=== PATIENT | male | born 1940 | race Caucasian/White ===

== ENCOUNTER 2016-04-12 06:26 | Inpatient (IN) | payer MEDICARE, MEDICAID ==
[~2016-04-12] VITALS: Ht 172.7 cm; Wt 87.0 kg
[~2016-04-12 06:26] MED LIST: ASPI81TA4 PO; CARV3.12 PO; DOXY100T16 PO; GUAI1TAB PO; LASI40TA PO; LEVO750T33 PO; NICO14DI20 TD; POTA10CA PO; PRAV20TA2 PO; PROA1AER INH; SENN-23 PO
[2016-04-12] MEDS ORDERED: ASPIRIN 81 MG CHEW TABLET As Ordered ONE (06:44)
[2016-04-12 06:58] LABS: BASO # 0.1 K/mm3 (0.0-0.2); BASO % 0.5 % (0.0-1.0); EOS # 0.1 K/mm3 (0.0-0.50); LARGE UNSTAINED CELL # 0.1 K/mm3 (0.0-0.4); LARGE UNSTAINED CELL % 1.1 % (0.0-4.0); LYMPH # 1.3 K/mm3 (1.5-4.5); LYMPH % 11.6 % (24.0-44.0); MEAN CORPUSCULAR HEMOGLOBIN 28.6 pg (27.0-33.0); MEAN CORPUSCULAR HGB CONC 32.4 g/dl (32.0-36.5); MEAN CORPUSCULAR VOLUME 88.2 fl (80.0-96.0); MONO # 0.4 K/mm3 (0.0-0.8); NEUTROPHILS # 9.1 K/mm3 (1.8-7.7); NEUTROPHILS % 81.9 % (36.0-66.0); PLATELET COUNT, AUTOMATED 219 k/mm3 (150-450); RED CELL DISTRIBUTION WIDTH 13.9 % (11.5-14.5); WHITE BLOOD COUNT 11.1 K/mm3 (4.0-10.0)
[2016-04-12 07:18] LABS: CREATININE FOR GFR 1.73 MG/DL (0.70-1.30); GLOMERULAR FILTRATION RATE 41.3 (>42); POTASSIUM SERUM 4.1 MEQ/L (3.5-5.1)
[2016-04-12 07:22] LABS: INR 3.13
[2016-04-12 07:28] LABS: ALBUMIN 4.1 GM/DL (3.2-5.2); ALBUMIN/GLOBULIN RATIO 1.14 (1.00-1.93); BILIRUBIN,DIRECT 0.6 MG/DL (0.0-0.2); BILIRUBIN,TOTAL 1.5 MG/DL (0.2-1.0); MAGNESIUM LEVEL 2.2 MG/DL (1.8-2.4); TOTAL PROTEIN 7.7 GM/DL (6.4-8.2)
[2016-04-12] MEDS ORDERED: AMIODARONE 150MG/3ML INJ (J0282) As Ordered ONE (07:32)
--- NOTE | 2016-04-12 08:17 | REP ---
Clinical: Abdominal pain. Findings: Small amount of perihepatic and pelvic ascites is appreciated of uncertain etiology. Calcifications within the right lobe of the liver appear bulky and chronic and may be related to prior instrumentation or old insult. Splenic parenchymal calcifications and calcified granuloma at the lung bases are also identified which may reflect prior granulomas disease. The pancreas is grossly unremarkable as are the bilateral adrenal glands and kidneys. Chronic-appearing perinephric stranding is appreciated bilaterally without hydronephrosis small intrarenal calcifications appear vascular. The gallbladder cannot exclude mild wall thickening or layering sludge and should be correlated clinically to exclude acute cholecystitis. The enteric system is without obstruction or acute inflammatory process and a normal terminal ileum and appendix are identified in the right lower quadrant. Pelvis demonstrates moderately prominent prostate gland with mass effect on the base of the bladder which is otherwise normal by noncontrast evaluation. Small fat containing inguinal hernias noted. The patient is status post aortoiliac stenting for aneurysm repair. No significant adenopathy. No free air. Musculoskeletal structures demonstrate degenerative changes. Lung bases demonstrate minimal right basilar atelectasis and pleural reaction. Impression: 1. Small amount of ascites in the perihepatic and pelvic distribution of uncertain etiology. 2. Subtle changes of the gallbladder as noted above may reflect cholecystitis and should be correlated with physical examination and ultrasound if necessary. 3. Evidence to suggest prior granulomas disease. 4. Further chronic changes include atherosclerotic disease with aortoiliac stenting for aneurysm, degenerative changes the musculoskeletal structures, fat containing inguinal hernias, and moderately prominent prostate gland. Signed by Denzel Del Real MD 04/12/2016 08:08 A
--- NOTE | 2016-04-12 08:21 | REP ---
AP portable sitting chest radiograph 04/12/2016 Indication: Chest pain Comparison: PA and lateral chest 06/15/2014, 08/12/2015 There has been a prior median sternotomy. Cardiac silhouette is mildly enlarged with left ventricular prominence, unchanged. There is mild interstitial prominence with lower lobe predominance most compatible with interstitial scarring , also accentuated by AP portable technique. The appearance is stable. Bones and soft tissues within normal limits. Impression: mild cardiomegaly again noted with evidence of prior median sternotomy. Mild generalized interstitial prominence contributed to by portable technique and likely some underlying interstitial fibrotic scarring . Superimposed mild pulmonary vascular congestion is not excluded. Signed by Nicky Yee MD 04/12/2016 08:12 A
--- NOTE | 2016-04-12 08:36 | REP ---
CT chest without contrast 04/12/16. Indication: Chest pain Comparison: Chest radiographs 08/12/2015 from [facility], and 04/12/16 Findings: The patient has a indwelling stent within the region of the aortic valve/ aortic root. Moderate calcifications and/or stents noted within the region of the left anterior descending coronary artery and the left circumflex coronary artery. Cardiac silhouette is mildly enlarged with left ventricular prominence. There are mediastinal nodes measuring up to 10 mm short-axis diameter and hilar nodes, some of which are calcified, consistent with old granulomatous disease Mild interstitial changes are noted bilaterally with lower lobe predominance. There is trace right basilar pleural effusion . There is a 7 mm noncalcified pulmonary nodule in the right lower lobe, image 63 series 204. Calcified granuloma is present within the posterior basilar segment right lower lobe on image 79 series 204. Small right apical bullous changes are seen. Coarse calcifications are seen within the posterior segment right lobe of liver most compatible with old granulomatous disease. There is minimal ascites surrounding the liver. There are a few calcified granulomata in the spleen. Visualized portions of pancreas and adrenal glands are normal. Gallbladder is partially contracted with thickened and/or sludge. There is a abdominal aortic by iliac stent incompletely included in field of view and was placed for a abdominal aortic aneurysm. Soft tissue fullness/lobular contour in the lateral mid pole left kidney may represent prominent lobulation and less likely mass. Impression 1. Prior median sternotomy; evidence of prior stent placement traversing the aortic valve. There is mild cardiomegaly with left ventricular prominence, unchanged 2. Interstitial changes bilaterally may be secondary to interstitial scarring pneumonitis or minimal interstitial pulmonary edema. There is trace right basilar pleural effusion 3. Noncalcified 7 mm pulmonary nodule within the right lower lobe for which follow-up CT chest is recommended in 3 months. 4. Mural thickening within the gallbladder and intraluminal sludge. Consider gallbladder old 5. Lobular contour lateral mid pole left kidney. Recommend follow-up renal ultrasound to exclude developing mass. Trace abdominal ascites Signed by Nicky Yee MD 04/12/2016 08:26 A
[2016-04-12] MEDS ORDERED: SENOKOT S TAB PO SCH (09:00)
[2016-04-12 09:46] LABS: FREE T4 1.59 NG/DL (0.76-1.46)
[2016-04-12] MEDS ORDERED: AMIO0.1T PO (09:48)
[2016-04-12] MEDS ORDERED: POTA10CA PO (09:48)
[2016-04-12] MEDS ORDERED: XARE20TA PO (09:48)
[2016-04-12] MEDS ORDERED: FURO40TA2 PO (09:48)
--- NOTE | 2016-04-12 10:07 | REP ---
Complete abdominal sonography: History: Abnormal CT study. CT examination is from earlier this same date. History of abdominal pain. Findings: Scanning through the right upper quadrant of the abdomen demonstrates a slightly contracted appearing thick-walled gallbladder without visible stone or polyp. No tenderness is seen. The gallbladder wall measures up to 5 mm in thickness. Common bile duct is normal measuring 0.4 cm in diameter. Coarse hepatic texture is seen. There is a fairly large coarse calcification in the right lobe of the liver corresponding to the calcified granuloma seen in this location on CT. No liver mass lesion is appreciated. There is no evidence of ascites. The pancreas is obscured by abdominal gas. Spleen is borderline in size displaying echogenic foci consistent with splenic granuloma. This corresponds to the CT findings. No focal splenic lesion is seen. Renal cortical echogenicity pattern is normal. There is cortical scarring affecting the upper and lower pole left kidney. No mass lesion is seen. No hydronephrosis is seen on either side. Renal cortical echogenicity pattern is normal. Left renal dimensions are 11.3 x 5.8 x 5.5 cm. Right kidney measures 11.2 x 4.8 x 4.5 cm. Impression: Granulomatous calcifications in the liver and spleen. Contracted appearing slightly thick-walled gallbladder without stones. No hydronephrosis seen. Renal cortical scarring upper and lower pole left kidney. Signed by Luis Dumont MD 04/12/2016 10:43 A
[2016-04-12 15:07] VITALS: BP 116/72
[2016-04-12] MEDS: RIVAROXABAN 20 MG TAB (XARELTO) PO SCH (16:54)
[2016-04-12] MEDS ORDERED: FUROSEMIDE 40 MG TAB PO SCH (17:00)
[2016-04-12 20:00] VITALS: BP 121/87
--- NOTE | 2016-04-12 20:17 | HPEPDOC ---
General Date of Admission 04/12/2016 Primary Care Physician: Cornel Mayes Attending Physician: MERCEDES GUADARRAMA MD Chief Complaint The patient is a 75-year-old male admitted with a reason for visit of Palpitations. Source: Patient Exam Limitations: No limitations History of Present Illness Patient is a 75 year old male with past medical history of CAD and COPD presenting with racing heart rate and abdominal pain. This is the first time the patient has experienced this. The patient first noticed his heart rate was fast 4 days ago. He uses an at home blood pressure monitor 4-5 times a day and noticed it upon using the monitor. He does not recall a precipitating event when he first noticed his heart rate. Over the last 4 days, the heart rate has been fluctuating, however patient did not keep track of the rate, only that it has been changing. Yesterday it was sustained at 140, however the patient did not have any symptoms. He denied dizziness, syncope and chest pain at the time. Patient called [facility] because he was concerned of his heart rate and they told him to go to the hospital. Upon entering [facility], patient presented with atrial flutter and was subsequently given 150 mg amiodarone IV. Patient no longer has atrial flutter but now continues to have atrial fibrillation. Highest heart rate today was 146. While examining the patient, the heart rate did not get above 120. Patient had an aortic valve replacement in January [address] Landry and coronary stents in December [address] Del Rosario at [facility]. Patient admits that he has had mild abdominal pain and bloating that has been present since yesterday. He describes it as a band that goes across his whole abdomen. He only feels the pain and bloating after he eats. Patient states the pain is "more of a pressure feeling." This is the first time he has ever had this pain. Denies chest pain, shortness of breath, nausea, vomiting, diarrhea, hematemesis, hematochezia, dizziness, syncope, and hematuria. Home Medications Scheduled (Aspirin EC Low Dose) 81 Mg Tab 81 MG PO DAILY (Reported) Amiodarone HCl (Amiodarone HCl) 100 Mg Tab 100 MG PO DAILY (Reported) Amiodarone HCl (Amiodarone HCl) 200 Mg Tab 200 MG PO Q12H Docusate Sod/Senna (Senna-S 8.6-50 mg) 1 Tab Tab 1 TAB PO BID (Reported) Furosemide (Furosemide) 40 Mg Tab 40 MG PO BID (Reported) Hydralazine HCl (Hydralazine HCl) 10 Mg Tab 10 MG PO BID Isosorbide Mononitrate (Isosorbide Mononitrate ER) 30 Mg Tab 30 MG PO DAILY Metoprolol Tartrate (Metoprolol Tartrate) 25 Mg Tab 25 MG PO Q12H Nicotine (Nicotine Transdermal Syst) 21 Mg/24 Hr Dis 1 PATCH TD DAILY Potassium Chloride (Klor-Con M10) 10 Meq Tabcr 10 MEQ PO BID (Reported) Rivaroxaban (Xarelto) 20 Mg Tab 20 MG PO QPM (Reported) Scheduled PRN Albuterol Sulfate (Proair Hfa) 108 Mcg/Act Aer 2 PUFFS INH PRN PRN PRN SHORTNESS OF BREATH (Reported) Allergies Coded Allergies: Budesonide (Verified Allergy, Intermediate, SWELLING (LEGS , STOMACHE), ) Formoterol (Verified Allergy, Intermediate, SWELLING (LEGS , STOMACHE), ) Ibuprofen (Verified Allergy, Unknown, 06/16/14) "I DONT KNOW. I CORNELIO FORGET. MY VISION I THINK" Past Medical History Medical History 1. CAD 2. COPD Surgical History 1. Aortic Valve replacement January 14 2016 2. Coronary stents December 2006 3. CABG 2003 4. 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 Pets: Has kittens at home and is allergic to them. Review of Symptoms Constitutional: Denies: Chills, Fatigue, Fever, Weight Loss Pulmonary: Denies: Cough, Dyspnea, Pleuritic Chest Pain Cardiovascular: Reports: Palpitations, Denies: Chest Pain, Edema, Orthopnea Gastrointestinal: Reports: Abdominal Pain, Denies: Constipation, Diarrhea, Hematochezia, Nausea, Vomiting Genitourinary: Denies: Dysuria, Hematuria Physical Examination General Exam: Positive: Alert, No Acute Distress Eye Exam: Positive: EOMI, Other Eye Symptoms (Arcus present bilaterally), PERRLA ENT Exam: Positive: Atraumatic, Mucous membr. moist/pink Neck Exam: Positive: Supple, Negative: JVD, Lymphadenopathy Chest Exam: Positive: Clear to auscultation, Negative: Rales, Rhonchi, Wheezing Heart Exam: Positive: Irregular Rhythm, Normal S1, Normal S2, Tachycardic, Negative: Gallops, Murmurs, Rubs Telemetry: Positive: Atrial fibrillation Abdomen Exam: Positive: Normal bowel sounds, Other (Negative Valadez's sign. Negative Psoas test.), Tenderness, Negative: Mass, Soft Extremity Exam: Negative: Clubbing, Cyanosis, Edema Neuro Exam: Positive: Cranial Nerves 3-12 NL, Sensation Intact, Strength at 5/ 5 X4 ext Vital Signs Blood pressure: 110/84, Pulse: 112, Respirations: 20, Pulse Oximetry 95% RA Height (in): 172.2 Weight (kg): 84.82 BMI (kg): 28.4 Laboratory Data Labs 24H Laboratory Tests 2 04/12/16 06:45: Aspartate Amino Transf (AST/SGOT) 21, Alanine Aminotransferase (ALT/SGPT) 18, Alkaline Phosphatase 97, Total Bilirubin 1.5H, Direct Bilirubin 0.6H, Albumin 4.1, Albumin/Globulin Ratio 1.14, Amylase Level 48, Free Thyroxine 1.59H, Lipase 164, Magnesium Level 2.2, Thyroid Stimulating Hormone (TSH) 3.410, Total Protein 7.7 04/12/16 06:46: Activated Partial Thromboplast Time 43.4H, Anion Gap 8, B-Type Natriuretic Peptide 598H, White Blood Count 11.1H, Red Blood Count 5.17, Hemoglobin 14.8, Hematocrit 45.6, Mean Corpuscular Volume 88.2, Mean Corpuscular Hemoglobin 28.6 , Mean Corpuscular Hemoglobin Concent 32.4, Red Cell Distribution Width 13.9, Platelet Count 219, Neutrophils (%) (Auto) 81.9H, Lymphocytes (%) (Auto) 11.6L, Monocytes (%) (Auto) 4.0, Eosinophils (%) (Auto) 1.0, Basophils (%) (Auto) 0.5, Neutrophils # (Auto) 9.1H, Lymphocytes # (Auto) 1.3L, Monocytes # (Auto) 0.4, Eosinophils # (Auto) 0.1, Basophils # (Auto) 0.1, Blood Urea Nitrogen 31H, Creatinine 1.73H, Sodium Level 136, Potassium Level 4.1, Chloride Level 97L, Carbon Dioxide Level 31, Calcium Level 9.0, Total Creatine Kinase 142, Creatine Kinase MB 3.9H, Creatine Kinase MB Relative Index 2.74, Glomerular Filtration Rate 41.3L, Large Unclassified Cells # 0.1, Large Unclassified Cells % 1.1, Prothromb Time International Ratio 3.13, Prothrombin Time 32.2H, Troponin I 0.04 04/12/16 07:23: Lactic Acid Level 2.0 CBC/BMP Laboratory Tests 04/12/16 06:46 Calcium Level 9.0, Total Creatine Kinase 142, Red Blood Count 5.17, Mean Corpuscular Volume 88.2, Mean Corpuscular Hemoglobin 28.6, Mean Corpuscular Hemoglobin Concent 32.4, Red Cell Distribution Width 13.9, Neutrophils (%) (Auto ) 81.9 H, Lymphocytes (%) (Auto) 11.6 L, Monocytes (%) (Auto) 4.0, Eosinophils ( %) (Auto) 1.0, Basophils (%) (Auto) 0.5, Neutrophils # (Auto) 9.1 H, Lymphocytes # (Auto) 1.3 L, Monocytes # (Auto) 0.4, Eosinophils # (Auto) 0.1, Basophils # (Auto) 0.1 Assessment/Plan Problems: (1) Atrial fibrillation, rapid Status: Resolved Problem Text: Patient was given 150mg amiodarone IV with no improvement in rate control. Patient was switched to 100mg amiodarone PO for the floor. Cardiology has been consulted. Patient had an aortic valve replacement in January 2016 and numerous other cardiac procedures including coronary stents in 2006 and CABG in 2003. These could likely be the etiology of this new onset atrial fibrillation. His potassium and magnesium levels are within normal range. Admission troponin was normal and CK-MB was mildly elevated. EKG showed atrial flutter on admission and right axis deviation. Patient is being admitted to the floor on telemetry and continued amiodarone. We will continue to monitor him. (2) Abdominal pain Status: Resolved Problem Text: Patient complains of mild abdominal pain and bloating across the entire abdomen after eating of one day duration. Patient denies any changes frequency or caliber of bowel movements. Ischemic colitis seems less likely due to lack of hematochezia and only a slightly tender abdomen. CT of the abdomen showed a slightly thickened gallbladder wall without stones and LFT's were within normal range, less likely gallbladder in etiology. AAA remains in differential considering patient had a AAA repair in the past, however AAA stent is in place, and largest dimension is less than [address] of the abdomen did not show any signs of obstruction. Patient could have appendicitis. Pancreatic enzymes were negative. (3) CHF (congestive heart failure) Status: Chronic Problem Text: Patient had a mildly elevated BNP of 598. He has a history of symptomatic CHF for which he had an aortic valve replacement in January 2016. Since his valve replacement, he has not had any edema, shortness of breath, orthopnea or chest pain.He does not currently have any symptoms of an CHF exacerbation. He continues to take Lasix 40mg BID. We will continue to monitor. (4) Pulmonary nodule Status: Acute Problem Text: CT chest showed 7 mm pulmonary nodule within the right lower lobe. Follow up CT scan in 3 months. Plan / VTE VTE Prophylaxis Ordered?: Yes (Xarelto) GME ATTESTATION GME ATTESTATION My preceptor for this patient encounter was physically present in the building during the encounter and was fully available. As needed, all aspects of the patient interview, examination, medical decision making process, and medical care plan development were reviewed and approved by the preceptor. Preceptor is aware and concurs with the plan as stated in the body of this note and will attest to such by his/her cosignature. PATRIZIA ALLEN DO Apr 12, 2016 12:01
[2016-04-12] MEDS: SENOKOT S TAB PO SCH (21:07)
[2016-04-12] MEDS: POTASSIUM CHLORIDE 10 MEQ SR TABLET PO SCH (21:07)
--- NOTE | 2016-04-12 23:34 | EDDOCDS ---
Nurse's Notes [facility] Name: Say Matute Age: 75 yrs Sex: Male : 1940 Arrival Date: 04/12/2016 Time: 06:26 Bed Admit Hold Private MD: Diagnosis: Atrial fibrillation and flutter;Abdominal and pelvic pain-rule out left renal mass, rule out gallbladder sludge Presentation: 04/12 06:33 Presenting complaint:. [facility] 06:33 Presenting complaint:. [facility] 06:36 Presenting complaint: Patient states: Racing pulse for about four days, now pain in [facility] stomach. 06:36 Acuity: BAMBI Level 2 [facility] 06:40 Adult Sepsis Screening: The patient does not have new or worsening altered mentation. [facility] Patient has a respiratory rate of greater than or equal to 22 (1 point). Systolic blood pressure is greater than 100. Patient has a qSOFA score of 1- Negative Sepsis Screen. Suicide/Homicide risk assessment- the patient denies having any suicidal and/or homicidal ideations and does not present with any other emotional, behavioral or mental health complaints. 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 Transition of care: patient was not received from another setting of care. 06:40 Method Of Arrival: Walkin/Carried/Asstd [facility] Triage Assessment: 06:44 General: Appears in no apparent distress, comfortable, Behavior is appropriate for age, [facility] cooperative. Pain: Location: abdomen Pain currently is 0 out of 10 on a pain scale. At worst was 5 out of 10 on a pain scale. The patient is triaged at the bedside. See Assessment in Nurses Notes section of ED record. Neurological: Level of Consciousness is awake, alert, Oriented to person, place, time. Respiratory: Airway is patent Respiratory effort is even, labored, Respiratory pattern is regular, symmetrical. Derm: Skin is pink, warm & dry. Musculoskeletal: Range of motion intact in all extremities. Historical: - Allergies: no known allergies; - Home Meds: 1. Lasix 40 mg Oral tab 1 tab 2 times per day (Last dose: 04/11/2016) 2. Xarelto 20 mg oral tab 1 tab once daily 3. Potassium Chloride Unknown Oral 1 cap 2 times per day 4. amiodarone 100 mg Oral tab 1 tab once daily (Last dose: 04/12/2016 05:00) - PMHx: CAD; COPD; - PSHx: CABG (2003); Stents, Coronary; AAA Repair; heart valve replacement; - Social history: Smoking status: Patient uses tobacco products, heavy tobacco smoker. No barriers to communication noted. - Family history: Not pertinent. - : The pt / caregiver states he / she is on anticoagulants: Xarelto Home medication list is obtained from the patient. - Exposure Risk Screening:: None identified. Assessment: 06:53 General: Appears in no apparent distress, comfortable, Behavior is appropriate for age, nn1 cooperative. Pain: Location: right lower quadrant and left lower quadrant Pain currently is 5 out of 10 on a pain scale. Cardiovascular: Capillary refill < 3 seconds Heart tones S1 S2 present Rhythm is atrial fibrillation Chest pain is denied. Respiratory: Airway is patent Respiratory effort is even, unlabored, Respiratory pattern is regular, symmetrical. GI: Abdomen is non- distended Bowel sounds present X 4 quads. Derm: Skin is normal. 07:30 General: Appears in no apparent distress, comfortable, Behavior is appropriate for age, ead cooperative, pleasant, Orders received for new medications. Dr. Andujar updated of pt's heart rate now maintaining between 60-120. Medication orders currently on hold. Will continue to monitor pt. Pt's family at bedside and updated on care plan. . Neurological: Level of Consciousness is awake, alert, obeys commands, Oriented to person, place, time. Respiratory: Airway is patent Respiratory effort is even, unlabored. Derm: Skin is pink, warm & dry. 08:13 Adult Sepsis Screening: The patient does not have new or worsening altered mentation. ead Patient has a respiratory rate of greater than or equal to 22 (1 point). Systolic blood pressure is greater than 100. Patient has a qSOFA score of 1- Negative Sepsis Screen. 08:30 General: Appears in no apparent distress, comfortable, Behavior is appropriate for age, ead cooperative. Neurological: No deficits noted. Cardiovascular: Rhythm is atrial fibrillation Chest pain is denied. Respiratory: Airway is patent Respiratory effort is even, unlabored. Derm: Skin is pink, warm & dry. 09:30 General: Appears in no apparent distress, comfortable, Behavior is appropriate for age, ead cooperative. Pain: Denies pain. Neurological: No deficits noted. Cardiovascular: Rhythm is atrial fibrillation. Respiratory: Airway is patent Respiratory effort is even, unlabored, Denies shortness of breath. Derm: Skin is pink, warm & dry. 10:30 General: Appears in no apparent distress, comfortable, Behavior is appropriate for age, ead cooperative. Neurological: No deficits noted. Cardiovascular: Rhythm is atrial fibrillation. Respiratory: Airway is patent Respiratory effort is even, unlabored. Derm: Skin is pink, warm & dry. 11:30 General: Appears in no apparent distress, comfortable, Behavior is appropriate for age, ead cooperative. Pain: Denies pain. Neurological: No deficits noted. Cardiovascular: Rhythm is atrial fibrillation Chest pain is denied. Respiratory: Airway is patent Respiratory effort is even, unlabored. Derm: Skin is pink, warm & dry. 12:00 General: pt provided with portable DVD player and dvd to watch due to no tv in room. Pt ead updated on wait for admission bed assignment. . Cardiovascular: Rhythm is atrial fibrillation. Respiratory: Airway is patent Respiratory effort is even, unlabored. Derm: Skin is pink, warm & dry. 12:30 General: Appears in no apparent distress, comfortable, Behavior is appropriate for age, ead cooperative. Neurological: No deficits noted. Cardiovascular: Rhythm is atrial fibrillation. Respiratory: Airway is patent Respiratory effort is even, unlabored. Derm: Skin is pink, warm & dry. 13:30 General: Appears in no apparent distress, comfortable. Cardiovascular: Rhythm is atrial ead fibrillation. Respiratory: Airway is patent Respiratory effort is even, unlabored. Derm: Skin is pink, warm & dry. 14:30 General: Appears in no apparent distress, comfortable, Behavior is appropriate for age, ead cooperative. Neurological: No deficits noted. Cardiovascular: Capillary refill < 3 seconds Rhythm is atrial fibrillation Chest pain is denied. Respiratory: Airway is patent Respiratory effort is even, unlabored. Derm: Skin is pink, warm & dry. 15:30 General: Appears in no apparent distress, comfortable, Behavior is appropriate for age, ead cooperative, pleasant. Neurological: No deficits noted. Cardiovascular: Rhythm is atrial fibrillation. Respiratory: Airway is patent Respiratory effort is even, unlabored. Derm: Skin is pink, warm & dry. Vital Signs: 06:44 BP 121 / 70; Pulse 146; Resp 24; Temp 98.6; Pulse Ox 95% ; Weight 84.82 kg; Height 5 cjh ft. 8 in. (172.72 cm); Pain 510; 07:18 BP 114 / 58 (auto/); ead 07:18 Pulse 116 MON; Pulse Ox 96% ; ead 07:30 BP 108 / 59 (auto/); ead 07:30 Pulse 106 MON; Pulse Ox 96% ; ead 07:45 BP 102 / 69 (auto/); ead 07:52 Pulse 123 MON; Pulse Ox 98% ; ead 08:00 BP 113 / 72 (auto/); ead 08:00 Pulse 106 MON; Pulse Ox 96% ; ead 08:08 Pulse 92 MON; Resp 22; Pulse Ox 96% ; ead 08:15 BP 112 / 71 (auto/); ead 08:15 Pulse 113 MON; Pulse Ox 97% ; ead 08:30 BP 107 / 70 (auto/); ead 08:30 Pulse 106 MON; Pulse Ox 96% ; ead 08:45 BP 110 / 78 (auto/); ead 08:46 Pulse 102 MON; Pulse Ox 96% ; ead 09:00 BP 136 / 86 (auto/); ead 09:01 Pulse 112 MON; Pulse Ox 96% ; ead 09:15 BP 99 / 53 (auto/); ead 09:16 Pulse 107 MON; Resp 18; Pulse Ox 95% on R/A; ead 09:30 BP 106 / 79 (auto/); ead 09:30 Pulse 103 MON; Pulse Ox 96% ; ead 09:45 BP 105 / 75 (auto/); ead 09:45 Pulse 101 MON; Pulse Ox 97% ; ead 10:00 BP 113 / 84 (auto/); ead 10:00 Pulse 99 MON; Pulse Ox 97% ; ead 10:15 BP 126 / 81 (auto/); ead 10:15 Pulse 107 MON; Pulse Ox 96% ; ead 10:30 BP 113 / 76 (auto/); ead 10:30 Pulse 106 MON; Pulse Ox 97% ; ead 10:39 Pulse 107 MON; Resp 18; Pulse Ox 95% on R/A; ead 10:45 BP 110 / 84 (auto/); ead 10:45 Pulse Ox 96% ; ead 11:00 BP 100 / 71 (auto/); ead 11:14 Pulse 94 MON; Resp 18; Pulse Ox 97% on R/A; ead 11:15 BP 112 / 85 (auto/); ead 11:15 Pulse 86 MON; Pulse Ox 97% ; ead 11:30 BP 113 / 89 (auto/); ead 11:30 Pulse 106 MON; Pulse Ox 96% ; ead 11:45 BP 118 / 99 (auto/); ead 11:45 Pulse 121 MON; Pulse Ox 96% ; ead 12:00 BP 127 / 104 (auto/); ead 12:00 Pulse 106 MON; Pulse Ox 95% ; ead 12:17 BP 127 / 82 (auto/); ead 12:17 Pulse 100 MON; Pulse Ox 89% ; ead 12:30 BP 110 / 64 (auto/); ead 12:30 Pulse 104 MON; Pulse Ox 97% ; ead 12:45 BP 112 / 58 (auto/); ead 12:45 Pulse 89 MON; Resp 18; Pulse Ox 97% on R/A; ead 13:15 BP 137 / 85 (auto/); ead 13:15 Pulse 122 MON; Pulse Ox 98% ; ead 13:27 Pulse 105 MON; Resp 18; Pulse Ox 96% on R/A; Pain 0/10; ead 13:45 BP 119 / 73 (auto/); ead 13:45 Pulse 100 MON; Pulse Ox 94% ; ead 14:00 BP 122 / 86 (auto/); ead 14:00 Pulse 110 MON; Pulse Ox 97% ; ead 14:15 BP 110 / 84 (auto/); ead 14:15 Pulse 105 MON; Pulse Ox 96% ; ead 14:40 BP 116 / 72 (auto/); ead 14:40 Pulse 119 MON; Pulse Ox 96% ; ead 16:02 Pulse 112 MON; Resp 18; Pulse Ox 98% on R/A; ead 06:44 Body Mass Index 28.43 (84.82 kg, 172.72 cm) [facility] Vitals: 06:50 Log In Time: April 12, 2016 at 06:26. [facility] ED Course: 06:27 Patient visited by Mimi Harris. gjb 06:27 Patient moved to Waiting gjb 06:33 Patient moved to 18 [facility] 06:37 Triage Initiated [facility] 06:38 Patient moved to 2 [facility] 06:40 Juliana French MD is Attending Physician. fg 06:40 Patient visited by Juliana French MD. fg 06:49 Patient visited by Briseida Cassidy PCA. ls3 06:49 EKG done. (by ED staff). Reviewed by Juliana French MD. ls3 06:54 monitor car operator on. Pulse ox on. NIBP on. nn1 06:54 Inserted saline lock: 20 gauge in right antecubital area and blood collected. The nn1 patient tolerated the procedure well. 07:00 Teresa Olmedo RN is Primary Nurse. ead 07:01 Report received from Madhuri Lund RN. ead 07:03 Attending Physician role handed off by Juliana French MD ml 07:03 Ashley Qureshi MD is Attending Physician. ml 07:13 Liver Profile Sent. ead 07:13 Amylase Sent. ead 07:13 Lipase Sent. ead 07:29 Patient visited by Teresa Olmedo RN. ead 07:29 Lactic Acid (Andujar tube on ice) Sent. ead 07:29 Type & Screen Sent. ead 07:41 Patient visited by Pauline Cobb PCA. jlf 07:41 EKG done. (by ED staff). Reviewed by Ashley Qureshi MD. jlf 07:42 Patient visited by Pauline Cobb PCA. jlf 08:12 Patient visited by Teresa Olmedo RN. ead 08:17 Patient name changed from Say\S\\S\Juju\S\ to Say\S\ \S\Juju. EDMS 08:17 [facility] Payment Agreement was scanned into [employer] and attached to record. lg 08:39 Patient moved to Ultrasound sm5 08:49 CT ABD & PELVIS W/O CONTRAST Returned. EDMS 08:49 portable chest Returned. EDMS 08:50 CT Chest without contrast Returned. EDMS 09:16 The patient / caregiver is instructed regarding the plan of care and ED course. Patient ead has correct armband on for positive identification. Placed in gown. Bed in low position. Call light in reach. Side rails up X 1. Adult w/ patient. 09:16 No procedures done that require assistance. ead 09:24 Patient moved to 2 sm5 09:43 Patient visited by Pauline Cobb PCA. jlf 10:03 Dionicio Everett is Hospitalizing Provider. ml 10:32 US Abd complete Returned. EDMS 15:06 T-Sheet-- Draft Copy was scanned into [employer] and attached to record. gb 16:29 Patient moved to 21 ead 17:15 Patient moved to Admit Hold mcp 22:57 Primary Nurse role handed off by Teresa Olmedo,RN rs6 Administered Medications: 06:53 Drug: Aspirin 324 mg [aspirin 81 mg chewable tablet (4 tabs)] Route: PO; nn1 16:27 Not Given (change in pt status, aware): amiodarone 150 mg IVP once ead 16:27 Not Given (change in pt status, aware): Metoprolol 5 mg IVP every 15 minutes; Hold ead if SBP < 100mmHg or HR < 60bpm x3 Order Results: Lab Order: B-Type Natiuretic Peptide; SPEC'M 04/12/16 06:46 Test: BRAIN NATRIURETIC PEPTIDE; Value: 598; Range: <100; Abnormal: Above high normal; Units: PG/ML; Status: F Lab Order: Basic Metabolic Profile; SPEC'M 04/12/16 06:46 Test: GLUCOSE, FASTING; Value: 229; Range: 83-110; Abnormal: Above high normal; Units: MG/DL; Status: F Test: BLOOD UREA NITROGEN; Value: 31; Range: 7-18; Abnormal: Above high normal; Units: MG/DL; Status: F Test: CREATININE FOR GFR; Value: 1.73; Range: 0.70-1.30; Abnormal: Above high normal; Units: MG/DL; Status: F Test: GLOMERULAR FILTRATION RATE; Value: 41.3; Range: >42; Abnormal: Below low normal; Status: F Test: SODIUM LEVEL; Value: 136; Range: 136-145; Units: MEQ/L; Status: F Test: POTASSIUM SERUM; Value: 4.1; Range: 3.5-5.1; Units: MEQ/L; Status: F Test: CHLORIDE LEVEL; Value: 97; Range: 98-107; Abnormal: Below low normal; Units: MEQ/L; Status: F Test: CARBON DIOXIDE LEVEL; Value: 31; Range: 21-32; Units: MEQ/L; Status: F Test: ANION GAP; Value: 8; Range: 8-16; Units: MEQ/L; Status: F Test: CALCIUM LEVEL; Value: 9.0; Range: 8.8-10.2; Units: MG/DL; Status: F Test Note: ; Units are mL/min/1.73 m2 Chronic Kidney Disease Staging per NKF: Stage I & II GFR >=60 Normal to Mildly Decreased Stage III GFR 30-59 Moderately Decreased Stage IV GFR 15-29 Severely Decreased Stage V GFR <15 Very Little GFR Left ESRD GFR <15 on TIMBER PACKER Lab Order: CBC with Diff; SPEC'M 04/12/16 06:46 Test: WHITE BLOOD COUNT; Value: 11.1; Range: 4.0-10.0; Abnormal: Above high normal; Units: K/mm3; Status: F Test: RED BLOOD COUNT; Value: 5.17; Range: 4.30-6.10; Units: M/mm3; Status: F Test: HEMOGLOBIN; Value: 14.8; Range: 14.0-18.0; Units: g/dl; Status: F Test: HEMATOCRIT; Value: 45.6; Range: 42.0-52.0; Units: %; Status: F Test: MEAN CORPUSCULAR VOLUME; Value: 88.2; Range: 80.0-96.0; Units: fl; Status: F Test: MEAN CORPUSCULAR HEMOGLOBIN; Value: 28.6; Range: 27.0-33.0; Units: pg; Status: F Test: MEAN CORPUSCULAR HGB CONC; Value: 32.4; Range: 32.0-36.5; Units: g/dl; Status: F Test: RED CELL DISTRIBUTION WIDTH; Value: 13.9; Range: 11.5-14.5; Units: %; Status: F Test: PLATELET COUNT, AUTOMATED; Value: 219; Range: 150-450; Units: k/mm3; Status: F Test: NEUTROPHILS %; Value: 81.9; Range: 36.0-66.0; Abnormal: Above high normal; Units: %; Status: F Test: LYMPH %; Value: 11.6; Range: 24.0-44.0; Abnormal: Below low normal; Units: %; Status: F Test: MONO %; Value: 4.0; Range: 0.0-5.0; Units: %; Status: F Test: EOS %; Value: 1.0; Range: 0.0-3.0; Units: %; Status: F Test: BASO %; Value: 0.5; Range: 0.0-1.0; Units: %; Status: F Test: LARGE UNSTAINED CELL %; Value: 1.1; Range: 0.0-4.0; Units: %; Status: F Test: NEUTROPHILS #; Value: 9.1; Range: 1.8-7.7; Abnormal: Above high normal; Units: K/mm3; Status: F Test: LYMPH #; Value: 1.3; Range: 1.5-4.5; Abnormal: Below low normal; Units: K/mm3; Status: F Test: MONO #; Value: 0.4; Range: 0.0-0.8; Units: K/mm3; Status: F Test: EOS #; Value: 0.1; Range: 0.0-0.50; Units: K/mm3; Status: F Test: BASO #; Value: 0.1; Range: 0.0-0.2; Units: K/mm3; Status: F Test: LARGE UNSTAINED CELL #; Value: 0.1; Range: 0.0-0.4; Units: K/mm3; Status: F Lab Order: Cardiac Injury Profile; SPEC'M 04/12/16 06:46 Test: CPK CREATINE PHOSPHOKINASE; Value: 142; Range: 39-308; Units: U/L; Status: F Test: CK-MB VALUE MASS; Value: 3.9; Range: 0.0-3.6; Abnormal: Above high normal; Units: NG/ML; Status: F Test: MB/CK RELATIVE INDEX; Value: 2.74; Range: < OR =4; Status: F Test Note: ; DIAGNOSIS CRITERIA MMB ng/ml Relative Index (RI) NON-AMI < or = 5 N/A ANDUJAR ZONE > 5 < or = 4 AMI > 5 > 4 Lab Order: Partial Thromboplastin Time; SPEC'M 04/12/16 06:46 Test: PARTIAL THROMBOPLASTIN TIME; Value: 43.4; Range: 26.6-37.1; Abnormal: Above high normal; Units: SECONDS; Status: F Test: PROTHROMBIN TIME; Range: 12.3-14.5; Units: SECONDS; Status: I Test: INR; Status: I Lab Order: Troponin; [facility]04/12/16 06:46 Test: TROPONIN I; Value: 0.04; Range: < 0.10; Units: NG/ML; Status: F Test Note: ; Troponin I Reference Interval for [employer] LOCI: 99th Percentile= 0.00-0.045 ng/ml Risk Stratification: <= 0.10 ng/ml Decreased Risk for Adverse Clinical Events. 0.10-1.50 ng/ml Increased Risk for Adverse Clinical Events. Evaluation of additional criterion and/or repeat testing in 2-6 hours is suggested to rule out myocardial damage. >= 1.50 ng/ml Indicative of Myocardial Injury. Lab Order: Liver Profile; 04/12/16 06:45 Test: AST/SGOT; Value: 21; Range: 15-37; Units: U/L; Status: F Test: ALT/SGPT; Value: 18; Range: 12-78; Units: U/L; Status: F Test: ALKALINE PHOSPHATASE; Value: 97; Range: 45-117; Units: U/L; Status: F Test: BILIRUBIN,TOTAL; Value: 1.5; Range: 0.2-1.0; Abnormal: Above high normal; Units: MG/DL; Status: F Test: BILIRUBIN,DIRECT; Value: 0.6; Range: 0.0-0.2; Abnormal: Above high normal; Units: MG/DL; Status: F Test: TOTAL PROTEIN; Value: 7.7; Range: 6.4-8.2; Units: GM/DL; Status: F Test: ALBUMIN; Value: 4.1; Range: 3.2-5.2; Units: GM/DL; Status: F Test: ALBUMIN/GLOBULIN RATIO; Value: 1.14; Range: 1.00-1.93; Status: F Lab Order: Amylase; 04/12/16 06:45 Test: AMYLASE; Value: 48; Range: 25-115; Units: U/L; Status: F Lab Order: Lipase; 04/12/16 06:45 Test: LIPASE; Value: 164; Range: 73-393; Units: U/L; Status: F Lab Order: Type & Screen; 04/12/16 07:23 Test: BLOOD TYPE; Value: B POS; Status: F Test: AB SCREEN (INDIRECT CHILO)GEL; Value: NEGATIVE; Status: F Lab Order: Lactic Acid (Andujar tube on ice); 04/12/16 07:23 Test: LACTIC ACID LEVEL, LACTATE; Value: 2.0; Range: 0.4-2.0; Units: MMOL/L; Status: F Lab Order: MAGNESIUM LEVEL; 04/12/16 06:45 Test: MAGNESIUM LEVEL; Value: 2.2; Range: 1.8-2.4; Units: MG/DL; Status: F Lab Order: PROTHROMBIN TIME PROFILE\E\INR; 04/12/16 06:46 Test: PROTHROMBIN TIME; Value: 32.2; Range: 12.3-14.5; Abnormal: Above high normal; Units: SECONDS; Status: F Test: INR; Value: 3.13; Status: F Test Note: ; THERAPUTIC HUMAN INR VALUES INDICATIONS NORMAL RANGES PROPHYLAXIS/TREATMENT OF: VENOUS THROMBOSIS 2.0-3.0 PULMONARY EMBOLISM 2.0-3.0 PREVENTION OF SYSTEMIC EMBOLISM FROM: TISSUE HEART VALVES 2.0-3.0 ACUTE MYOCARDIAL INFARCTION 2.0-3.0 VALVULAR HEART DISEASE 2.0-3.0 ATRIAL FIBRILLATION 2.0-3.0 MECHANICAL VALVES(HIGH RISK) 2.5-3.5 RECURRENT MYOCARDIAL INFARCTION 2.5-3.5 Lab Order: TSH with Free T4; 04/12/16 06:45 Test: THYROID STIMULATING HORMONE; Value: 3.410; Range: 0.358-3.740; Units: uIU/ML; Status: F Test: FREE T4; Value: 1.59; Range: 0.76-1.46; Abnormal: Above high normal; Units: NG/DL; Status: F Lab Order: CARDIAC MARKER PANEL; 04/12/16 13:02 Test: CPK CREATINE PHOSPHOKINASE; Value: 121; Range: 39-308; Units: U/L; Status: F Test: CK-MB VALUE MASS; Value: 4.1; Range: 0.0-3.6; Abnormal: Above high normal; Units: NG/ML; Status: F Test: MB/CK RELATIVE INDEX; Value: 3.38; Range: < OR =4; Status: F Test: TROPONIN I; Value: 0.06; Range: < 0.10; Abnormal: Delta; Units: NG/ML; Status: F Test Note: ; DIAGNOSIS CRITERIA MMB ng/ml Relative Index (RI) NON-AMI < or = 5 N/A ANDUJAR ZONE > 5 < or = 4 AMI > 5 > 4 Radiology Order: portable chest Test: portable chest REASON FOR EXAMINATION: Chest Pain; AP portable sitting chest radiograph 04/12/2016; ; Indication: Chest pain; ; Comparison: PA and lateral chest 06/15/2014, 08/12/2015; ; There has been a prior median sternotomy. Cardiac silhouette is mildly enlarged; with left ventricular prominence, unchanged. There is mild interstitial; prominence with lower lobe predominance most compatible with interstitial; scarring , also accentuated by AP portable technique. The appearance is stable.; Bones and soft tissues within normal limits.; ; Impression: mild cardiomegaly again noted with evidence of prior median; sternotomy.; ; Mild generalized interstitial prominence contributed to by portable technique and; likely some underlying interstitial fibrotic scarring . Superimposed mild; pulmonary vascular congestion is not excluded.; ; ; Signed by; Nicky Yee MD 04/12/2016 08:12 A; Radiology Order: CT Chest without contrast Test: CT Chest without contrast REASON FOR EXAMINATION: Chest Pain; CT chest without contrast 04/12/16.; ; Indication: Chest pain; ; Comparison: Chest radiographs 08/12/2015 from [facility], and 04/12/16; ; Findings: The patient has a indwelling stent within the region of the aortic; valve/ aortic root. Moderate calcifications and/or stents noted within the; region of the left anterior descending coronary artery and the left circumflex; coronary artery. Cardiac silhouette is mildly enlarged with left ventricular; prominence. There are mediastinal nodes measuring up to 10 mm short-axis; diameter and hilar nodes, some of which are calcified, consistent with old; granulomatous disease; ; Mild interstitial changes are noted bilaterally with lower lobe predominance.; There is trace right basilar pleural effusion . There is a 7 mm noncalcified; pulmonary nodule in the right lower lobe, image 63 series 204. Calcified; granuloma is present within the posterior basilar segment right lower lobe on; image 79 series 204. Small right apical bullous changes are seen.; ; Coarse calcifications are seen within the posterior segment right lobe of liver; most compatible with old granulomatous disease. There is minimal ascites; surrounding the liver. There are a few calcified granulomata in the spleen.; Visualized portions of pancreas and adrenal glands are normal. Gallbladder is; partially contracted with thickened and/or sludge. There is a abdominal aortic; by iliac stent incompletely included in field of view and was placed for a; abdominal aortic aneurysm. Soft tissue fullness/lobular contour in the lateral; mid pole left kidney may represent prominent lobulation and less likely; mass.; ; Impression; 1. Prior median sternotomy; evidence of prior stent placement traversing the; aortic valve. There is mild cardiomegaly with left ventricular prominence,; unchanged; 2. Interstitial changes bilaterally may be secondary to interstitial scarring; pneumonitis or minimal interstitial pulmonary edema. There is trace right; basilar pleural effusion; ; 3. Noncalcified 7 mm pulmonary nodule within the right lower lobe for which; follow-up CT chest is recommended in 3 months.; ; 4. Mural thickening within the gallbladder and intraluminal sludge. Consider; gallbladder old; ; 5. Lobular contour lateral mid pole left kidney. Recommend follow-up renal; ultrasound to exclude developing mass. Trace abdominal ascites; ; ; Signed by; Nicky Yee MD 04/12/2016 08:26 A; Radiology Order: CT ABD & PELVIS W/O CONTRAST Test: CT ABD & PELVIS W/O CONTRAST REASON FOR EXAMINATION: Abdomen Pain; Clinical: Abdominal pain.; ; Findings:; Small amount of perihepatic and pelvic ascites is appreciated of uncertain; etiology. Calcifications within the right lobe of the liver appear bulky and; chronic and may be related to prior instrumentation or old insult. Splenic; parenchymal calcifications and calcified granuloma at the lung bases are also; identified which may reflect prior granulomas disease. The pancreas is grossly; unremarkable as are the bilateral adrenal glands and kidneys. Chronic-appearing; perinephric stranding is appreciated bilaterally without hydronephrosis small; intrarenal calcifications appear vascular. The gallbladder cannot exclude mild; wall thickening or layering sludge and should be correlated clinically to exclude; acute cholecystitis. The enteric system is without obstruction or acute; inflammatory process and a normal terminal ileum and appendix are identified in; the right lower quadrant. Pelvis demonstrates moderately prominent prostate; gland with mass effect on the base of the bladder which is otherwise normal by; noncontrast evaluation. Small fat containing inguinal hernias noted. The; patient is status post aortoiliac stenting for aneurysm repair. No significant; adenopathy. No free air. Musculoskeletal structures demonstrate degenerative; changes. Lung bases demonstrate minimal right basilar atelectasis and pleural; reaction.; ; Impression:; 1. Small amount of ascites in the perihepatic and pelvic distribution of; uncertain etiology.; 2. Subtle changes of the gallbladder as noted above may reflect cholecystitis; and should be correlated with physical examination and ultrasound if necessary.; 3. 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 Further chronic changes include atherosclerotic disease with aortoiliac; stenting for aneurysm, degenerative changes the musculoskeletal structures, fat; containing inguinal hernias, and moderately prominent prostate gland.; ; ; Signed by; Denzel Del Real MD 04/12/2016 08:08 A; Radiology Order: US Abd complete Test: US Abd complete REASON FOR EXAMINATION: ruq and left kidney, ab ct; Complete abdominal sonography:; ; History: Abnormal CT study. CT examination is from earlier this same date.; History of abdominal pain.; ; Findings: Scanning through the right upper quadrant of the abdomen demonstrates; a slightly contracted appearing thick-walled gallbladder without visible stone or; polyp. No tenderness is seen. The gallbladder wall measures up to 5 mm in; thickness. Common bile duct is normal measuring 0.4 cm in diameter. Coarse; hepatic texture is seen. There is a fairly large coarse calcification in the; right lobe of the liver corresponding to the calcified granuloma seen in this; location on CT. No liver mass lesion is appreciated. There is no evidence of; ascites. The pancreas is obscured by abdominal gas. Spleen is borderline in; size displaying echogenic foci consistent with splenic granuloma. This; corresponds to the CT findings. No focal splenic lesion is seen.; ; Renal cortical echogenicity pattern is normal. There is cortical scarring; affecting the upper and lower pole left kidney. No mass lesion is seen. No; hydronephrosis is seen on either side. Renal cortical echogenicity pattern is; normal. Left renal dimensions are 11.3 x 5.8 x 5.5 cm. Right kidney measures; 11.2 x 4.8 x 4.5 cm.; ; Impression:; ; Granulomatous calcifications in the liver and spleen. Contracted appearing; slightly thick-walled gallbladder without stones. No hydronephrosis seen. Renal; cortical scarring upper and lower pole left kidney.; ; ; Signed by; Luis Dumont MD 04/12/2016 10:43 A; Outcome: 10:04 Decision to Hospitalize by Provider. 23:33 Patient left the ED. cz Signatures: Dispatcher [employer] EDMS Ashley Qureshi MD MD ml Peters, Mary, RN RN Angel Damon RN RN Annalisa Haynes, Reg Reg gb CiciCindy, Reg Reg lg Pam Perez sm5 Sherice Badillo, RN RN sls1 Brianna RecioRN RN Pauline Powell, BALLOON PILOT BALLOON PILOT jlf Teresa Olmedo,RN RN Belem Zuniga, BALLOON PILOT BALLOON PILOT rs6 Faye Fraser,RN RN nn1 Juliana French MD MD Briseida Cassidy, BALLOON PILOT BALLOON PILOT ls3 Mimi Harris Corrections: (The following items were deleted from the chart) 07:15 07:13 MAGNESIUM LEVEL+LAB sent. [facility] EDMS 07:15 07:13 PROTHROMBIN TIME PROFILE\E\INR+LAB sent. [facility] EDMS 07:23 06:44 Home Meds: amiodarone 100 mg Oral tab 1 tab once daily; [facility]
--- NOTE | 2016-04-12 23:34 | EDDOCDS ---
Physician Documentation [facility] Name: Say Matute Age: 75 yrs Sex: Male : 1940 Arrival Date: 04/12/2016 Time: 06:26 Bed Admit Hold Private MD: Disposition: 04/12 12:11 Critical Care:. ml Disposition: 04/12/16 10:04 Hospitalization ordered by Dionicio Everett for Inpatient Admission. Preliminary diagnosis are Atrial fibrillation and flutter, Abdominal and pelvic pain - rule out left renal mass, rule out gallbladder sludge. - Bed requested for ICU. - Status is Inpatient Admission. cz - Condition is Stable. - Problem is new. - Symptoms are unchanged. Historical: - Allergies: no known allergies; - Home Meds: 1. Lasix 40 mg Oral tab 1 tab 2 times per day (Last dose: 04/11/2016) 2. Xarelto 20 mg oral tab 1 tab once daily 3. Potassium Chloride Unknown Oral 1 cap 2 times per day 4. amiodarone 100 mg Oral tab 1 tab once daily (Last dose: 04/12/2016 05:00) - PMHx: CAD; COPD; - PSHx: CABG (2003); Stents, Coronary; AAA Repair; heart valve replacement; - Social history: Smoking status: Patient uses tobacco products, heavy tobacco smoker. No barriers to communication noted. - Family history: Not pertinent. - : The pt / caregiver states he / she is on anticoagulants: Xarelto Home medication list is obtained from the patient. - Exposure Risk Screening:: None identified. Vital Signs: 06:44 BP 121 / 70; Pulse 146; Resp 24; Temp 98.6; Pulse Ox 95% ; Weight 84.82 kg / 187 lbs; [facility] Height 5 ft. 8 in. (172.72 cm); Pain 5/10; 07:18 BP 114 / 58 (auto/); ead 07:18 Pulse 116 MON; Pulse Ox 96% ; ead 07:30 BP 108 / 59 (auto/); ead 07:30 Pulse 106 MON; Pulse Ox 96% ; ead 07:45 BP 102 / 69 (auto/); ead 07:52 Pulse 123 MON; Pulse Ox 98% ; ead 08:00 BP 113 / 72 (auto/); ead 08:00 Pulse 106 MON; Pulse Ox 96% ; ead 08:08 Pulse 92 MON; Resp 22; Pulse Ox 96% ; ead 08:15 BP 112 / 71 (auto/); ead 08:15 Pulse 113 MON; Pulse Ox 97% ; ead 08:30 BP 107 / 70 (auto/); ead 08:30 Pulse 106 MON; Pulse Ox 96% ; ead 08:45 BP 110 / 78 (auto/); ead 08:46 Pulse 102 MON; Pulse Ox 96% ; ead 09:00 BP 136 / 86 (auto/); ead 09:01 Pulse 112 MON; Pulse Ox 96% ; ead 09:15 BP 99 / 53 (auto/); ead 09:16 Pulse 107 MON; Resp 18; Pulse Ox 95% on R/A; ead 09:30 BP 106 / 79 (auto/); ead 09:30 Pulse 103 MON; Pulse Ox 96% ; ead 09:45 BP 105 / 75 (auto/); ead 09:45 Pulse 101 MON; Pulse Ox 97% ; ead 10:00 BP 113 / 84 (auto/); ead 10:00 Pulse 99 MON; Pulse Ox 97% ; ead 10:15 BP 126 / 81 (auto/); ead 10:15 Pulse 107 MON; Pulse Ox 96% ; ead 10:30 BP 113 / 76 (auto/); ead 10:30 Pulse 106 MON; Pulse Ox 97% ; ead 10:39 Pulse 107 MON; Resp 18; Pulse Ox 95% on R/A; ead 10:45 BP 110 / 84 (auto/); ead 10:45 Pulse Ox 96% ; ead 11:00 BP 100 / 71 (auto/); ead 11:14 Pulse 94 MON; Resp 18; Pulse Ox 97% on R/A; ead 11:15 BP 112 / 85 (auto/); ead 11:15 Pulse 86 MON; Pulse Ox 97% ; ead 11:30 BP 113 / 89 (auto/); ead 11:30 Pulse 106 MON; Pulse Ox 96% ; ead 11:45 BP 118 / 99 (auto/); ead 11:45 Pulse 121 MON; Pulse Ox 96% ; ead 12:00 BP 127 / 104 (auto/); ead 12:00 Pulse 106 MON; Pulse Ox 95% ; ead 12:17 BP 127 / 82 (auto/); ead 12:17 Pulse 100 MON; Pulse Ox 89% ; ead 12:30 BP 110 / 64 (auto/); ead 12:30 Pulse 104 MON; Pulse Ox 97% ; ead 12:45 BP 112 / 58 (auto/); ead 12:45 Pulse 89 MON; Resp 18; Pulse Ox 97% on R/A; ead 13:15 BP 137 / 85 (auto/); ead 13:15 Pulse 122 MON; Pulse Ox 98% ; ead 13:27 Pulse 105 MON; Resp 18; Pulse Ox 96% on R/A; Pain 0/10; ead 13:45 BP 119 / 73 (auto/); ead 13:45 Pulse 100 MON; Pulse Ox 94% ; ead 14:00 BP 122 / 86 (auto/); ead 14:00 Pulse 110 MON; Pulse Ox 97% ; ead 14:15 BP 110 / 84 (auto/); ead 14:15 Pulse 105 MON; Pulse Ox 96% ; ead 14:40 BP 116 / 72 (auto/); ead 14:40 Pulse 119 MON; Pulse Ox 96% ; ead 16:02 Pulse 112 MON; Resp 18; Pulse Ox 98% on R/A; ead 06:44 Body Mass Index 28.43 (84.82 kg, 172.72 cm) [facility] MDM: 06:36 ECG WITH READING ER PHYS+CARDIAG ordered. EDMS 06:41 Aspirin Chewable Tablet 324 mg PO once ordered. fg 06:41 [employer]/Pulse Ox/q 30 min VS ordered. fg 06:41 IV Saline Lock ordered. fg 06:41 Rhythm Strip to chart ordered. fg 06:41 Undress patient appropriately for examination ordered. fg 06:42 B-Type Natiuretic Peptide Ordered. EDMS 06:42 Basic Metabolic Profile Ordered. EDMS 06:42 CBC with Diff Ordered. EDMS 06:42 Cardiac Injury Profile Ordered. EDMS 06:42 Partial Thromboplastin Time Ordered. EDMS 06:42 Troponin Ordered. EDMS 06:42 portable chest Ordered. EDMS 07:05 Type & Screen Ordered. EDMS 07:05 Liver Profile Ordered. EDMS 07:05 Amylase Ordered. EDMS 07:05 Lipase Ordered. EDMS 07:07 Lactic Acid (Andujar tube on ice) Ordered. EDMS 07:15 MAGNESIUM LEVEL Ordered. EDMS 07:15 PROTHROMBIN TIME PROFILE\E\INR Ordered. EDMS 07:22 amiodarone 150 mg IVP once ordered. ml 07:22 Metoprolol 5 mg IVP every 15 minutes; Hold if SBP < 100mmHg or HR < 60bpm x3 ordered. ml 07:23 Basic Metabolic Profile Reviewed. ml 07:23 CBC with Diff Reviewed. ml 07:23 Cardiac Injury Profile Reviewed. ml 07:23 Partial Thromboplastin Time Reviewed. ml 07:23 Troponin Reviewed. ml 07:35 CT Chest without contrast Ordered. EDMS 07:35 CT ABD & PELVIS W/O CONTRAST Ordered. EDMS 07:41 ECG WITH READING ER PHYS+CARDIAG ordered. EDMS 08:07 B-Type Natiuretic Peptide Reviewed. ml 08:07 Partial Thromboplastin Time Reviewed. ml 08:07 Liver Profile Reviewed. ml 08:07 PROTHROMBIN TIME PROFILE\E\INR Reviewed. ml 08:07 Amylase Reviewed. ml 08:07 Lipase Reviewed. ml 08:07 Lactic Acid (Andujar tube on ice) Reviewed. ml 08:07 MAGNESIUM LEVEL Reviewed. ml 08:10 Financial registration complete. lg 08:17 Type & Screen Reviewed. ml 08:17 [facility] [place] Payment Agreement was scanned into [employer] and attached to record. lg 08:44 US Abd complete Ordered. EDMS 08:59 BED REQUEST+ADM ordered. EDMS 09:00 TSH with Free T4 Ordered. EDMS 10:02 TSH with Free T4 Reviewed. ml 10:02 portable chest Reviewed. ml 10:02 CT Chest without contrast Reviewed. ml 10:02 CT ABD & PELVIS W/O CONTRAST Reviewed. ml 12:32 Admission / Observation Status ordered. EDMS 12:33 CARDIAC MARKER PANEL Ordered. EDMS 12:36 URINALYSIS Ordered. EDMS 12:36 URINE CULTURE Ordered. EDMS 14:27 ECHOCARD,DOPPLER/COLOR FLOW ordered. EDMS 15:06 T-Sheet-- Draft Copy was scanned into [employer] and attached to record. gb 18:18 REGULAR DIET ordered. EDMS 19:32 CBC WITH DIFFERENTIAL Ordered. EDMS 19:32 BASIC METABOLIC PROFILE Ordered. EDMS 20:38 LIVER PROFILE Ordered. EDMS Administered Medications: 06:53 Drug: Aspirin 324 mg [aspirin 81 mg chewable tablet (4 tabs)] Route: PO; nn1 16:27 Not Given (change in pt status, aware): amiodarone 150 mg IVP once ead 16:27 Not Given (change in pt status, aware): Metoprolol 5 mg IVP every 15 minutes; Hold ead if SBP < 100mmHg or HR < 60bpm x3 Critical Care Time: 12:11 Critical care time: Bedside Care: 120 minutes, Consultation: 20 minutes. Total time: ml 140 minutes Signatures: Dispatcher [employer] EDMS Ashley Qureshi MD MD ml Zecher, Calvin, RN RN cz Annalisa Haynes, Reg Reg gb Cindy Bolanos, Reg Reg lg Brianna Recio RN RN [facility] Teresa OlmedoRN RN Juliana Reardon MD MD Nayla Masters RN RN [facility] Faye Fraser RN nn1 The chart was reviewed and I authenticate all verbal orders and agree with the evaluation and treatment provided.Corrections: (The following items were deleted from the chart) 07:15 07:05 PROTHROMBIN TIME PROFILE\E\INR+LAB ordered. EDID EDMS 07:15 07:07 MAGNESIUM LEVEL+LAB ordered. EDID EDMS 07:23 06:44 Home Meds: amiodarone 100 mg Oral tab 1 tab once daily; [facility] ead 07:35 06:50 CT ANGIO CHEST+CT ordered. EDID EDMS 07:35 06:50 CT ABD & PELVIS WITH CONTRAST+CT ordered. EDID EDMS 09:11 08:19 GALLBLADDER US+US ordered. EDID EDMS 20:38 19:32 LIVER PROFILE ordered. EDID EDMS Attachments: 08:17 [facility] Payment Agreement lg 15:06 T-Sheet-- Draft Copy gb [facility]
[2016-04-12 23:40] VITALS: BP 120/70
[2016-04-13] MEDS: MIRALAX *UNIT DOSE* 17GM PACKET PO PRN ×2 (00:03→11:35)
[2016-04-13] MEDS: NICOTINE 21MG/24HR 1 EA TRANSDERMAL TD SCH ×2 (00:04→08:37)
[2016-04-13 00:48] VITALS: BP 134/73
[2016-04-13] MEDS: AMIODARONE 200 MG TAB (PACERONE) PO SCH ×3 (00:50→20:44)
[2016-04-13] MEDS: METOPROLOL TART 25 MG TABLET PO SCH ×3 (00:50→20:45)
[2016-04-13] MEDS: FUROSEMIDE 40 MG/4 ML VIAL (J1940) IV SCH ×4 (00:51→23:37)
[2016-04-13] MEDS: LEVALBUTEROL 1.25 MG/0.5 ML CONCENTRATE NEB INH PRN ×3 (02:08→20:34)
--- NOTE | 2016-04-13 03:24 | CR ---
DATE OF CONSULTATION: 04/12/2016 REFERRING PROVIDER: Dionicio Everett MD. PRIMARY [employer] FUNCTIONAL ANALYST: Dr. Mayes in [place]. REASON FOR CONSULTATION: Atrial fibrillation, congestive heart failure. HISTORY OF PRESENT ILLNESS: This is a 75-year-old male with a long history of heart disease and recently had aortic valve replacement done by Dr. Landry, via transcatheter aortic valve replacement (TAVR), had been doing well and he stated that he has lost a significant amount of weight and his pedal edema had slowly disappeared since surgery. He came to the hospital early this morning with palpitations and abdominal and pelvic discomfort. He was found to be in atrial fibrillation with a rapid ventricular rate at 146 beats per minute with a blood pressure of 121/70, respirations 24 and his temperature was 98.3 degrees Fahrenheit with an oxygen saturation of 98% on room air. He was admitted for further management and monitoring and cardiology consult was called. When I saw Mr. Say Matute, he was sitting in a chair in the emergency room and he denies any chest pain, but does complain of shortness of breath with activities and lower abdominal and pelvic discomfort. He stated that he has not been able to move his bowels. He does have a history of palpitations and usually he manages to break it off, his atrial fibrillation symptom is paroxysmal in nature. He has a cough, but denies any hemoptysis. He does have some orthopnea. He denies any fever or chills. He has no nausea, vomiting, diarrhea, melena, or hematemesis. There is no focal manifestation. He has a past medical history positive for coronary artery disease with coronary artery bypass graft done about 20 years ago, percutaneous transluminal coronary angioplasty (PTCA)/stent, peripheral artery disease with abdominal aortic aneurysm repair, chronic obstructive pulmonary disease (COPD), and recent aortic valve replacement. He also has a history of hypertension, hyperlipidemia, intolerance to statin. His labs revealed chronic kidney disease. There is no prior history of CVA. He does have underlying diabetes mellitus, on diet. MEDICATION: Prior to coming to the hospital: - Lasix 40 mg twice a day - Xarelto 20 mg by mouth daily - potassium chloride one tablet by mouth daily - amiodarone 100 mg by mouth daily CURRENT MEDICATIONS: - amiodarone 100 mg by mouth daily - aspirin 81 mg by mouth daily - potassium chloride (KCl) 10 mEq by mouth twice a day - senna one tablet by mouth twice a day - Xopenex 0.63 mg every 6 hours as needed for shortness of breath and wheezing - MiraLAX one packet daily as needed for constipation - Xarelto 20 mg by mouth daily - Lasix 40 mg by mouth twice a day - nicotine patch FAMILY HISTORY: Noncontributory. SOCIAL HISTORY: Patient is active smoker. He denies any ethyl alcohol (EtOH) abuse. ALLERGIES: He has allergies to BUDESONIDE, FORMOTEROL and IBUPROFEN, as well as intolerance to STATIN. ADVANCED DIRECTIVES: He is a FULL CODE. PHYSICAL EXAMINATION: Patient is alert and oriented, in no acute distress at rest. His vital signs when I saw him revealed a blood pressure of 121/87 with a pulse of 104, respirations 18, and his temperature is 97.9 degrees Fahrenheit with an oxygen saturation of 96% on room air. Examination of the head, ears, eyes, nose and throat: Atraumatic. Neck is supple with extended jugular. The lungs revealed minimal wheezing and crackles were noted at the bases. The heart examination revealed irregular, irregular heart sounds without gallops. The point of maximal impulse (PMI) is slightly displaced inferiorly. There is no rub. Abdomen is soft and appears to be distended with minimal tenderness noted at the level of the lower quadrant and pelvic area. Bowel sounds active. Extremities are positive for trace to +1 bilateral pitting pedal edema. Neurological examination is negative for focal deficit. LABORATORIES: BMP done today revealed a sodium of 136, potassium 4.1, chloride 97, CO2 31, BUN 31, creatinine 1.7, GFR 41.3, fasting glucose 229, and calcium 9.0. Liver enzymes revealed a total bilirubin of 1.5, direct bilirubin of 0.6, AST 21, ALT 18, alkaline phosphatase 97, total protein 7.7, and albumin 4.1. Serum is 48 and serum lactate is 164. Magnesium is 2.2. Thyroid function tests reveal a TSH of 3.4 and free T4 of 1.59. Lactic acid was 2.0. CBC revealed a WBC of 11, hemoglobin 14.8, hematocrit 45.6, and platelets 290,000. PT is 32.2 with an INR of 3.13 and a PTT of 43.4. Chest x-ray done earlier today revealed mild cardiomegaly and increased interstitial prominence that may be related to chronic fibrotic changes. There is also some manifestation of heart failure. No pleural effusion. Chest CT done earlier today revealed mild cardiomegaly and increased interstitial markings consistent with congestive heart failure and trace right basal pleural effusion. There was a noncalcified 7 mm pulmonary nodule within the right lower lobe, thickened gallbladder wall and intraluminal sludge. There was trace abdominal ascites. Abdominal ultrasound done today revealed granulomatous calcifications in the liver and spleen. No hydronephrosis. IMPRESSION: 1. Atrial fibrillation with uncontrolled ventricular rate. 2. Congestive heart failure, left ventricular function (LVF) is normal. Probably related to underlying atrial fibrillation with a rapid ventricular rate. 3. History of coronary artery disease and percutaneous transluminal coronary angioplasty (PTCA)/stent, as well as coronary artery bypass graft done 20 years ago. 4. History of abdominal aortic aneurysm repair by . 5. History of chronic obstructive pulmonary disease (COPD). 6. Recent aortic valve replacement via transcatheter aortic valve replacement (TAVR). 7. Atrial fibrillation, probably paroxysmal in nature. 8. History of hypertension. 9. History of hyperlipidemia and statin intolerance. Mr. Say Matute seems to be still symptomatic with shortness of breath and uncontrolled atrial fibrillation. I would increase the amiodarone and the beta tiana for now, as well as his diuretics and he will be monitored. He is planning to have an echocardiogram done. It will be arranged and then further recommendation will be given. We will need to monitor closely his BUN and creatinine and serum potassium and if his kidney function deteriorates, we may have to decrease the dose of the Xarelto. Will stay away for now from angiotensin-converting enzyme (SANTIAGO) inhibitor or ARBs. It was a pleasure to participate in the care of Mr. Say Matute for his underlying cardiac condition. I will continue to monitor along with you while in the hospital. Please do not hesitate to call if any question.
[2016-04-13] MEDS ORDERED: LORazepam 2 MG/ML VIAL (J2060) IV ONE (03:45)
[2016-04-13 04:00] VITALS: BP 117/81
[2016-04-13 05:34] LABS: ALBUMIN 3.5 GM/DL (3.2-5.2); ALBUMIN/GLOBULIN RATIO 1.03 (1.00-1.93); BASO % 0.6 % (0.0-1.0); BILIRUBIN,DIRECT 0.7 MG/DL (0.0-0.2); BILIRUBIN,TOTAL 1.8 MG/DL (0.2-1.0); CALCIUM LEVEL 8.5 MG/DL (8.8-10.2); CREATININE FOR GFR 1.8 MG/DL (0.70-1.30); EOS # 0.1 K/mm3 (0.0-0.50); EOS % 1.2 % (0.0-3.0); GLOMERULAR FILTRATION RATE 39.5 (>42); LARGE UNSTAINED CELL # 0.2 K/mm3 (0.0-0.4); LARGE UNSTAINED CELL % 1.7 % (0.0-4.0); LYMPH # 1.5 K/mm3 (1.5-4.5); LYMPH % 16.3 % (24.0-44.0); MEAN CORPUSCULAR HEMOGLOBIN 28.7 pg (27.0-33.0); MEAN CORPUSCULAR HGB CONC 32.5 g/dl (32.0-36.5); MEAN CORPUSCULAR VOLUME 88.4 fl (80.0-96.0); MONO # 0.6 K/mm3 (0.0-0.8); MONO % 6.3 % (0.0-5.0); NEUTROPHILS # 6.8 K/mm3 (1.8-7.7); PLATELET COUNT, AUTOMATED 204 k/mm3 (150-450); POTASSIUM SERUM 4.3 MEQ/L (3.5-5.1); RED CELL DISTRIBUTION WIDTH 13.9 % (11.5-14.5); TOTAL PROTEIN 6.9 GM/DL (6.4-8.2); WHITE BLOOD COUNT 9.2 K/mm3 (4.0-10.0)
[2016-04-13 08:00] VITALS: BP 108/61
--- NOTE | 2016-04-13 08:01 | IPNPDOC ---
Assessment/Plan Date Seen The patient was seen on 04/13/16. Problems Problems: (1) Atrial fibrillation, rapid Status: Acute Response to Treatment: Progressing Discussed With: Maintenance Supervisor, Patient Problem Specific Plan: Consult Specialist, Repeat Tests Problem Text: Amiodarone increased (recently decreased outpatient). Beta blockade. Anticoagulated with NOAC. Cardiology consultation appreciated. Some improvement today. (2) Abdominal pain Status: Acute Problem Text: Imaging unrevealing thus far. Possibly secondary to constipation. Bowel regimen, if no improvement surgical consultation for further assistance. (3) CHF (congestive heart failure) Status: Acute Discussed With: Maintenance Supervisor, Patient Problem Specific Plan: Consult Specialist, Monitor Clinically, Repeat Labs Problem Text: continue diuresis with lasix IV I/O's , daily weights cardiology consultation appreciated. (4) Pulmonary nodule Status: Acute Problem Text: CT chest showed 7 mm pulmonary nodule within the right lower lobe. Follow up CT scan in 3 months. (5) Aortic valve replaced Status: Acute Discussed With: Patient Problem Specific Plan: Consult Specialist, Monitor Clinically Problem Text: Recent TAVR roughly 6 weeks ago, Dr. Landry/[place]. (6) CAD (coronary artery disease) Status: Chronic Discussed With: Patient Problem Specific Plan: Consult Specialist, Monitor Clinically Problem Text: s/p DE, CABG, PCI Plan / VTE VTE Prophylaxis Ordered?: Yes (Xarelto) Subjective Review of Systems CC/HPI The patient is a 75-year-old male admitted with a reason for visit of Abdominal Pain; Atrial Fibrillation, Rapid. General: Denies: Chills, Fatigue, Malaise, Night Sweats, Normal Appetite, Other Symptoms, ROS Unobtainable Constitutional: Denies: Chills, Fatigue, Fever, Lethargy, Malaise, Night Sweats , Other, Weakness, Weight Loss Eyes: Denies: Conjunctivae inflammation, Eyelid inflammation, Other, Pain, Redness, Vision change ENT: Denies: Dysphagia, Ear Pain, Epistaxis, Head Aches, Other Symptoms, Post Nasal Drip, Sinus Congestion, Sore Throat Skin: Denies: Breakdown, Bruising, Dry, Itching, Jaundice, Lesions, Nail Changes, Other, Rash Pulmonary: Denies: Cough, Dyspnea, Other Symptoms, Pleuritic Chest Pain Cardiovascular: Denies: Chest Pain, Edema, Lt Headedness, Orthopnea, Other Symptoms, Palpitations, Paroxysmal Noc. Dyspnea Gastrointestinal: Reports: Constipation, Denies: Abdominal Pain, Diarrhea, Hematochezia, Melena, Nausea, Other Symptoms, Vomiting Objective Physical Examination General Exam: Positive: Alert, Cooperative, No Acute Distress Eye Exam: Positive: PERRLA ENT Exam: Positive: Atraumatic, Mucous membr. moist/pink, Other ENT (edentulous ) Neck Exam: Positive: Supple, Negative: JVD, Lymphadenopathy Chest Exam: Positive: Clear to auscultation, Normal air movement, Negative: Rales, Rhonchi, Wheezing Heart Exam: Positive: Irregular Rhythm, Normal S1, Normal S2, Tachycardic, Negative: Gallops, Murmurs, Rubs Telemetry: Positive: Atrial fibrillation Abdomen Exam: Positive: Normal bowel sounds, Other (Negative Valadez's sign. Negative Psoas test.), Tenderness, Negative: Mass, Soft Extremity Exam: Negative: Clubbing, Cyanosis, Edema Neuro Exam: Positive: Cranial Nerves 3-12 NL, Sensation Intact, Strength at 5/ 5 X4 ext Psych Exam: Positive: Oriented x 3 Vital Signs/I&O Vital Signs Date Time Temp Pulse Resp B/P Pulse Ox O2 Delivery O2 Flow Rate FiO2 04/13/16 04:00 97.8 88 20 117/81 100 Room Air I&O- Last 24 Hours up to 6 AM 04/13/16 05:59 Intake Total 830 ml Output Total 150 ml Balance 680 ml Laboratory Data Labs 24H Laboratory Tests 2 04/12/16 13:02: Creatine Kinase MB 4.1H, Creatine Kinase MB Relative Index 3.38, Total Creatine Kinase 121, Troponin I 0.06# 04/13/16 05:02: Aspartate Amino Transf (AST/SGOT) 22, Alanine Aminotransferase (ALT/SGPT) 17, Alkaline Phosphatase 88, Total Bilirubin 1.8H, Direct Bilirubin 0.7H, Albumin 3.5, Albumin/Globulin Ratio 1.03, Anion Gap 8, White Blood Count 9.2, Red Blood Count 4.83, Hemoglobin 13.9L, Hematocrit 42.7, Mean Corpuscular Volume 88.4, Mean Corpuscular Hemoglobin 28.7, Mean Corpuscular Hemoglobin Concent 32.5, Red Cell Distribution Width 13.9, Platelet Count 204, Neutrophils (%) (Auto) 74.0H, Lymphocytes (%) (Auto) 16.3L, Monocytes (%) (Auto) 6.3H, Eosinophils (%) (Auto) 1.2, Basophils (%) (Auto) 0.6, Neutrophils # (Auto) 6.8, Lymphocytes # (Auto) 1.5, Monocytes # (Auto) 0.6, Eosinophils # (Auto) 0.1, Basophils # (Auto) 0.0, Calcium Level 8.5L, Glomerular Filtration Rate 39.5L, Large Unclassified Cells # 0.2, Large Unclassified Cells % 1.7, Total Protein 6.9 CBC/BMP Laboratory Tests 04/13/16 05:02 Red Blood Count 4.83, Mean Corpuscular Volume 88.4, Mean Corpuscular Hemoglobin 28.7, Mean Corpuscular Hemoglobin Concent 32.5, Red Cell Distribution Width 13.9 , Neutrophils (%) (Auto) 74.0 H, Lymphocytes (%) (Auto) 16.3 L, Monocytes (%) ( Auto) 6.3 H, Eosinophils (%) (Auto) 1.2, Basophils (%) (Auto) 0.6, Neutrophils # (Auto) 6.8, Lymphocytes # (Auto) 1.5, Monocytes # (Auto) 0.6, Eosinophils # ( Auto) 0.1, Basophils # (Auto) 0.0 Microbiology Microbiology 04/12/16 MRSA Screen, Received Pending MERCEDES GUADARRAMA MD Apr 13, 2016 08:01
[2016-04-13] MEDS: SENOKOT S TAB PO SCH ×2 (08:35→20:44)
[2016-04-13] MEDS: POTASSIUM CHLORIDE 10 MEQ SR TABLET PO SCH ×2 (08:35→20:44)
[2016-04-13] MEDS: ASPIRIN 81 MG ENTERIC TAB PO SCH (08:36)
[2016-04-13] MEDS ORDERED: AMIODARONE 100MG TABLET (PACERONE) PO SCH (09:00)
--- NOTE | 2016-04-13 10:23 | IPNPDOC ---
[facility] Cardiology Progress Note Date of Service/Time The patient was seen on 04/13/16 at 10:06. Cardiology Progress Note Mr Matute is a 75 y/o male who initially presented with complaints of rapid heart rate and abdominal/pelvic pain and was found to be in atrial fibrillation in the emergency department. OBJECTIVE: PHYSICAL EXAMINATION: VITAL SIGNS: Please see below. GENERAL APPEARANCE: Appears comfortable, laying in bed at a slight incline, conversant HEENT: NCAT, moist mucus membranes, EOMI, nares patent b/l LUNGS: diminished breath sounds in lower bases, CTA otherwise, no wheezing, rhonchi or rales otherwise appreciated HEART: rate in the 90's, irregularly irregular, normal s1 and s2, no murmur, gallop or rub appreciated ABDOMEN: appears slightly distended, obese, hepatomegaly appreciated, NABSx4, tender in RUQ to light palpitation SKIN: intact EXTREMITIES: no swelling, cyanosis appreciated NEUROLOGICAL: no focal deficit appreciated PSYCHIATRIC: normal affect and mood LABORATORY WORK: Please see below. ASSESSMENT AND PLAN: Mr. Matute seemed to be doing well today. He states that he is still occasionally SOB but denies chest pain or palpitations. On exam he does have impressive elevation in JVP along with hepatomegaly which is stigmata for right heart failure. He admitted to sharp pelvic pain one day ago but states that this doesn't bother him any more, except on physical exam when he was tender to deep palpation of the RUQ. He admits that he under went cardiac catheterization some time ago and that it was positive for blockage. His EKG's showed possible atrial flutter, but we will repeat EKG today for comparison. He is status post aortic valve replacement via TAVR about 6 weeks ago. His heart rate seems to be stable now, hovering in the 90's. Would suggest continuing high dose Amiodarone therapy and Lopressor. Patient is currently anticoagulated on Xarelto, would continue to diuresis him and monitor his kidney function as his BUN/CR have increased today from 31 to 38 and 1.73 to 1.80 respectively, his potassium is good today at 4.3. He was net positive 480 mL over the past 24 hours and weight today is 86.9 kg. ECHO report is still pending. No further adjustment recommendations at this time. Vital Signs/I&O VS/I&O Vital Signs Date Time Temp Pulse Resp B/P Pulse Ox O2 Delivery O2 Flow Rate FiO2 04/13/16 08:51 116 19 04/13/16 08:36 108/61 04/13/16 08:00 97.1 97 Room Air I&O- Last 24 Hours up to 6 AM 04/13/16 06:00 Intake Total 930 ml Output Total 380 ml Balance 550 ml Laboratory Data 24H LABS Laboratory Tests 2 04/12/16 13:02: Creatine Kinase MB 4.1H, Creatine Kinase MB Relative Index 3.38, Total Creatine Kinase 121, Troponin I 0.06# 04/13/16 05:02: Aspartate Amino Transf (AST/SGOT) 22, Alanine Aminotransferase (ALT/SGPT) 17, Alkaline Phosphatase 88, Total Bilirubin 1.8H, Direct Bilirubin 0.7H, Albumin 3.5, Albumin/Globulin Ratio 1.03, Anion Gap 8, White Blood Count 9.2, Red Blood Count 4.83, Hemoglobin 13.9L, Hematocrit 42.7, Mean Corpuscular Volume 88.4, Mean Corpuscular Hemoglobin 28.7, Mean Corpuscular Hemoglobin Concent 32.5, Red Cell Distribution Width 13.9, Platelet Count 204, Neutrophils (%) (Auto) 74.0H, Lymphocytes (%) (Auto) 16.3L, Monocytes (%) (Auto) 6.3H, Eosinophils (%) (Auto) 1.2, Basophils (%) (Auto) 0.6, Neutrophils # (Auto) 6.8, Lymphocytes # (Auto) 1.5, Monocytes # (Auto) 0.6, Eosinophils # (Auto) 0.1, Basophils # (Auto) 0.0, Calcium Level 8.5L, Glomerular Filtration Rate 39.5L, Large Unclassified Cells # 0.2, Large Unclassified Cells % 1.7, Total Protein 6.9 CBC/BMP Laboratory Tests 04/13/16 05:02 Red Blood Count 4.83, Mean Corpuscular Volume 88.4, Mean Corpuscular Hemoglobin 28.7, Mean Corpuscular Hemoglobin Concent 32.5, Red Cell Distribution Width 13.9 , Neutrophils (%) (Auto) 74.0 H, Lymphocytes (%) (Auto) 16.3 L, Monocytes (%) ( Auto) 6.3 H, Eosinophils (%) (Auto) 1.2, Basophils (%) (Auto) 0.6, Neutrophils # (Auto) 6.8, Lymphocytes # (Auto) 1.5, Monocytes # (Auto) 0.6, Eosinophils # ( Auto) 0.1, Basophils # (Auto) 0.0 Microbiology Microbiology 04/12/16 MRSA Screen, Received Pending GME ATTESTATION GME ATTESTATION My preceptor for this patient encounter was physically present in the building during the encounter and was fully available. As needed, all aspects of the patient interview, examination, medical decision making process, and medical care plan development were reviewed and approved by the preceptor. Preceptor is aware and concurs with the plan as stated in the body of this note and will attest to such by his/her cosignature. DORIS PINK DO Apr 13, 2016 10:23
[2016-04-13 12:00] VITALS: BP 114/63
--- NOTE | 2016-04-13 13:33 | ECGEPIP ---
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
[2016-04-13] MEDS ORDERED: FLEET ENEMA PR ONE (15:15)
[2016-04-13 16:00] VITALS: BP 139/84
[2016-04-13] MEDS: RIVAROXABAN 20 MG TAB (XARELTO) PO SCH (17:37)
[2016-04-13 20:00] VITALS: BP 112/70
[2016-04-14] VITALS (7 sets, daily range): BP systolic 109–147; BP diastolic 67–86
[2016-04-14 05:17] LABS: BASO % 0.4 % (0.0-1.0); EOS # 0.1 K/mm3 (0.0-0.50); EOS % 1.2 % (0.0-3.0); LARGE UNSTAINED CELL # 0.2 K/mm3 (0.0-0.4); LARGE UNSTAINED CELL % 1.7 % (0.0-4.0); LYMPH % 19.4 % (24.0-44.0); MEAN CORPUSCULAR HEMOGLOBIN 29.1 pg (27.0-33.0); MEAN CORPUSCULAR HGB CONC 33.1 g/dl (32.0-36.5); MEAN CORPUSCULAR VOLUME 87.8 fl (80.0-96.0); MONO # 0.6 K/mm3 (0.0-0.8); MONO % 6.2 % (0.0-5.0); NEUTROPHILS # 7.2 K/mm3 (1.8-7.7); NEUTROPHILS % 71.1 % (36.0-66.0); PLATELET COUNT, AUTOMATED 244 k/mm3 (150-450); WHITE BLOOD COUNT 10.1 K/mm3 (4.0-10.0)
[2016-04-14 05:29] LABS: CALCIUM LEVEL 8.8 MG/DL (8.8-10.2); CREATININE FOR GFR 1.79 MG/DL (0.70-1.30); GLOMERULAR FILTRATION RATE 39.7 (>42)
--- NOTE | 2016-04-14 07:29 | IPNPDOC ---
Assessment/Plan Date Seen The patient was seen on 04/14/16. Problems Problems: (1) Atrial fibrillation, rapid Status: Acute Response to Treatment: Progressing Discussed With: Knot Cutter, Patient Problem Specific Plan: Consult Specialist, Repeat Tests Problem Text: Amiodarone increased (recently decreased outpatient). Beta blockade. Anticoagulated with NOAC. Cardiology consultation appreciated. Relatively normocardic. (2) Abdominal pain Status: Resolved Discussed With: Patient Problem Text: Appears to have been secondary to constipation. Responded well to fleet enema. (3) CHF (congestive heart failure) Status: Acute Response to Treatment: Compensated Discussed With: Knot Cutter, Patient Problem Specific Plan: Consult Specialist, Monitor Clinically, Repeat Labs Problem Text: Still receiving IV lasix. Discuss with cardio likely transition to PO today or tomorrow. I/O's , daily weights. cardiology consultation appreciated. Echo pending. (4) Pulmonary nodule Status: Acute Problem Text: CT chest showed 7 mm pulmonary nodule within the right lower lobe. Follow up CT scan in 3 months. (5) Aortic valve replaced Status: Acute Discussed With: Patient Problem Specific Plan: Consult Specialist, Monitor Clinically Problem Text: Recent TAVR roughly 6 weeks ago, Dr. Landry/[place]. To receive medical records from his office, and Dr. Mayes/. (6) CAD (coronary artery disease) Status: Chronic Discussed With: Patient Problem Specific Plan: Consult Specialist, Monitor Clinically Problem Text: s/p PR, CABG, PCI Plan / VTE VTE Prophylaxis Ordered?: Yes (Xarelto) Plan Diet: Continue Current Activity: Continue Current Therapy: PT Medications: Change to PO Diagnostics: Repeat Labs in AM, TTE Anticipated Discharge: Home, Home With Services Subjective Review of Systems CC/HPI The patient is a 75-year-old male admitted with a reason for visit of Abdominal Pain; Atrial Fibrillation, Rapid. General: Denies: Chills, Fatigue, Malaise, Night Sweats, Normal Appetite, Other Symptoms, ROS Unobtainable Constitutional: Denies: Chills, Fatigue, Fever, Lethargy, Malaise, Night Sweats , Other, Weakness, Weight Loss Eyes: Denies: Conjunctivae inflammation, Eyelid inflammation, Other, Pain, Redness, Vision change ENT: Denies: Dysphagia, Ear Pain, Epistaxis, Head Aches, Other Symptoms, Post Nasal Drip, Sinus Congestion, Sore Throat Skin: Denies: Breakdown, Bruising, Dry, Itching, Jaundice, Lesions, Nail Changes, Other, Rash Pulmonary: Denies: Cough, Dyspnea, Other Symptoms, Pleuritic Chest Pain Cardiovascular: Denies: Chest Pain, Edema, Lt Headedness, Orthopnea, Other Symptoms, Palpitations, Paroxysmal Noc. Dyspnea Gastrointestinal: Denies: Abdominal Pain, Constipation, Diarrhea, Hematochezia , Melena, Nausea, Other Symptoms, Vomiting Objective Physical Examination General Exam: Positive: Alert, Cooperative, No Acute Distress Eye Exam: Positive: PERRLA ENT Exam: Positive: Atraumatic, Mucous membr. moist/pink, Other ENT (edentulous ) Neck Exam: Positive: Supple, Negative: JVD, Lymphadenopathy Chest Exam: Positive: Clear to auscultation, Normal air movement, Negative: Rales, Rhonchi, Wheezing Heart Exam: Positive: Irregular Rhythm, Normal S1, Normal S2, Rate Normal, Negative: Gallops, Murmurs, Rubs Telemetry: Positive: Atrial fibrillation Abdomen Exam: Positive: Normal bowel sounds, Other (Negative Valadez's sign. Negative Psoas test.), Tenderness, Negative: Mass, Soft Extremity Exam: Negative: Clubbing, Cyanosis, Edema Neuro Exam: Positive: Cranial Nerves 3-12 NL, Sensation Intact, Strength at 5/ 5 X4 ext Psych Exam: Positive: Oriented x 3 Vital Signs/I&O Vital Signs Date Time Temp Pulse Resp B/P Pulse Ox O2 Delivery O2 Flow Rate FiO2 04/14/16 04:00 96.6 95 20 130/86 96 Room Air I&O- Last 24 Hours up to 6 AM 04/14/16 06:00 Intake Total 1205 ml Output Total 950 ml Balance 255 ml Laboratory Data Labs 24H Laboratory Tests 2 04/14/16 02:00: Urine Amorphous Sediment SMALLH, Urine Appearance HAZY, Urine Color YELLOW, Urine pH 6.0, Urine Specific [place] 1.010, Urine Protein NEGATIVE, Urine Glucose (UA) NEGATIVE, Urine Ketones NEGATIVE, Urine Urobilinogen 4.0H, Urine Bilirubin NEGATIVE, Urine Leukocyte Esterase NEGATIVE, Urine Bacteria (Auto) 1+H , Urine Blood NEGATIVE, Urine Calcium Carbonate Cryst(Auto) , Urine Calcium Oxalate Cryst (Auto) , Urine Calcium Phosphate Amy (Auto) , Urine Cellular Casts , Urine Cystine Crystals , Urine Granular Casts (Auto) , Urine Hyaline Casts (Auto) 6, Urine Leucine Crystals , Urine Mucus (Auto) SMALL, Urine Nitrite NEGATIVE, Urine Oval Fat Bodies (Auto) , Urine RBC (Auto) 3, Urine Renal Epithelial Cells , Urine Sperm (Auto) , Urine Squamous Epithelial Cells 1 , Urine Transitional Epithelial Cells , Urine Trichomonas (Auto) , Urine Triple Phosphate Cryst (Auto) , Urine Tyrosine Crystals , Urine Uric Acid Crystals ( Auto) , Urine WBC (Auto) 2, Urine Waxy Casts (Auto) , Urine Yeast-Like Cells ( Auto) 04/14/16 04:57: Anion Gap 9, White Blood Count 10.1H, Red Blood Count 4.95, Hemoglobin 14.4, Hematocrit 43.4, Mean Corpuscular Volume 87.8, Mean Corpuscular Hemoglobin 29.1 , Mean Corpuscular Hemoglobin Concent 33.1, Red Cell Distribution Width 14.0, Platelet Count 244, Neutrophils (%) (Auto) 71.1H, Lymphocytes (%) (Auto) 19.4L, Monocytes (%) (Auto) 6.2H, Eosinophils (%) (Auto) 1.2, Basophils (%) (Auto) 0.4 , Neutrophils # (Auto) 7.2, Lymphocytes # (Auto) 2.0, Monocytes # (Auto) 0.6, Eosinophils # (Auto) 0.1, Basophils # (Auto) 0.0, Blood Urea Nitrogen 47H, Creatinine 1.79H, Sodium Level 134L, Potassium Level 4.0, Chloride Level 95L, Carbon Dioxide Level 30, Calcium Level 8.8, Glomerular Filtration Rate 39.7L, Large Unclassified Cells # 0.2, Large Unclassified Cells % 1.7 CBC/BMP Laboratory Tests 04/14/16 04:57 Calcium Level 8.8, Red Blood Count 4.95, Mean Corpuscular Volume 87.8, Mean Corpuscular Hemoglobin 29.1, Mean Corpuscular Hemoglobin Concent 33.1, Red Cell Distribution Width 14.0, Neutrophils (%) (Auto) 71.1 H, Lymphocytes (%) (Auto) 19.4 L, Monocytes (%) (Auto) 6.2 H, Eosinophils (%) (Auto) 1.2, Basophils (%) ( Auto) 0.4, Neutrophils # (Auto) 7.2, Lymphocytes # (Auto) 2.0, Monocytes # (Auto ) 0.6, Eosinophils # (Auto) 0.1, Basophils # (Auto) 0.0 Microbiology Microbiology 04/12/16 MRSA Screen, Received Pending 04/14/16 Urine Culture, Received Pending MERCEDES GUADARRAMA MD Apr 14, 2016 07:29
--- NOTE | 2016-04-14 08:23 | ECGEPIP ---
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 PVCs LBBB PRWP Electronically Signed On 04-14-2016 8:23:02 EST by Didier Gimenez
--- NOTE | 2016-04-14 08:25 | ECGEPIP ---
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
[2016-04-14] MEDS: ASPIRIN 81 MG ENTERIC TAB PO SCH (09:37)
[2016-04-14] MEDS: POTASSIUM CHLORIDE 10 MEQ SR TABLET PO SCH ×2 (09:38→20:16)
[2016-04-14] MEDS: AMIODARONE 200 MG TAB (PACERONE) PO SCH ×2 (09:38→20:16)
[2016-04-14] MEDS: METOPROLOL TART 25 MG TABLET PO SCH ×2 (09:38→20:17)
[2016-04-14] MEDS: SENOKOT S TAB PO SCH ×2 (09:38→20:16)
[2016-04-14] MEDS: FUROSEMIDE 40 MG/4 ML VIAL (J1940) IV SCH ×2 (09:39→20:18)
[2016-04-14] MEDS: NICOTINE 21MG/24HR 1 EA TRANSDERMAL TD SCH (09:40)
[2016-04-14] MEDS: MIRALAX *UNIT DOSE* 17GM PACKET PO PRN (09:47)
[2016-04-14] MEDS: LEVALBUTEROL 1.25 MG/0.5 ML CONCENTRATE NEB INH PRN ×3 (12:55→23:32)
[2016-04-14] MEDS: RIVAROXABAN 20 MG TAB (XARELTO) PO SCH (18:17)
[2016-04-14] MEDS: **hydrALAZINE** 10 MG TAB PO SCH (21:00)
[2016-04-15] VITALS: BP 118/74
--- NOTE | 2016-04-15 00:34 | EDDOCDS ---
Nurse's Notes [facility] Name: Say Matute Age: 75 yrs Sex: Male : 1940 Arrival Date: 04/12/2016 Time: 06:26 Bed Admit Hold Private MD: Diagnosis: Atrial fibrillation and flutter;Abdominal and pelvic pain-rule out left renal mass, rule out gallbladder sludge Presentation: 04/12 06:33 Presenting complaint:. [facility] 06:33 Presenting complaint:. [facility] 06:36 Presenting complaint: Patient states: Racing pulse for about four days, now pain in [facility] stomach. 06:36 Acuity: BAMBI Level 2 [facility] 06:40 Adult Sepsis Screening: The patient does not have new or worsening altered mentation. [facility] Patient has a respiratory rate of greater than or equal to 22 (1 point). Systolic blood pressure is greater than 100. Patient has a qSOFA score of 1- Negative Sepsis Screen. Suicide/Homicide risk assessment- the patient denies having any suicidal and/or homicidal ideations and does not present with any other emotional, behavioral or mental health complaints. 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 Transition of care: patient was not received from another setting of care. 06:40 Method Of Arrival: Walkin/Carried/Asstd [facility] Triage Assessment: 06:44 General: Appears in no apparent distress, comfortable, Behavior is appropriate for age, [facility] cooperative. Pain: Location: abdomen Pain currently is 0 out of 10 on a pain scale. At worst was 5 out of 10 on a pain scale. The patient is triaged at the bedside. See Assessment in Nurses Notes section of ED record. Neurological: Level of Consciousness is awake, alert, Oriented to person, place, time. Respiratory: Airway is patent Respiratory effort is even, labored, Respiratory pattern is regular, symmetrical. Derm: Skin is pink, warm & dry. Musculoskeletal: Range of motion intact in all extremities. Historical: - Allergies: no known allergies; - Home Meds: 1. Lasix 40 mg Oral tab 1 tab 2 times per day (Last dose: 04/11/2016) 2. Xarelto 20 mg oral tab 1 tab once daily 3. Potassium Chloride Unknown Oral 1 cap 2 times per day 4. amiodarone 100 mg Oral tab 1 tab once daily (Last dose: 04/12/2016 05:00) - PMHx: CAD; COPD; - PSHx: CABG (2003); Stents, Coronary; AAA Repair; heart valve replacement; - Social history: Smoking status: Patient uses tobacco products, heavy tobacco smoker. No barriers to communication noted. - Family history: Not pertinent. - : The pt / caregiver states he / she is on anticoagulants: Xarelto Home medication list is obtained from the patient. - Exposure Risk Screening:: None identified. Assessment: 06:53 General: Appears in no apparent distress, comfortable, Behavior is appropriate for age, nn1 cooperative. Pain: Location: right lower quadrant and left lower quadrant Pain currently is 5 out of 10 on a pain scale. Cardiovascular: Capillary refill < 3 seconds Heart tones S1 S2 present Rhythm is atrial fibrillation Chest pain is denied. Respiratory: Airway is patent Respiratory effort is even, unlabored, Respiratory pattern is regular, symmetrical. GI: Abdomen is non- distended Bowel sounds present X 4 quads. Derm: Skin is normal. 07:30 General: Appears in no apparent distress, comfortable, Behavior is appropriate for age, ead cooperative, pleasant, Orders received for new medications. Dr. Andujar updated of pt's heart rate now maintaining between 60-120. Medication orders currently on hold. Will continue to monitor pt. Pt's family at bedside and updated on care plan. . Neurological: Level of Consciousness is awake, alert, obeys commands, Oriented to person, place, time. Respiratory: Airway is patent Respiratory effort is even, unlabored. Derm: Skin is pink, warm & dry. 08:13 Adult Sepsis Screening: The patient does not have new or worsening altered mentation. ead Patient has a respiratory rate of greater than or equal to 22 (1 point). Systolic blood pressure is greater than 100. Patient has a qSOFA score of 1- Negative Sepsis Screen. 08:30 General: Appears in no apparent distress, comfortable, Behavior is appropriate for age, ead cooperative. Neurological: No deficits noted. Cardiovascular: Rhythm is atrial fibrillation Chest pain is denied. Respiratory: Airway is patent Respiratory effort is even, unlabored. Derm: Skin is pink, warm & dry. 09:30 General: Appears in no apparent distress, comfortable, Behavior is appropriate for age, ead cooperative. Pain: Denies pain. Neurological: No deficits noted. Cardiovascular: Rhythm is atrial fibrillation. Respiratory: Airway is patent Respiratory effort is even, unlabored, Denies shortness of breath. Derm: Skin is pink, warm & dry. 10:30 General: Appears in no apparent distress, comfortable, Behavior is appropriate for age, ead cooperative. Neurological: No deficits noted. Cardiovascular: Rhythm is atrial fibrillation. Respiratory: Airway is patent Respiratory effort is even, unlabored. Derm: Skin is pink, warm & dry. 11:30 General: Appears in no apparent distress, comfortable, Behavior is appropriate for age, ead cooperative. Pain: Denies pain. Neurological: No deficits noted. Cardiovascular: Rhythm is atrial fibrillation Chest pain is denied. Respiratory: Airway is patent Respiratory effort is even, unlabored. Derm: Skin is pink, warm & dry. 12:00 General: pt provided with portable DVD player and dvd to watch due to no tv in room. Pt ead updated on wait for admission bed assignment. . Cardiovascular: Rhythm is atrial fibrillation. Respiratory: Airway is patent Respiratory effort is even, unlabored. Derm: Skin is pink, warm & dry. 12:30 General: Appears in no apparent distress, comfortable, Behavior is appropriate for age, ead cooperative. Neurological: No deficits noted. Cardiovascular: Rhythm is atrial fibrillation. Respiratory: Airway is patent Respiratory effort is even, unlabored. Derm: Skin is pink, warm & dry. 13:30 General: Appears in no apparent distress, comfortable. Cardiovascular: Rhythm is atrial ead fibrillation. Respiratory: Airway is patent Respiratory effort is even, unlabored. Derm: Skin is pink, warm & dry. 14:30 General: Appears in no apparent distress, comfortable, Behavior is appropriate for age, ead cooperative. Neurological: No deficits noted. Cardiovascular: Capillary refill < 3 seconds Rhythm is atrial fibrillation Chest pain is denied. Respiratory: Airway is patent Respiratory effort is even, unlabored. Derm: Skin is pink, warm & dry. 15:30 General: Appears in no apparent distress, comfortable, Behavior is appropriate for age, ead cooperative, pleasant. Neurological: No deficits noted. Cardiovascular: Rhythm is atrial fibrillation. Respiratory: Airway is patent Respiratory effort is even, unlabored. Derm: Skin is pink, warm & dry. Vital Signs: 06:44 BP 121 / 70; Pulse 146; Resp 24; Temp 98.6; Pulse Ox 95% ; Weight 84.82 kg; Height 5 cjh ft. 8 in. (172.72 cm); Pain 510; 07:18 BP 114 / 58 (auto/); ead 07:18 Pulse 116 MON; Pulse Ox 96% ; ead 07:30 BP 108 / 59 (auto/); ead 07:30 Pulse 106 MON; Pulse Ox 96% ; ead 07:45 BP 102 / 69 (auto/); ead 07:52 Pulse 123 MON; Pulse Ox 98% ; ead 08:00 BP 113 / 72 (auto/); ead 08:00 Pulse 106 MON; Pulse Ox 96% ; ead 08:08 Pulse 92 MON; Resp 22; Pulse Ox 96% ; ead 08:15 BP 112 / 71 (auto/); ead 08:15 Pulse 113 MON; Pulse Ox 97% ; ead 08:30 BP 107 / 70 (auto/); ead 08:30 Pulse 106 MON; Pulse Ox 96% ; ead 08:45 BP 110 / 78 (auto/); ead 08:46 Pulse 102 MON; Pulse Ox 96% ; ead 09:00 BP 136 / 86 (auto/); ead 09:01 Pulse 112 MON; Pulse Ox 96% ; ead 09:15 BP 99 / 53 (auto/); ead 09:16 Pulse 107 MON; Resp 18; Pulse Ox 95% on R/A; ead 09:30 BP 106 / 79 (auto/); ead 09:30 Pulse 103 MON; Pulse Ox 96% ; ead 09:45 BP 105 / 75 (auto/); ead 09:45 Pulse 101 MON; Pulse Ox 97% ; ead 10:00 BP 113 / 84 (auto/); ead 10:00 Pulse 99 MON; Pulse Ox 97% ; ead 10:15 BP 126 / 81 (auto/); ead 10:15 Pulse 107 MON; Pulse Ox 96% ; ead 10:30 BP 113 / 76 (auto/); ead 10:30 Pulse 106 MON; Pulse Ox 97% ; ead 10:39 Pulse 107 MON; Resp 18; Pulse Ox 95% on R/A; ead 10:45 BP 110 / 84 (auto/); ead 10:45 Pulse Ox 96% ; ead 11:00 BP 100 / 71 (auto/); ead 11:14 Pulse 94 MON; Resp 18; Pulse Ox 97% on R/A; ead 11:15 BP 112 / 85 (auto/); ead 11:15 Pulse 86 MON; Pulse Ox 97% ; ead 11:30 BP 113 / 89 (auto/); ead 11:30 Pulse 106 MON; Pulse Ox 96% ; ead 11:45 BP 118 / 99 (auto/); ead 11:45 Pulse 121 MON; Pulse Ox 96% ; ead 12:00 BP 127 / 104 (auto/); ead 12:00 Pulse 106 MON; Pulse Ox 95% ; ead 12:17 BP 127 / 82 (auto/); ead 12:17 Pulse 100 MON; Pulse Ox 89% ; ead 12:30 BP 110 / 64 (auto/); ead 12:30 Pulse 104 MON; Pulse Ox 97% ; ead 12:45 BP 112 / 58 (auto/); ead 12:45 Pulse 89 MON; Resp 18; Pulse Ox 97% on R/A; ead 13:15 BP 137 / 85 (auto/); ead 13:15 Pulse 122 MON; Pulse Ox 98% ; ead 13:27 Pulse 105 MON; Resp 18; Pulse Ox 96% on R/A; Pain 0/10; ead 13:45 BP 119 / 73 (auto/); ead 13:45 Pulse 100 MON; Pulse Ox 94% ; ead 14:00 BP 122 / 86 (auto/); ead 14:00 Pulse 110 MON; Pulse Ox 97% ; ead 14:15 BP 110 / 84 (auto/); ead 14:15 Pulse 105 MON; Pulse Ox 96% ; ead 14:40 BP 116 / 72 (auto/); ead 14:40 Pulse 119 MON; Pulse Ox 96% ; ead 16:02 Pulse 112 MON; Resp 18; Pulse Ox 98% on R/A; ead 06:44 Body Mass Index 28.43 (84.82 kg, 172.72 cm) [facility] Vitals: 06:50 Log In Time: April 12, 2016 at 06:26. [facility] ED Course: 06:27 Patient visited by Mimi Harris. gjb 06:27 Patient moved to Waiting gjb 06:33 Patient moved to 18 [facility] 06:37 Triage Initiated [facility] 06:38 Patient moved to 2 [facility] 06:40 Juliana French MD is Attending Physician. fg 06:40 Patient visited by Juliana French MD. fg 06:49 Patient visited by Brsieida Cassidy PCA. ls3 06:49 EKG done. (by ED staff). Reviewed by Juliana French MD. ls3 06:54 product management analyst on. Pulse ox on. NIBP on. nn1 06:54 Inserted saline lock: 20 gauge in right antecubital area and blood collected. The nn1 patient tolerated the procedure well. 07:00 Teresa Olmedo RN is Primary Nurse. ead 07:01 Report received from Madhuri Lund RN. ead 07:03 Attending Physician role handed off by Juliana French MD ml 07:03 Ashley Qureshi MD is Attending Physician. ml 07:13 Liver Profile Sent. ead 07:13 Amylase Sent. ead 07:13 Lipase Sent. ead 07:29 Patient visited by Teresa Olmedo RN. ead 07:29 Lactic Acid (Andujar tube on ice) Sent. ead 07:29 Type & Screen Sent. ead 07:41 Patient visited by Pauline Cobb PCA. jlf 07:41 EKG done. (by ED staff). Reviewed by Ashley Qureshi MD. jlf 07:42 Patient visited by Pauline Cobb PCA. jlf 08:12 Patient visited by Teresa Olmedo RN. ead 08:17 Patient name changed from Say\S\\S\Juju\S\ to Say\S\ \S\Juju. EDMS 08:17 [facility] Payment Agreement was scanned into [employer] and attached to record. lg 08:39 Patient moved to Ultrasound sm5 08:49 CT ABD & PELVIS W/O CONTRAST Returned. EDMS 08:49 portable chest Returned. EDMS 08:50 CT Chest without contrast Returned. EDMS 09:16 The patient / caregiver is instructed regarding the plan of care and ED course. Patient ead has correct armband on for positive identification. Placed in gown. Bed in low position. Call light in reach. Side rails up X 1. Adult w/ patient. 09:16 No procedures done that require assistance. ead 09:24 Patient moved to 2 sm5 09:43 Patient visited by Pauline Cobb PCA. jlf 10:03 Dionicio Everett is Hospitalizing Provider. ml 10:32 US Abd complete Returned. EDMS 15:06 T-Sheet-- Draft Copy was scanned into [employer] and attached to record. gb 16:29 Patient moved to 21 ead 17:15 Patient moved to Admit Hold [facility] 22:57 Primary Nurse role handed off by Teresa Olmedo RN rs6 04/14 13:39 Trend VS was scanned into [employer] and attached to record. gb Administered Medications: 04/12 06:53 Drug: Aspirin 324 mg [aspirin 81 mg chewable tablet (4 tabs)] Route: PO; nn1 16:27 Not Given (change in pt status, aware): amiodarone 150 mg IVP once ead 16:27 Not Given (change in pt status, aware): Metoprolol 5 mg IVP every 15 minutes; Hold ead if SBP < 100mmHg or HR < 60bpm x3 Attachments: 04/14 13:39 Trend VS gb Order Results: Lab Order: B-Type Natiuretic Peptide; SPEC'M 04/12/16 06:46 Test: BRAIN NATRIURETIC PEPTIDE; Value: 598; Range: <100; Abnormal: Above high normal; Units: PG/ML; Status: F Lab Order: Basic Metabolic Profile; SPEC'M 04/12/16 06:46 Test: GLUCOSE, FASTING; Value: 229; Range: 83-110; Abnormal: Above high normal; Units: MG/DL; Status: F Test: BLOOD UREA NITROGEN; Value: 31; Range: 7-18; Abnormal: Above high normal; Units: MG/DL; Status: F Test: CREATININE FOR GFR; Value: 1.73; Range: 0.70-1.30; Abnormal: Above high normal; Units: MG/DL; Status: F Test: GLOMERULAR FILTRATION RATE; Value: 41.3; Range: >42; Abnormal: Below low normal; Status: F Test: SODIUM LEVEL; Value: 136; Range: 136-145; Units: MEQ/L; Status: F Test: POTASSIUM SERUM; Value: 4.1; Range: 3.5-5.1; Units: MEQ/L; Status: F Test: CHLORIDE LEVEL; Value: 97; Range: 98-107; Abnormal: Below low normal; Units: MEQ/L; Status: F Test: CARBON DIOXIDE LEVEL; Value: 31; Range: 21-32; Units: MEQ/L; Status: F Test: ANION GAP; Value: 8; Range: 8-16; Units: MEQ/L; Status: F Test: CALCIUM LEVEL; Value: 9.0; Range: 8.8-10.2; Units: MG/DL; Status: F Test Note: ; Units are mL/min/1.73 m2 Chronic Kidney Disease Staging per NKF: Stage I & II GFR >=60 Normal to Mildly Decreased Stage III GFR 30-59 Moderately Decreased Stage IV GFR 15-29 Severely Decreased Stage V GFR <15 Very Little GFR Left ESRD GFR <15 on [employer] Lab Order: CBC with Diff; SPEC'M 04/12/16 06:46 Test: WHITE BLOOD COUNT; Value: 11.1; Range: 4.0-10.0; Abnormal: Above high normal; Units: K/mm3; Status: F Test: RED BLOOD COUNT; Value: 5.17; Range: 4.30-6.10; Units: M/mm3; Status: F Test: HEMOGLOBIN; Value: 14.8; Range: 14.0-18.0; Units: g/dl; Status: F Test: HEMATOCRIT; Value: 45.6; Range: 42.0-52.0; Units: %; Status: F Test: MEAN CORPUSCULAR VOLUME; Value: 88.2; Range: 80.0-96.0; Units: fl; Status: F Test: MEAN CORPUSCULAR HEMOGLOBIN; Value: 28.6; Range: 27.0-33.0; Units: pg; Status: F Test: MEAN CORPUSCULAR HGB CONC; Value: 32.4; Range: 32.0-36.5; Units: g/dl; Status: F Test: RED CELL DISTRIBUTION WIDTH; Value: 13.9; Range: 11.5-14.5; Units: %; Status: F Test: PLATELET COUNT, AUTOMATED; Value: 219; Range: 150-450; Units: k/mm3; Status: F Test: NEUTROPHILS %; Value: 81.9; Range: 36.0-66.0; Abnormal: Above high normal; Units: %; Status: F Test: LYMPH %; Value: 11.6; Range: 24.0-44.0; Abnormal: Below low normal; Units: %; Status: F Test: MONO %; Value: 4.0; Range: 0.0-5.0; Units: %; Status: F Test: EOS %; Value: 1.0; Range: 0.0-3.0; Units: %; Status: F Test: BASO %; Value: 0.5; Range: 0.0-1.0; Units: %; Status: F Test: LARGE UNSTAINED CELL %; Value: 1.1; Range: 0.0-4.0; Units: %; Status: F Test: NEUTROPHILS #; Value: 9.1; Range: 1.8-7.7; Abnormal: Above high normal; Units: K/mm3; Status: F Test: LYMPH #; Value: 1.3; Range: 1.5-4.5; Abnormal: Below low normal; Units: K/mm3; Status: F Test: MONO #; Value: 0.4; Range: 0.0-0.8; Units: K/mm3; Status: F Test: EOS #; Value: 0.1; Range: 0.0-0.50; Units: K/mm3; Status: F Test: BASO #; Value: 0.1; Range: 0.0-0.2; Units: K/mm3; Status: F Test: LARGE UNSTAINED CELL #; Value: 0.1; Range: 0.0-0.4; Units: K/mm3; Status: F Lab Order: Cardiac Injury Profile; SPEC'M 04/12/16 06:46 Test: CPK CREATINE PHOSPHOKINASE; Value: 142; Range: 39-308; Units: U/L; Status: F Test: CK-MB VALUE MASS; Value: 3.9; Range: 0.0-3.6; Abnormal: Above high normal; Units: NG/ML; Status: F Test: MB/CK RELATIVE INDEX; Value: 2.74; Range: < OR =4; Status: F Test Note: ; DIAGNOSIS CRITERIA MMB ng/ml Relative Index (RI) NON-AMI < or = 5 N/A ANDUJAR ZONE > 5 < or = 4 AMI > 5 > 4 Lab Order: Partial Thromboplastin Time; SPEC'M 04/12/16 06:46 Test: PARTIAL THROMBOPLASTIN TIME; Value: 43.4; Range: 26.6-37.1; Abnormal: Above high normal; Units: SECONDS; Status: F Test: PROTHROMBIN TIME; Range: 12.3-14.5; Units: SECONDS; Status: I Test: INR; Status: I Lab Order: Troponin; SPEC'M 04/12/16 06:46 Test: TROPONIN I; Value: 0.04; Range: < 0.10; Units: NG/ML; Status: F Test Note: ; Troponin I Reference Interval for Siemens [place] LOCI: 99th Percentile= 0.00-0.045 ng/ml Risk Stratification: <= 0.10 ng/ml Decreased Risk for Adverse Clinical Events. 0.10-1.50 ng/ml Increased Risk for Adverse Clinical Events. Evaluation of additional criterion and/or repeat testing in 2-6 hours is suggested to rule out myocardial damage. >= 1.50 ng/ml Indicative of Myocardial Injury. Lab Order: Liver Profile; SPEC'M 04/12/16 06:45 Test: AST/SGOT; Value: 21; Range: 15-37; Units: U/L; Status: F Test: ALT/SGPT; Value: 18; Range: 12-78; Units: U/L; Status: F Test: ALKALINE PHOSPHATASE; Value: 97; Range: 45-117; Units: U/L; Status: F Test: BILIRUBIN,TOTAL; Value: 1.5; Range: 0.2-1.0; Abnormal: Above high normal; Units: MG/DL; Status: F Test: BILIRUBIN,DIRECT; Value: 0.6; Range: 0.0-0.2; Abnormal: Above high normal; Units: MG/DL; Status: F Test: TOTAL PROTEIN; Value: 7.7; Range: 6.4-8.2; Units: GM/DL; Status: F Test: ALBUMIN; Value: 4.1; Range: 3.2-5.2; Units: GM/DL; Status: F Test: ALBUMIN/GLOBULIN RATIO; Value: 1.14; Range: 1.00-1.93; Status: F Lab Order: Amylase; SPEC'M 04/12/16 06:45 Test: AMYLASE; Value: 48; Range: 25-115; Units: U/L; Status: F Lab Order: Lipase; SPEC 04/12/16 06:45 Test: LIPASE; Value: 164; Range: 73-393; Units: U/L; Status: F Lab Order: Type & Screen; 04/12/16 07:23 Test: BLOOD TYPE; Value: B POS; Status: F Test: AB SCREEN (INDIRECT CHILO)GEL; Value: NEGATIVE; Status: F Lab Order: Lactic Acid (Andujar tube on ice); 04/12/16 07:23 Test: LACTIC ACID LEVEL, LACTATE; Value: 2.0; Range: 0.4-2.0; Units: MMOL/L; Status: F Lab Order: MAGNESIUM LEVEL; 04/12/16 06:45 Test: MAGNESIUM LEVEL; Value: 2.2; Range: 1.8-2.4; Units: MG/DL; Status: F Lab Order: PROTHROMBIN TIME PROFILE\E\INR; 04/12/16 06:46 Test: PROTHROMBIN TIME; Value: 32.2; Range: 12.3-14.5; Abnormal: Above high normal; Units: SECONDS; Status: F Test: INR; Value: 3.13; Status: F Test Note: ; THERAPUTIC HUMAN INR VALUES INDICATIONS NORMAL RANGES PROPHYLAXIS/TREATMENT OF: VENOUS THROMBOSIS 2.0-3.0 PULMONARY EMBOLISM 2.0-3.0 PREVENTION OF SYSTEMIC EMBOLISM FROM: TISSUE HEART VALVES 2.0-3.0 ACUTE MYOCARDIAL INFARCTION 2.0-3.0 VALVULAR HEART DISEASE 2.0-3.0 ATRIAL FIBRILLATION 2.0-3.0 MECHANICAL VALVES(HIGH RISK) 2.5-3.5 RECURRENT MYOCARDIAL INFARCTION 2.5-3.5 Lab Order: TSH with Free T4; 04/12/16 06:45 Test: THYROID STIMULATING HORMONE; Value: 3.410; Range: 0.358-3.740; Units: uIU/ML; Status: F Test: FREE T4; Value: 1.59; Range: 0.76-1.46; Abnormal: Above high normal; Units: NG/DL; Status: F Lab Order: CARDIAC MARKER PANEL; [facility] 04/12/16 13:02 Test: CPK CREATINE PHOSPHOKINASE; Value: 121; Range: 39-308; Units: U/L; Status: F Test: CK-MB VALUE MASS; Value: 4.1; Range: 0.0-3.6; Abnormal: Above high normal; Units: NG/ML; Status: F Test: MB/CK RELATIVE INDEX; Value: 3.38; Range: < OR =4; Status: F Test: TROPONIN I; Value: 0.06; Range: < 0.10; Abnormal: Delta; Units: NG/ML; Status: F Test Note: ; DIAGNOSIS CRITERIA MMB ng/ml Relative Index (RI) NON-AMI < or = 5 N/A ANDUJAR ZONE > 5 < or = 4 AMI > 5 > 4 Radiology Order: portable chest Test: portable chest REASON FOR EXAMINATION: Chest Pain; AP portable sitting chest radiograph 04/12/2016; ; Indication: Chest pain; ; Comparison: PA and lateral chest 06/15/2014, 08/12/2015; ; There has been a prior median sternotomy. Cardiac silhouette is mildly enlarged; with left ventricular prominence, unchanged. There is mild interstitial; prominence with lower lobe predominance most compatible with interstitial; scarring , also accentuated by AP portable technique. The appearance is stable.; Bones and soft tissues within normal limits.; ; Impression: mild cardiomegaly again noted with evidence of prior median; sternotomy.; ; Mild generalized interstitial prominence contributed to by portable technique and; likely some underlying interstitial fibrotic scarring . Superimposed mild; pulmonary vascular congestion is not excluded.; ; ; Signed by; Nicky Yee MD 04/12/2016 08:12 A; Radiology Order: CT Chest without contrast Test: CT Chest without contrast REASON FOR EXAMINATION: Chest Pain; CT chest without contrast 04/12/16.; ; Indication: Chest pain; ; Comparison: Chest radiographs 08/12/2015 from [facility], and 04/12/16; ; Findings: The patient has a indwelling stent within the region of the aortic; valve/ aortic root. Moderate calcifications and/or stents noted within the; region of the left anterior descending coronary artery and the left circumflex; coronary artery. Cardiac silhouette is mildly enlarged with left ventricular; prominence. There are mediastinal nodes measuring up to 10 mm short-axis; diameter and hilar nodes, some of which are calcified, consistent with old; granulomatous disease; ; Mild interstitial changes are noted bilaterally with lower lobe predominance.; There is trace right basilar pleural effusion . There is a 7 mm noncalcified; pulmonary nodule in the right lower lobe, image 63 series 204. Calcified; granuloma is present within the posterior basilar segment right lower lobe on; image 79 series 204. Small right apical bullous changes are seen.; ; Coarse calcifications are seen within the posterior segment right lobe of liver; most compatible with old granulomatous disease. There is minimal ascites; surrounding the liver. There are a few calcified granulomata in the spleen.; Visualized portions of pancreas and adrenal glands are normal. Gallbladder is; partially contracted with thickened and/or sludge. There is a abdominal aortic; by iliac stent incompletely included in field of view and was placed for a; abdominal aortic aneurysm. Soft tissue fullness/lobular contour in the lateral; mid pole left kidney may represent prominent lobulation and less likely; mass.; ; Impression; 1. Prior median sternotomy; evidence of prior stent placement traversing the; aortic valve. There is mild cardiomegaly with left ventricular prominence,; unchanged; 2. Interstitial changes bilaterally may be secondary to interstitial scarring; pneumonitis or minimal interstitial pulmonary edema. There is trace right; basilar pleural effusion; ; 3. Noncalcified 7 mm pulmonary nodule within the right lower lobe for which; follow-up CT chest is recommended in 3 months.; ; 4. Mural thickening within the gallbladder and intraluminal sludge. Consider; gallbladder old; ; 5. Lobular contour lateral mid pole left kidney. Recommend follow-up renal; ultrasound to exclude developing mass. Trace abdominal ascites; ; ; Signed by; Nicky Yee MD 04/12/2016 08:26 A; Radiology Order: CT ABD & PELVIS W/O CONTRAST Test: CT ABD & PELVIS W/O CONTRAST REASON FOR EXAMINATION: Abdomen Pain; Clinical: Abdominal pain.; ; Findings:; Small amount of perihepatic and pelvic ascites is appreciated of uncertain; etiology. Calcifications within the right lobe of the liver appear bulky and; chronic and may be related to prior instrumentation or old insult. Splenic; parenchymal calcifications and calcified granuloma at the lung bases are also; identified which may reflect prior granulomas disease. The pancreas is grossly; unremarkable as are the bilateral adrenal glands and kidneys. Chronic-appearing; perinephric stranding is appreciated bilaterally without hydronephrosis small; intrarenal calcifications appear vascular. The gallbladder cannot exclude mild; wall thickening or layering sludge and should be correlated clinically to exclude; acute cholecystitis. The enteric system is without obstruction or acute; inflammatory process and a normal terminal ileum and appendix are identified in; the right lower quadrant. Pelvis demonstrates moderately prominent prostate; gland with mass effect on the base of the bladder which is otherwise normal by; noncontrast evaluation. Small fat containing inguinal hernias noted. The; patient is status post aortoiliac stenting for aneurysm repair. No significant; adenopathy. No free air. Musculoskeletal structures demonstrate degenerative; changes. Lung bases demonstrate minimal right basilar atelectasis and pleural; reaction.; ; Impression:; 1. Small amount of ascites in the perihepatic and pelvic distribution of; uncertain etiology.; 2. Subtle changes of the gallbladder as noted above may reflect cholecystitis; and should be correlated with physical examination and ultrasound if necessary.; 3. 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 Further chronic changes include atherosclerotic disease with aortoiliac; stenting for aneurysm, degenerative changes the musculoskeletal structures, fat; containing inguinal hernias, and moderately prominent prostate gland.; ; ; Signed by; Denzel Del Real MD 04/12/2016 08:08 A; Radiology Order: US Abd complete Test: US Abd complete REASON FOR EXAMINATION: ruq and left kidney, ab ct; Complete abdominal sonography:; ; History: Abnormal CT study. CT examination is from earlier this same date.; History of abdominal pain.; ; Findings: Scanning through the right upper quadrant of the abdomen demonstrates; a slightly contracted appearing thick-walled gallbladder without visible stone or; polyp. No tenderness is seen. The gallbladder wall measures up to 5 mm in; thickness. Common bile duct is normal measuring 0.4 cm in diameter. Coarse; hepatic texture is seen. There is a fairly large coarse calcification in the; right lobe of the liver corresponding to the calcified granuloma seen in this; location on CT. No liver mass lesion is appreciated. There is no evidence of; ascites. The pancreas is obscured by abdominal gas. Spleen is borderline in; size displaying echogenic foci consistent with splenic granuloma. This; corresponds to the CT findings. No focal splenic lesion is seen.; ; Renal cortical echogenicity pattern is normal. There is cortical scarring; affecting the upper and lower pole left kidney. No mass lesion is seen. No; hydronephrosis is seen on either side. Renal cortical echogenicity pattern is; normal. Left renal dimensions are 11.3 x 5.8 x 5.5 cm. Right kidney measures; 11.2 x 4.8 x 4.5 cm.; ; Impression:; ; Granulomatous calcifications in the liver and spleen. Contracted appearing; slightly thick-walled gallbladder without stones. No hydronephrosis seen. Renal; cortical scarring upper and lower pole left kidney.; ; ; Signed by; Luis Dumont MD 04/12/2016 10:43 A; Outcome: 04/12 10:04 Decision to Hospitalize by Provider. ml 23:33 Patient left the ED. cz Signatures: Dispatcher [employer] EDMS Ashley Qureshi MD MD ml Kendra Salas, RN RN mcp Angel Reyez, RN RN cz Annalisa Haynes, Reg Reg gb Cindy Bolanos, Reg Reg lg Chris, Pam sm5 Sherice Badillo, RN RN sls1 Brianna Recio,RN RN [facility] Pauline Cobb, PARKING MANAGER PARKING MANAGER jlf Teresa Olmedo,RN RN Belem Zuniga, PARKING MANAGER PARKING MANAGER rs6 Faye Fraser,RN RN nn1 Juliana French MD MD Briseida Cassidy, PARKING MANAGER PARKING MANAGER ls3 Mimi Hraris Corrections: (The following items were deleted from the chart) 07:15 07:13 MAGNESIUM LEVEL+LAB sent. [facility] EDMS 07:15 07:13 PROTHROMBIN TIME PROFILE\E\INR+LAB sent. [facility] EDMS 07:23 06:44 Home Meds: amiodarone 100 mg Oral tab 1 tab once daily; [facility] Chart Complete [facility]
--- NOTE | 2016-04-15 00:34 | EDDOCDS ---
Physician Documentation [facility] Name: Say Matute Age: 75 yrs Sex: Male : 1940 Arrival Date: 04/12/2016 Time: 06:26 Bed Admit Hold Private MD: Disposition: 04/12 12:11 Critical Care:. ml Disposition: 04/12/16 10:04 Hospitalization ordered by Dionicio Everett for Inpatient Admission. Preliminary diagnosis are Atrial fibrillation and flutter, Abdominal and pelvic pain - rule out left renal mass, rule out gallbladder sludge. - Bed requested for ICU. - Status is Inpatient Admission. cz - Condition is Stable. - Problem is new. - Symptoms are unchanged. Historical: - Allergies: no known allergies; - Home Meds: 1. Lasix 40 mg Oral tab 1 tab 2 times per day (Last dose: 04/11/2016) 2. Xarelto 20 mg oral tab 1 tab once daily 3. Potassium Chloride Unknown Oral 1 cap 2 times per day 4. amiodarone 100 mg Oral tab 1 tab once daily (Last dose: 04/12/2016 05:00) - PMHx: CAD; COPD; - PSHx: CABG (2003); Stents, Coronary; AAA Repair; heart valve replacement; - Social history: Smoking status: Patient uses tobacco products, heavy tobacco smoker. No barriers to communication noted. - Family history: Not pertinent. - : The pt / caregiver states he / she is on anticoagulants: Xarelto Home medication list is obtained from the patient. - Exposure Risk Screening:: None identified. Vital Signs: 06:44 BP 121 / 70; Pulse 146; Resp 24; Temp 98.6; Pulse Ox 95% ; Weight 84.82 kg / 187 lbs; [facility] Height 5 ft. 8 in. (172.72 cm); Pain 5/10; 07:18 BP 114 / 58 (auto/); ead 07:18 Pulse 116 MON; Pulse Ox 96% ; ead 07:30 BP 108 / 59 (auto/); ead 07:30 Pulse 106 MON; Pulse Ox 96% ; ead 07:45 BP 102 / 69 (auto/); ead 07:52 Pulse 123 MON; Pulse Ox 98% ; ead 08:00 BP 113 / 72 (auto/); ead 08:00 Pulse 106 MON; Pulse Ox 96% ; ead 08:08 Pulse 92 MON; Resp 22; Pulse Ox 96% ; ead 08:15 BP 112 / 71 (auto/); ead 08:15 Pulse 113 MON; Pulse Ox 97% ; ead 08:30 BP 107 / 70 (auto/); ead 08:30 Pulse 106 MON; Pulse Ox 96% ; ead 08:45 BP 110 / 78 (auto/); ead 08:46 Pulse 102 MON; Pulse Ox 96% ; ead 09:00 BP 136 / 86 (auto/); ead 09:01 Pulse 112 MON; Pulse Ox 96% ; ead 09:15 BP 99 / 53 (auto/); ead 09:16 Pulse 107 MON; Resp 18; Pulse Ox 95% on R/A; ead 09:30 BP 106 / 79 (auto/); ead 09:30 Pulse 103 MON; Pulse Ox 96% ; ead 09:45 BP 105 / 75 (auto/); ead 09:45 Pulse 101 MON; Pulse Ox 97% ; ead 10:00 BP 113 / 84 (auto/); ead 10:00 Pulse 99 MON; Pulse Ox 97% ; ead 10:15 BP 126 / 81 (auto/); ead 10:15 Pulse 107 MON; Pulse Ox 96% ; ead 10:30 BP 113 / 76 (auto/); ead 10:30 Pulse 106 MON; Pulse Ox 97% ; ead 10:39 Pulse 107 MON; Resp 18; Pulse Ox 95% on R/A; ead 10:45 BP 110 / 84 (auto/); ead 10:45 Pulse Ox 96% ; ead 11:00 BP 100 / 71 (auto/); ead 11:14 Pulse 94 MON; Resp 18; Pulse Ox 97% on R/A; ead 11:15 BP 112 / 85 (auto/); ead 11:15 Pulse 86 MON; Pulse Ox 97% ; ead 11:30 BP 113 / 89 (auto/); ead 11:30 Pulse 106 MON; Pulse Ox 96% ; ead 11:45 BP 118 / 99 (auto/); ead 11:45 Pulse 121 MON; Pulse Ox 96% ; ead 12:00 BP 127 / 104 (auto/); ead 12:00 Pulse 106 MON; Pulse Ox 95% ; ead 12:17 BP 127 / 82 (auto/); ead 12:17 Pulse 100 MON; Pulse Ox 89% ; ead 12:30 BP 110 / 64 (auto/); ead 12:30 Pulse 104 MON; Pulse Ox 97% ; ead 12:45 BP 112 / 58 (auto/); ead 12:45 Pulse 89 MON; Resp 18; Pulse Ox 97% on R/A; ead 13:15 BP 137 / 85 (auto/); ead 13:15 Pulse 122 MON; Pulse Ox 98% ; ead 13:27 Pulse 105 MON; Resp 18; Pulse Ox 96% on R/A; Pain 0/10; ead 13:45 BP 119 / 73 (auto/); ead 13:45 Pulse 100 MON; Pulse Ox 94% ; ead 14:00 BP 122 / 86 (auto/); ead 14:00 Pulse 110 MON; Pulse Ox 97% ; ead 14:15 BP 110 / 84 (auto/); ead 14:15 Pulse 105 MON; Pulse Ox 96% ; ead 14:40 BP 116 / 72 (auto/); ead 14:40 Pulse 119 MON; Pulse Ox 96% ; ead 16:02 Pulse 112 MON; Resp 18; Pulse Ox 98% on R/A; ead 06:44 Body Mass Index 28.43 (84.82 kg, 172.72 cm) [facility] MDM: 06:36 ECG WITH READING ER PHYS+CARDIAG ordered. EDMS 06:41 Aspirin Chewable Tablet 324 mg PO once ordered. fg 06:41 Transportation Planner/Pulse Ox/q 30 min VS ordered. fg 06:41 IV Saline Lock ordered. fg 06:41 Rhythm Strip to chart ordered. fg 06:41 Undress patient appropriately for examination ordered. fg 06:42 B-Type Natiuretic Peptide Ordered. EDMS 06:42 Basic Metabolic Profile Ordered. EDMS 06:42 CBC with Diff Ordered. EDMS 06:42 Cardiac Injury Profile Ordered. EDMS 06:42 Partial Thromboplastin Time Ordered. EDMS 06:42 Troponin Ordered. EDMS 06:42 portable chest Ordered. EDMS 07:05 Type & Screen Ordered. EDMS 07:05 Liver Profile Ordered. EDMS 07:05 Amylase Ordered. EDMS 07:05 Lipase Ordered. EDMS 07:07 Lactic Acid (Andujar tube on ice) Ordered. EDMS 07:15 MAGNESIUM LEVEL Ordered. EDMS 07:15 PROTHROMBIN TIME PROFILE\E\INR Ordered. EDMS 07:22 amiodarone 150 mg IVP once ordered. ml 07:22 Metoprolol 5 mg IVP every 15 minutes; Hold if SBP < 100mmHg or HR < 60bpm x3 ordered. ml 07:23 Basic Metabolic Profile Reviewed. ml 07:23 CBC with Diff Reviewed. ml 07:23 Cardiac Injury Profile Reviewed. ml 07:23 Partial Thromboplastin Time Reviewed. ml 07:23 Troponin Reviewed. ml 07:35 CT Chest without contrast Ordered. EDMS 07:35 CT ABD & PELVIS W/O CONTRAST Ordered. EDMS 07:41 ECG WITH READING ER PHYS+CARDIAG ordered. EDMS 08:07 B-Type Natiuretic Peptide Reviewed. ml 08:07 Partial Thromboplastin Time Reviewed. ml 08:07 Liver Profile Reviewed. ml 08:07 PROTHROMBIN TIME PROFILE\E\INR Reviewed. ml 08:07 Amylase Reviewed. ml 08:07 Lipase Reviewed. ml 08:07 Lactic Acid (Andujar tube on ice) Reviewed. ml 08:07 MAGNESIUM LEVEL Reviewed. ml 08:10 Financial registration complete. lg 08:17 Type & Screen Reviewed. ml 08:17 [facility] Payment Agreement was scanned into Tamr and attached to record. lg 08:44 US Abd complete Ordered. EDMS 08:59 BED REQUEST+ADM ordered. EDMS 09:00 TSH with Free T4 Ordered. EDMS 10:02 TSH with Free T4 Reviewed. ml 10:02 portable chest Reviewed. ml 10:02 CT Chest without contrast Reviewed. ml 10:02 CT ABD & PELVIS W/O CONTRAST Reviewed. ml 12:32 Admission / Observation Status ordered. EDMS 12:33 CARDIAC MARKER PANEL Ordered. EDMS 12:36 URINALYSIS Ordered. EDMS 12:36 URINE CULTURE Ordered. EDMS 14:27 ECHOCARD,DOPPLER/COLOR FLOW ordered. EDMS 15:06 T-Sheet-- Draft Copy was scanned into Tamr and attached to record. gb 18:18 REGULAR DIET ordered. EDMS 19:32 CBC WITH DIFFERENTIAL Ordered. EDMS 19:32 BASIC METABOLIC PROFILE Ordered. EDMS 20:38 LIVER PROFILE Ordered. EDMS 04/14 13:39 Trend VS was scanned into Tamr and attached to record. gb Administered Medications: 04/12 06:53 Drug: Aspirin 324 mg [aspirin 81 mg chewable tablet (4 tabs)] Route: PO; nn1 16:27 Not Given (change in pt status, aware): amiodarone 150 mg IVP once ead 16:27 Not Given (change in pt status, aware): Metoprolol 5 mg IVP every 15 minutes; Hold ead if SBP < 100mmHg or HR < 60bpm x3 Critical Care Time: 12:11 Critical care time: Bedside Care: 120 minutes, Consultation: 20 minutes. Total time: ml 140 minutes Signatures: Dispatcher [employer] EDMS Ashley Qureshi MD MD ml Angel Reyez, RN RN cz Annalisa Haynes, Reg Reg gb Cindy Bolanos, Reg Reg lg Brianna RecioRN RN [facility] Teresa OlmedoRN RN Juliana Reardon MD MD fg Gosselin, Lisa, RN RN lmg Nunez, Nikkole RN nn1 The chart was reviewed and I authenticate all verbal orders and agree with the evaluation and treatment provided.Corrections: (The following items were deleted from the chart) 07:15 07:05 PROTHROMBIN TIME PROFILE\E\INR+LAB ordered. EDMS EDMS 07:15 07:07 MAGNESIUM LEVEL+LAB ordered. EDMS EDMS 07:23 06:44 Home Meds: amiodarone 100 mg Oral tab 1 tab once daily; [facility] ead 07:35 06:50 CT ANGIO CHEST+CT ordered. EDMS EDMS 07:35 06:50 CT ABD & PELVIS WITH CONTRAST+CT ordered. EDMS EDMS 09:11 08:19 GALLBLADDER US+US ordered. EDMS EDMS 20:38 19:32 LIVER PROFILE ordered. EDMS EDMS Attachments: 08:17 [facility] Payment Agreement lg 15:06 T-Sheet-- Draft Copy gb Chart Complete MTDD
--- NOTE | 2016-04-15 00:34 | EDDOCDS ---
Physician Documentation [facility] Name: Say Matute Age: 75 yrs Sex: Male : 1940 Arrival Date: 04/12/2016 Time: 06:26 Bed Admit Hold Private MD: Disposition: 04/12 12:11 Critical Care:. ml Disposition: 04/12/16 10:04 Hospitalization ordered by Dionicio Everett for Inpatient Admission. Preliminary diagnosis are Atrial fibrillation and flutter, Abdominal and pelvic pain - rule out left renal mass, rule out gallbladder sludge. - Bed requested for ICU. - Status is Inpatient Admission. cz - Condition is Stable. - Problem is new. - Symptoms are unchanged. Historical: - Allergies: no known allergies; - Home Meds: 1. Lasix 40 mg Oral tab 1 tab 2 times per day (Last dose: 04/11/2016) 2. Xarelto 20 mg oral tab 1 tab once daily 3. Potassium Chloride Unknown Oral 1 cap 2 times per day 4. amiodarone 100 mg Oral tab 1 tab once daily (Last dose: 04/12/2016 05:00) - PMHx: CAD; COPD; - PSHx: CABG (2003); Stents, Coronary; AAA Repair; heart valve replacement; - Social history: Smoking status: Patient uses tobacco products, heavy tobacco smoker. No barriers to communication noted. - Family history: Not pertinent. - : The pt / caregiver states he / she is on anticoagulants: Xarelto Home medication list is obtained from the patient. - Exposure Risk Screening:: None identified. Vital Signs: 06:44 BP 121 / 70; Pulse 146; Resp 24; Temp 98.6; Pulse Ox 95% ; Weight 84.82 kg / 187 lbs; [facility] Height 5 ft. 8 in. (172.72 cm); Pain 5/10; 07:18 BP 114 / 58 (auto/); ead 07:18 Pulse 116 MON; Pulse Ox 96% ; ead 07:30 BP 108 / 59 (auto/); ead 07:30 Pulse 106 MON; Pulse Ox 96% ; ead 07:45 BP 102 / 69 (auto/); ead 07:52 Pulse 123 MON; Pulse Ox 98% ; ead 08:00 BP 113 / 72 (auto/); ead 08:00 Pulse 106 MON; Pulse Ox 96% ; ead 08:08 Pulse 92 MON; Resp 22; Pulse Ox 96% ; ead 08:15 BP 112 / 71 (auto/); ead 08:15 Pulse 113 MON; Pulse Ox 97% ; ead 08:30 BP 107 / 70 (auto/); ead 08:30 Pulse 106 MON; Pulse Ox 96% ; ead 08:45 BP 110 / 78 (auto/); ead 08:46 Pulse 102 MON; Pulse Ox 96% ; ead 09:00 BP 136 / 86 (auto/); ead 09:01 Pulse 112 MON; Pulse Ox 96% ; ead 09:15 BP 99 / 53 (auto/); ead 09:16 Pulse 107 MON; Resp 18; Pulse Ox 95% on R/A; ead 09:30 BP 106 / 79 (auto/); ead 09:30 Pulse 103 MON; Pulse Ox 96% ; ead 09:45 BP 105 / 75 (auto/); ead 09:45 Pulse 101 MON; Pulse Ox 97% ; ead 10:00 BP 113 / 84 (auto/); ead 10:00 Pulse 99 MON; Pulse Ox 97% ; ead 10:15 BP 126 / 81 (auto/); ead 10:15 Pulse 107 MON; Pulse Ox 96% ; ead 10:30 BP 113 / 76 (auto/); ead 10:30 Pulse 106 MON; Pulse Ox 97% ; ead 10:39 Pulse 107 MON; Resp 18; Pulse Ox 95% on R/A; ead 10:45 BP 110 / 84 (auto/); ead 10:45 Pulse Ox 96% ; ead 11:00 BP 100 / 71 (auto/); ead 11:14 Pulse 94 MON; Resp 18; Pulse Ox 97% on R/A; ead 11:15 BP 112 / 85 (auto/); ead 11:15 Pulse 86 MON; Pulse Ox 97% ; ead 11:30 BP 113 / 89 (auto/); ead 11:30 Pulse 106 MON; Pulse Ox 96% ; ead 11:45 BP 118 / 99 (auto/); ead 11:45 Pulse 121 MON; Pulse Ox 96% ; ead 12:00 BP 127 / 104 (auto/); ead 12:00 Pulse 106 MON; Pulse Ox 95% ; ead 12:17 BP 127 / 82 (auto/); ead 12:17 Pulse 100 MON; Pulse Ox 89% ; ead 12:30 BP 110 / 64 (auto/); ead 12:30 Pulse 104 MON; Pulse Ox 97% ; ead 12:45 BP 112 / 58 (auto/); ead 12:45 Pulse 89 MON; Resp 18; Pulse Ox 97% on R/A; ead 13:15 BP 137 / 85 (auto/); ead 13:15 Pulse 122 MON; Pulse Ox 98% ; ead 13:27 Pulse 105 MON; Resp 18; Pulse Ox 96% on R/A; Pain 0/10; ead 13:45 BP 119 / 73 (auto/); ead 13:45 Pulse 100 MON; Pulse Ox 94% ; ead 14:00 BP 122 / 86 (auto/); ead 14:00 Pulse 110 MON; Pulse Ox 97% ; ead 14:15 BP 110 / 84 (auto/); ead 14:15 Pulse 105 MON; Pulse Ox 96% ; ead 14:40 BP 116 / 72 (auto/); ead 14:40 Pulse 119 MON; Pulse Ox 96% ; ead 16:02 Pulse 112 MON; Resp 18; Pulse Ox 98% on R/A; ead 06:44 Body Mass Index 28.43 (84.82 kg, 172.72 cm) [facility] MDM: 06:36 ECG WITH READING ER PHYS+CARDIAG ordered. EDMS 06:41 Aspirin Chewable Tablet 324 mg PO once ordered. fg 06:41 Canoe Builder/Pulse Ox/q 30 min VS ordered. fg 06:41 IV Saline Lock ordered. fg 06:41 Rhythm Strip to chart ordered. fg 06:41 Undress patient appropriately for examination ordered. fg 06:42 B-Type Natiuretic Peptide Ordered. EDMS 06:42 Basic Metabolic Profile Ordered. EDMS 06:42 CBC with Diff Ordered. EDMS 06:42 Cardiac Injury Profile Ordered. EDMS 06:42 Partial Thromboplastin Time Ordered. EDMS 06:42 Troponin Ordered. EDMS 06:42 portable chest Ordered. EDMS 07:05 Type & Screen Ordered. EDMS 07:05 Liver Profile Ordered. EDMS 07:05 Amylase Ordered. EDMS 07:05 Lipase Ordered. EDMS 07:07 Lactic Acid (Andujar tube on ice) Ordered. EDMS 07:15 MAGNESIUM LEVEL Ordered. EDMS 07:15 PROTHROMBIN TIME PROFILE\E\INR Ordered. EDMS 07:22 amiodarone 150 mg IVP once ordered. ml 07:22 Metoprolol 5 mg IVP every 15 minutes; Hold if SBP < 100mmHg or HR < 60bpm x3 ordered. ml 07:23 Basic Metabolic Profile Reviewed. ml 07:23 CBC with Diff Reviewed. ml 07:23 Cardiac Injury Profile Reviewed. ml 07:23 Partial Thromboplastin Time Reviewed. ml 07:23 Troponin Reviewed. ml 07:35 CT Chest without contrast Ordered. EDMS 07:35 CT ABD & PELVIS W/O CONTRAST Ordered. EDMS 07:41 ECG WITH READING ER PHYS+CARDIAG ordered. EDMS 08:07 B-Type Natiuretic Peptide Reviewed. ml 08:07 Partial Thromboplastin Time Reviewed. ml 08:07 Liver Profile Reviewed. ml 08:07 PROTHROMBIN TIME PROFILE\E\INR Reviewed. ml 08:07 Amylase Reviewed. ml 08:07 Lipase Reviewed. ml 08:07 Lactic Acid (Andujar tube on ice) Reviewed. ml 08:07 MAGNESIUM LEVEL Reviewed. ml 08:10 Financial registration complete. lg 08:17 Type & Screen Reviewed. ml 08:17 [facility] Payment Agreement was scanned into Remo[employer] and attached to record. lg 08:44 US Abd complete Ordered. EDMS 08:59 BED REQUEST+ADM ordered. EDMS 09:00 TSH with Free T4 Ordered. EDMS 10:02 TSH with Free T4 Reviewed. ml 10:02 portable chest Reviewed. ml 10:02 CT Chest without contrast Reviewed. ml 10:02 CT ABD & PELVIS W/O CONTRAST Reviewed. ml 12:32 Admission / Observation Status ordered. EDMS 12:33 CARDIAC MARKER PANEL Ordered. EDMS 12:36 URINALYSIS Ordered. EDMS 12:36 URINE CULTURE Ordered. EDMS 14:27 ECHOCARD,DOPPLER/COLOR FLOW ordered. EDMS 15:06 T-Sheet-- Draft Copy was scanned into [employer] and attached to record. gb 18:18 REGULAR DIET ordered. EDMS 19:32 CBC WITH DIFFERENTIAL Ordered. EDMS 19:32 BASIC METABOLIC PROFILE Ordered. EDMS 20:38 LIVER PROFILE Ordered. EDMS 04/14 13:39 Trend VS was scanned into [employer] and attached to record. gb Administered Medications: 04/12 06:53 Drug: Aspirin 324 mg [aspirin 81 mg chewable tablet (4 tabs)] Route: PO; nn1 16:27 Not Given (change in pt status, aware): amiodarone 150 mg IVP once ead 16:27 Not Given (change in pt status, aware): Metoprolol 5 mg IVP every 15 minutes; Hold ead if SBP < 100mmHg or HR < 60bpm x3 Critical Care Time: 12:11 Critical care time: Bedside Care: 120 minutes, Consultation: 20 minutes. Total time: ml 140 minutes Signatures: Dispatcher [employer] EDMS Ashley Qureshi MD MD ml Angel Reyez, RN RN cz Annalisa Haynes, Reg Reg gb Cindy Bolanos, Reg Reg lg Brianna RecioRN RN [facility] Teresa OlmedoRN RN Juliana Reardon MD MD fg Gosselin, Lisa, RN RN lmg Nunez, Nikkole RN nn1 The chart was reviewed and I authenticate all verbal orders and agree with the evaluation and treatment provided.Corrections: (The following items were deleted from the chart) 07:15 07:05 PROTHROMBIN TIME PROFILE\E\INR+LAB ordered. EDMS EDMS 07:15 07:07 MAGNESIUM LEVEL+LAB ordered. EDMS EDMS 07:23 06:44 Home Meds: amiodarone 100 mg Oral tab 1 tab once daily; [facility] ead 07:35 06:50 CT ANGIO CHEST+CT ordered. EDMS EDMS 07:35 06:50 CT ABD & PELVIS WITH CONTRAST+CT ordered. EDMS EDMS 09:11 08:19 GALLBLADDER US+US ordered. EDMS EDMS 20:38 19:32 LIVER PROFILE ordered. EDMS EDMS Attachments: 08:17 [facility] Payment Agreement lg 15:06 T-Sheet-- Draft Copy gb Chart Complete MTDD
--- NOTE | 2016-04-15 01:52 | IPN ---
DATE OF SERVICE: 04/14/2016 Mr Say Matute was seen earlier this morning, he was supine in bed in no acute distress at rest. He happens to be much better since the last time I have seen him a couple days ago. His shortness of breath has improved, as well as his abdominal symptoms. His heart rate also is under control after increasing the amiodarone and started on short-acting care with metoprolol tartrate. There is no report of chest pain. There is no report of bleeding. He does cough, but there is no hemoptysis. PHYSICAL EXAMINATION: Patient is alert and oriented, in no acute distress at rest. His last vital signs revealed a blood pressure of 133/84 with a pulse of 92, respirations 20, and his maximum temperature is 97.5 degrees Fahrenheit with an oxygen saturation of 99% on room air. Examination of the head, ears, eyes, nose and throat: Atraumatic. Neck is supple with extended jugular, but lower when compared on admission. The lungs reveal only minimal crackles at the bases, but no wheezing. The heart examination revealed irregularly irregular heart sounds without gallops. The point of maximal impulse (PMI) is slightly displaced inferiorly. There is no rub. There is a systolic murmur grade 1-2 over 6 at the lower left sternal border and at the apex without any significant radiation. Abdomen is soft and nontender, bowel sounds are active. Extremities reveal only trace ankle edema. Neurological examination grossly is negative for focal deficit. LABORATORIES: BMP done today revealed a sodium of 134, potassium 4.0, chloride 95, CO2 30, BUN 47, creatinine 1.79, GFR 39.7, fasting glucose 171, and calcium 8.8. CBC revealed a WBC of 10.1, hemoglobin 14.4, hematocrit 43.4, and platelets 244,000. Echocardiogram done today and it revealed a severely depressed globular ventricular systolic function estimated at 10-15%. Full report is pending. IMPRESSION: 1. Decompensated congestive heart failure secondary to left ventricular systolic dysfunction. Patient has severely depressed globular left ventricular systolic function with some restrictive mitral inflow pattern noted that is a poor cardiac prognostic marker. He is currently on beta tiana, and diuretics. I would stay away from angiotensin-converting enzyme (SANTIAGO) inhibitor and ARB at this present time in view of his underlying kidney disease. If his kidney function improves, however, these should be revisited. In the meantime, he will be started on long-acting nitrate and a small dose of hydralazine. He also might be a good candidate for Entresto. He will need an automatic implantable cardioverter-defibrillator (AICD) and this will be discussed with him. It is advisable to discharge him on a Life Vest. Case will be discussed with the hospitalist. Dr. Mcfadden is covering this weekend and if any questions, please do not hesitate to call him. 2. Atrial fibrillation and this seems to be under control, currently on AV blocking agent, as well as amiodarone and Xarelto. 3. History of coronary artery disease and this seems to be stable. 4. Status post aortic valve replacement with a bioprosthetic aortic valve via transcatheter aortic valve replacement (TAVR). 5. History of peripheral arterial disease and abdominal aortic aneurysm. It was a pleasure to participate in the care of Mr. Say Matute for his underlying cardiac condition. I will continue to monitor along with you while in the hospital. His condition sounds improved significantly since in the hospital.
[2016-04-15 04:00] VITALS: BP 116/63
[2016-04-15 04:37] LABS: BASO % 0.4 % (0.0-1.0); EOS # 0.2 K/mm3 (0.0-0.50); EOS % 1.8 % (0.0-3.0); LARGE UNSTAINED CELL # 0.2 K/mm3 (0.0-0.4); LARGE UNSTAINED CELL % 1.4 % (0.0-4.0); LYMPH # 1.6 K/mm3 (1.5-4.5); MEAN CORPUSCULAR HEMOGLOBIN 28.6 pg (27.0-33.0); MEAN CORPUSCULAR HGB CONC 32.6 g/dl (32.0-36.5); MEAN CORPUSCULAR VOLUME 87.6 fl (80.0-96.0); MONO # 0.5 K/mm3 (0.0-0.8); MONO % 4.5 % (0.0-5.0); NEUTROPHILS # 8.2 K/mm3 (1.8-7.7); NEUTROPHILS % 76.9 % (36.0-66.0); PLATELET COUNT, AUTOMATED 228 k/mm3 (150-450); RED CELL DISTRIBUTION WIDTH 14.2 % (11.5-14.5); WHITE BLOOD COUNT 10.7 K/mm3 (4.0-10.0)
[2016-04-15 04:57] LABS: CALCIUM LEVEL 9.1 MG/DL (8.8-10.2); CREATININE FOR GFR 1.96 MG/DL (0.70-1.30); GLOMERULAR FILTRATION RATE 35.8 (>42); POTASSIUM SERUM 4.4 MEQ/L (3.5-5.1)
[2016-04-15] MEDS: CARVedilol 3.125 MG TAB PO SCH ×5 (06:00→23:33)
[2016-04-15 08:00] VITALS: BP 136/93
[2016-04-15] MEDS: ASPIRIN 81 MG ENTERIC TAB PO SCH (08:53)
[2016-04-15] MEDS: SENOKOT S TAB PO SCH ×2 (08:53→22:03)
[2016-04-15] MEDS: POTASSIUM CHLORIDE 10 MEQ SR TABLET PO SCH (08:53)
[2016-04-15] MEDS: NICOTINE 21MG/24HR 1 EA TRANSDERMAL TD SCH (08:53)
[2016-04-15] MEDS: AMIODARONE 200 MG TAB (PACERONE) PO SCH ×2 (08:53→22:03)
[2016-04-15] MEDS: METOPROLOL TART 25 MG TABLET PO SCH (08:54)
[2016-04-15] MEDS: **hydrALAZINE** 10 MG TAB PO SCH (08:54)
[2016-04-15] MEDS: ISOSORBIDE MON. (IMDUR) 30 MG XR TAB PO SCH (08:54)
--- NOTE | 2016-04-15 10:08 | IPNPDOC ---
Assessment/Plan Date Seen The patient was seen on 04/15/16. Problems Problems: (1) Atrial fibrillation, rapid Status: Resolved Response to Treatment: Controlled Discussed With: Lending Advisor, Patient Problem Specific Plan: Consult Specialist Problem Text: Amiodarone increased (recently decreased outpatient). Beta blockade. Anticoagulated with NOAC. Cardiology consultation appreciated. (2) Abdominal pain Status: Resolved Discussed With: Patient Problem Specific Plan: Monitor Clinically Problem Text: Appears to have been secondary to constipation. Responded well to fleet enema. (3) CHF (congestive heart failure) Status: Chronic Response to Treatment: Compensated Discussed With: Lending Advisor, Patient Problem Specific Plan: Consult Specialist, Monitor Clinically, Repeat Labs Problem Text: Transition to PO lasix today as per home dosage. I/O's , daily weights. cardiology consultation appreciated. Echo reveals severe systolic dysfunction reported at 15%. Hydralazine and Imdur added. Life vest for discharge with followup for AICD. (4) Pulmonary nodule Status: Acute Discussed With: Patient Problem Text: CT chest showed 7 mm pulmonary nodule within the right lower lobe. Follow up CT scan in 3 months. (5) Aortic valve replaced Status: Acute Discussed With: Patient Problem Specific Plan: Consult Specialist, Monitor Clinically Problem Text: Recent TAVR roughly 6 weeks ago, Dr. Landry/[place]. To receive medical records from his office, and Dr. Mayes/. (6) CAD (coronary artery disease) Status: Chronic Discussed With: Patient Problem Specific Plan: Consult Specialist, Monitor Clinically Problem Text: s/p [place], CABG, PCI Plan / VTE VTE Prophylaxis Ordered?: Yes (Xarelto) Plan Diet: Continue Current Activity: Continue Current Therapy: PT Medications: Change to PO Diagnostics: Repeat Labs in AM, TTE Anticipated Discharge: Home, Home With Services Disposition Will require discharge with life vest. Arrangements made with supplier '[place]'. Required documents to be faxed. Still pending irrigation laborer of echo report. Subjective Review of Systems CC/HPI The patient is a 75-year-old male admitted with a reason for visit of Abdominal Pain; Atrial Fibrillation, Rapid. General: Denies: Chills, Fatigue, Malaise, Night Sweats, Normal Appetite, Other Symptoms, ROS Unobtainable Constitutional: Denies: Chills, Fatigue, Fever, Lethargy, Malaise, Night Sweats , Other, Weakness, Weight Loss Eyes: Denies: Conjunctivae inflammation, Eyelid inflammation, Other, Pain, Redness, Vision change ENT: Denies: Dysphagia, Ear Pain, Epistaxis, Head Aches, Other Symptoms, Post Nasal Drip, Sinus Congestion, Sore Throat Skin: Denies: Breakdown, Bruising, Dry, Itching, Jaundice, Lesions, Nail Changes, Other, Rash Pulmonary: Denies: Cough, Dyspnea, Other Symptoms, Pleuritic Chest Pain Cardiovascular: Denies: Chest Pain, Edema, Lt Headedness, Orthopnea, Other Symptoms, Palpitations, Paroxysmal Noc. Dyspnea Gastrointestinal: Denies: Abdominal Pain, Constipation, Diarrhea, Hematochezia , Melena, Nausea, Other Symptoms, Vomiting Objective Physical Examination General Exam: Positive: Alert, Cooperative, No Acute Distress Eye Exam: Positive: PERRLA ENT Exam: Positive: Atraumatic, Mucous membr. moist/pink, Other ENT (edentulous ) Neck Exam: Positive: Supple, Negative: JVD, Lymphadenopathy Chest Exam: Positive: Clear to auscultation, Normal air movement, Negative: Rales, Rhonchi, Wheezing Heart Exam: Positive: Irregular Rhythm, Normal S1, Normal S2, Rate Normal, Negative: Gallops, Murmurs, Rubs Telemetry: Positive: Atrial fibrillation Abdomen Exam: Positive: Normal bowel sounds, Negative: Mass, Soft, Tenderness Neuro Exam: Positive: Cranial Nerves 3-12 NL, Sensation Intact, Strength at 5/ 5 X4 ext Psych Exam: Positive: Oriented x 3 Vital Signs/I&O Vital Signs Date Time Temp Pulse Resp B/P Pulse Ox O2 Delivery O2 Flow Rate FiO2 04/15/16 08:54 136/93 04/15/16 08:54 101 04/15/16 08:00 96.9 18 92 Room Air I&O- Last 24 Hours up to 6 AM 04/15/16 06:00 Intake Total 1470 ml Output Total 1025 ml Balance 445 ml Laboratory Data Labs 24H Laboratory Tests 2 04/15/16 04:27: Anion Gap 9, White Blood Count 10.7H, Red Blood Count 5.25, Hemoglobin 15.0, Hematocrit 46.0, Mean Corpuscular Volume 87.6, Mean Corpuscular Hemoglobin 28.6 , Mean Corpuscular Hemoglobin Concent 32.6, Red Cell Distribution Width 14.2, Platelet Count 228, Neutrophils (%) (Auto) 76.9H, Lymphocytes (%) (Auto) 15.0L, Monocytes (%) (Auto) 4.5, Eosinophils (%) (Auto) 1.8, Basophils (%) (Auto) 0.4, Neutrophils # (Auto) 8.2H, Lymphocytes # (Auto) 1.6, Monocytes # (Auto) 0.5, Eosinophils # (Auto) 0.2, Basophils # (Auto) 0.0, Blood Urea Nitrogen 53H, Creatinine 1.96H, Sodium Level 135L, Potassium Level 4.4, Chloride Level 97L, Carbon Dioxide Level 29, Calcium Level 9.1, Glomerular Filtration Rate 35.8L, Large Unclassified Cells # 0.2, Large Unclassified Cells % 1.4 CBC/BMP Laboratory Tests 04/15/16 04:27 Calcium Level 9.1, Red Blood Count 5.25, Mean Corpuscular Volume 87.6, Mean Corpuscular Hemoglobin 28.6, Mean Corpuscular Hemoglobin Concent 32.6, Red Cell Distribution Width 14.2, Neutrophils (%) (Auto) 76.9 H, Lymphocytes (%) (Auto) 15.0 L, Monocytes (%) (Auto) 4.5, Eosinophils (%) (Auto) 1.8, Basophils (%) ( Auto) 0.4, Neutrophils # (Auto) 8.2 H, Lymphocytes # (Auto) 1.6, Monocytes # ( Auto) 0.5, Eosinophils # (Auto) 0.2, Basophils # (Auto) 0.0 Microbiology Microbiology 04/12/16 MRSA Screen - Final, Complete Staph.aureus Methicillin Resis 04/14/16 Urine Culture, Received Pending MERCEDES UGADARRAMA MD Apr 15, 2016 10:08
[2016-04-15 12:00] VITALS: BP 115/59
[2016-04-15] MEDS ORDERED: METO25TAB PO (12:56)
[2016-04-15] MEDS ORDERED: AMIO20TA PO (12:56)
[2016-04-15] MEDS ORDERED: HYDR10TAB PO (12:56)
[2016-04-15] MEDS ORDERED: NICO21PAT TD (12:56)
[2016-04-15] MEDS ORDERED: ISOS30TA4 PO (12:56)
[2016-04-15 16:00] VITALS: BP 117/78
[2016-04-15] MEDS: RIVAROXABAN 20 MG TAB (XARELTO) PO SCH (17:40)
[2016-04-15 20:00] VITALS: BP 99/65
[2016-04-15] MEDS ORDERED: hydrOXYzine 10 MG TAB PO PRN (21:00)
[2016-04-15] MEDS: DOBUTamine HCL 250,000 MCG in APPROPRIATE DILUENT 1 EA IV SCH (22:04)
[2016-04-15] MEDS: LEVALBUTEROL 1.25 MG/0.5 ML CONCENTRATE NEB INH PRN (22:26)
[2016-04-16] VITALS: BP 121/67
--- NOTE | 2016-04-16 02:59 | IPN ---
DATE OF SERVICE: 04/15/2016 Cardiology Progress Note Covering for Dr. Albert SUBJECTIVE: The patient claims to be feeling well; tolerating low level activity in his room without problem. Shortness of breath he claims has improved and he has remained free of chest discomfort. Despite his rhythm disturbance has been free of any awareness of his heart action. No apparent dizziness and tolerating his low-dose medications without adverse effect. OBJECTIVE: Pleasant elderly male ambulating in his room without distress. Resting heart rate in the 90s , increasing to 125-30 with minimal activity. Continues in atrial fibrillation. Blood pressure sitting 100/70, respiratory rate 18 with oxygen saturation 97% on room air. Currently afebrile. Weight in hospital, despite his diuretic therapy, curiously has actually increased 2 kg. No pallor or central cyanosis. Normal oral moisture. Trachea midline. Neck veins remain markedly elevated 3 cm above the clavicle sitting. Has good air entry over both lung sampson, but inspiratory crepitations three-quarters of the way up both lower lobes posteriorly. The apical impulse displaced lateral to the midclavicular line with slightly distant heart sounds. No audible murmur. Soft abdomen, but lower lumbar, sacral and lower leg pitting edema of at least 2 mm three-quarters of the way up both lower legs. personnel monitor: As mentioned remains in atrial fibrillation with controlled rate at rest, increasing markedly with minimal activity in the room. Chest x-ray: Study performed on his admission was reviewed independently and shows a huge heart, slightly unfolded thoracic aorta, pulmonary venous and interstitial congestion, but no pleural effusions. Sternotomy wire sutures. Echocardiogram: Read by myself 06/17/2014, showed a mildly hypertrophied and dilated left ventricle with severe systolic impairment and a dilated left atrium with restrictive impairment of LV diastolic function with elevated mean left atrial pressure. Right heart chambers were also moderately dilated with moderately severe pulmonary hypertension. Note was made of his moderately severe calcific aortic stenosis at that time. [facility] medical records (obtained by myself): Cardiac catheterization 12/09/14: Dilated and globally severely hypokinetic left ventricle, LVEF 32%, severe aortic stenosis with area calculated at 0.9 cm , occluded [place] coronaries, occluded SVG to RCA, patent JEAN to IM and mid LAD. EKG 01/14/16: Sinus bradycardia at 50 bpm with first-degree AV block (NM interval 230 ms). Right axis deviation with LBBB Transfemoral transcutaneous aortic valve replacement 01/14/16: Left femoral approach. Evolut bioprosthetic valve. Transesophageal echo showing no perivalvular leak. EKG 01/19/16: Normal sinus rhythm with marked first-degree AV block (NM interval 204 ms). Right axis deviation with left bundle branch block Basic medical profile 01/18/16: Normal electrolytes potassium 4.2 BUN 27 And 1.27 glucose 127 GFR 55. LABORATORY DATA: Blood work today shows Hemoglobin 15, white blood cell count 10.7 and normal platelet. Electrolytes are in balance, but BUN and creatinine clearly Elevated at 55 and 1.98 despite efforts to improve his rapid ventricular response to atrial fibrillation from admission. (Did not receive contrast with chest and abdominal CT scans04/12/16). IMPRESSION/PLAN: 1. Paroxysmal atrial fibrillation: Patient appears to be somewhat confused about whether he has had this arrhythmia before but admission medications included amiodarone and Xarelto. Claims 24 hours prior to his admission incidentally found his heart rate to be rapid when taking his blood pressure using an automated system. Contacted his physician in [place] and was encouraged to come the hospital. Resting heart rate appears to be controlled as mentioned on low-dose amiodarone and metoprolol. However, suboptimal heart rate control with even minimal activity. Remains on Xarelto without bleeding problem or embolic event. In light of the relatively recent onset of his atrial fibrillation, his dosage of amiodarone has been at least temporarily increased to 200 mg 4 times a day. His metoprolol has also been replaced by carvedilol, especially in light of his left ventricular dysfunction. 2. Heart failure (systolic and diastolic/acute on chronic): Despite the patient is apparently being unaware of his severe left ventricular dysfunction, this is of some chronicity dating back to at least May 2014. Believed to be on the basis of combination ischemic and hypertensive heart disease. I suspect recent TAVR was performed in hopes that relieving his left surgical for tract obstruction would improve systolic performance. According to Dr. Albert (official echocardiographic report from earlier this admission not available at this time) , left ventricular performance remains extremely poor. Interestingly, his BNP level on admission of 598 represents a significant improvement from measured values of May 2014 and September 2015. This is somewhat of a surprise. Dr Albert has planned to make tentative arrangements for a biventricular ICD implant. As mentioned despite improved heart rate control, renal function appears to have deteriorated and he actually has more congestion clinically that he had on admission associated with a 2 kg increase in weight in hospital. I have placed him on a modest salt and fluid intake restriction. His diuretic therapy was discontinued earlier because of his worsening azotemia. I've started low-dose dobutamine infusion and intend to resume parenteral diuretic therapy tomorrow. As mentioned his metoprolol has been switched to carvedilol. Will remain on oral nitrates but at least temporarily have withheld his hydralazine. 3. Coronary artery disease (CAD) ([place] vessel)/post coronary artery bypass graft (CABG): I suspect this condition, his hypertension and the development of a left bundle branch block are the reason for his severely dysfunctional left ventricle. As described above, cardiac catheterization [facility] December 2014, documented very severe coronary disease. I am happy he is free of angina with his rapid ventricular response to his atrial tachyarrhythmia. Serial troponin I levels on his presentation, despite his rapid rate, were negative. Continues on a beta tiana, oral nitrate and Xarelto with low-dose aspirin. 4. Abnormal EKG/left bundle branch block: Undoubtedly this conduction disturbance is related to his ischemic and hypertensive heart disease. It by itself of course is contributing to his impaired left ventricular performance. As mentioned, discussion has been made for implantation of a biventricular implantable cardioverter defibrillator (ICD) - cardiac resynchronization and prevention of sudden . I spoke frankly with the patient regarding his advanced, likely non-fixable cardiac condition and guarded prognosis measured in months not years. From our discussion he appears more reluctant to consider further invasive intervention. I have left it to him to consider advance directives/DNR. I will continue to follow him closely with you until Dr. Albert returns on Sunday. NOLAN
[2016-04-16 04:00] VITALS: BP 120/62
[2016-04-16 04:44] LABS: BASO % 0.5 % (0.0-1.0); EOS # 0.2 K/mm3 (0.0-0.50); EOS % 2.6 % (0.0-3.0); LARGE UNSTAINED CELL # 0.2 K/mm3 (0.0-0.4); LARGE UNSTAINED CELL % 1.9 % (0.0-4.0); LYMPH # 1.5 K/mm3 (1.5-4.5); LYMPH % 15.6 % (24.0-44.0); MEAN CORPUSCULAR HEMOGLOBIN 28.2 pg (27.0-33.0); MEAN CORPUSCULAR HGB CONC 32.4 g/dl (32.0-36.5); MEAN CORPUSCULAR VOLUME 87.1 fl (80.0-96.0); MONO # 0.6 K/mm3 (0.0-0.8); MONO % 6.3 % (0.0-5.0); NEUTROPHILS # 6.9 K/mm3 (1.8-7.7); NEUTROPHILS % 73.2 % (36.0-66.0); PLATELET COUNT, AUTOMATED 207 k/mm3 (150-450); RED CELL DISTRIBUTION WIDTH 14.1 % (11.5-14.5); WHITE BLOOD COUNT 9.4 K/mm3 (4.0-10.0)
[2016-04-16 05:02] LABS: CALCIUM LEVEL 8.7 MG/DL (8.8-10.2); CREATININE FOR GFR 1.42 MG/DL (0.70-1.30); GLOMERULAR FILTRATION RATE 51.9 (>42); POTASSIUM SERUM 3.6 MEQ/L (3.5-5.1)
[2016-04-16] MEDS: CARVedilol 3.125 MG TAB PO SCH ×3 (06:00→17:31)
[2016-04-16 08:00] VITALS: BP 123/92
[2016-04-16] MEDS: SPIRONOLACTONE 12.5MG PER 1/2 TABLET PO SCH (09:00)
[2016-04-16] MEDS: SENOKOT S TAB PO SCH ×2 (09:00→20:28)
[2016-04-16] MEDS: NICOTINE 21MG/24HR 1 EA TRANSDERMAL TD SCH (09:00)
[2016-04-16] MEDS: ASPIRIN 81 MG ENTERIC TAB PO SCH (09:00)
[2016-04-16] MEDS: ISOSORBIDE MON. (IMDUR) 30 MG XR TAB PO SCH (09:00)
--- NOTE | 2016-04-16 09:13 | IPNPDOC ---
Assessment/Plan Date Seen The patient was seen on 04/16/16. Problems Problems: (1) CHF (congestive heart failure) Status: Chronic Response to Treatment: Compensated Discussed With: Turbine Assembler, Patient Problem Specific Plan: Consult Specialist, Monitor Clinically, Repeat Labs Problem Text: Transition to PO lasix today as per home dosage. I/O's , daily weights. cardiology consultation appreciated. Echo reveals severe systolic dysfunction reported at 15%. Hydralazine and Imdur added. Currently on dobutamine drip. Life vest for discharge with followup for AICD. Still pending report of echocardiogram, needed for life vest. (2) Atrial fibrillation, rapid Status: Resolved Response to Treatment: Controlled Discussed With: Turbine Assembler, Patient Problem Specific Plan: Consult Specialist Problem Text: Amiodarone increased (recently decreased outpatient). Beta blockade. Anticoagulated with NOAC. Cardiology consultation appreciated. Amiodarone initially increased to his previous dosage of 200 BID. Increased yesterday to 200mg QID. (3) Abdominal pain Status: Resolved Discussed With: Patient Problem Specific Plan: Monitor Clinically Problem Text: Appears to have been secondary to constipation. Responded well to fleet enema. (4) Pulmonary nodule Status: Acute Discussed With: Patient Problem Text: CT chest showed 7 mm pulmonary nodule within the right lower lobe. Follow up CT scan in 3 months. (5) Aortic valve replaced Status: Acute Discussed With: Patient Problem Specific Plan: Consult Specialist, Monitor Clinically Problem Text: Recent TAVR roughly 6 weeks ago, Dr. Landry/[place]. To receive medical records from his office, and Dr. Mayes/. (6) CAD (coronary artery disease) Status: Chronic Discussed With: Patient Problem Specific Plan: Consult Specialist, Monitor Clinically Problem Text: s/p [place], CABG, PCI Plan / VTE VTE Prophylaxis Ordered?: Yes (Xarelto) Plan Diet: Continue Current Activity: Continue Current Therapy: PT Medications: Change to PO Diagnostics: Repeat Labs in AM Anticipated Discharge: Home, Home With Services Subjective Review of Systems CC/HPI The patient is a 75-year-old male admitted with a reason for visit of Abdominal Pain; Atrial Fibrillation, Rapid. General: Denies: Chills, Fatigue, Malaise, Night Sweats, Normal Appetite, Other Symptoms, ROS Unobtainable Constitutional: Denies: Chills, Fatigue, Fever, Lethargy, Malaise, Night Sweats , Other, Weakness, Weight Loss Eyes: Denies: Conjunctivae inflammation, Eyelid inflammation, Other, Pain, Redness, Vision change ENT: Denies: Dysphagia, Ear Pain, Epistaxis, Head Aches, Other Symptoms, Post Nasal Drip, Sinus Congestion, Sore Throat Skin: Denies: Breakdown, Bruising, Dry, Itching, Jaundice, Lesions, Nail Changes, Other, Rash Pulmonary: Denies: Cough, Dyspnea, Other Symptoms, Pleuritic Chest Pain Cardiovascular: Denies: Chest Pain, Edema, Lt Headedness, Orthopnea, Other Symptoms, Palpitations, Paroxysmal Noc. Dyspnea Gastrointestinal: Denies: Abdominal Pain, Constipation, Diarrhea, Hematochezia , Melena, Nausea, Other Symptoms, Vomiting Objective Physical Examination General Exam: Positive: Alert, Cooperative, No Acute Distress Eye Exam: Positive: PERRLA ENT Exam: Positive: Atraumatic, Mucous membr. moist/pink, Other ENT (edentulous ) Neck Exam: Positive: Supple, Negative: JVD, Lymphadenopathy Chest Exam: Positive: Clear to auscultation, Normal air movement, Negative: Rales, Rhonchi, Wheezing Heart Exam: Positive: Irregular Rhythm, Normal S1, Normal S2, Rate Normal, Negative: Gallops, Murmurs, Rubs Telemetry: Positive: Atrial fibrillation Abdomen Exam: Positive: Normal bowel sounds, Negative: Mass, Soft, Tenderness Extremity Exam: Negative: Clubbing, Cyanosis, Edema Neuro Exam: Positive: Cranial Nerves 3-12 NL, Sensation Intact, Strength at 5/ 5 X4 ext Psych Exam: Positive: Oriented x 3 Vital Signs/I&O Vital Signs Date Time Temp Pulse Resp B/P Pulse Ox O2 Delivery O2 Flow Rate FiO2 04/16/16 06:00 56 04/16/16 04:00 96.5 22 120/62 95 Room Air I&O- Last 24 Hours up to 6 AM 04/16/16 06:00 Intake Total 1466 ml Output Total 700 ml Balance 766 ml Laboratory Data Labs 24H Laboratory Tests 2 04/16/16 04:36: Anion Gap 9, White Blood Count 9.4, Red Blood Count 4.55, Hemoglobin 12.8#L, Hematocrit 39.6L, Mean Corpuscular Volume 87.1, Mean Corpuscular Hemoglobin 28.2 , Mean Corpuscular Hemoglobin Concent 32.4, Red Cell Distribution Width 14.1, Platelet Count 207, Neutrophils (%) (Auto) 73.2H, Lymphocytes (%) (Auto) 15.6L, Monocytes (%) (Auto) 6.3H, Eosinophils (%) (Auto) 2.6, Basophils (%) (Auto) 0.5 , Neutrophils # (Auto) 6.9, Lymphocytes # (Auto) 1.5, Monocytes # (Auto) 0.6, Eosinophils # (Auto) 0.2, Basophils # (Auto) 0.0, Blood Urea Nitrogen 47H, Creatinine 1.42H, Sodium Level 137, Potassium Level 3.6, Chloride Level 100, Carbon Dioxide Level 28, Calcium Level 8.7L, Glomerular Filtration Rate 51.9, Large Unclassified Cells # 0.2, Large Unclassified Cells % 1.9 CBC/BMP Laboratory Tests 04/16/16 04:36 Calcium Level 8.7 L, Red Blood Count 4.55, Mean Corpuscular Volume 87.1, Mean Corpuscular Hemoglobin 28.2, Mean Corpuscular Hemoglobin Concent 32.4, Red Cell Distribution Width 14.1, Neutrophils (%) (Auto) 73.2 H, Lymphocytes (%) (Auto) 15.6 L, Monocytes (%) (Auto) 6.3 H, Eosinophils (%) (Auto) 2.6, Basophils (%) ( Auto) 0.5, Neutrophils # (Auto) 6.9, Lymphocytes # (Auto) 1.5, Monocytes # (Auto ) 0.6, Eosinophils # (Auto) 0.2, Basophils # (Auto) 0.0 Microbiology Microbiology 04/12/16 MRSA Screen - Final, Complete Staph.aureus Methicillin Resis 04/14/16 Urine Culture - Final, Complete Staphylococcus Capitis MERCEDES GUADARRAMA MD Apr 16, 2016 09:12
[2016-04-16] MEDS: AMIODARONE 200 MG TAB (PACERONE) PO SCH ×4 (09:54→20:28)
[2016-04-16 12:00] VITALS: BP 109/51
[2016-04-16] MEDS: FUROSEMIDE 40 MG/4 ML VIAL (J1940) IV SCH ×3 (12:00→19:41)
[2016-04-16] MEDS: POTASSIUM CHLORIDE 10 MEQ SR TABLET PO SCH ×3 (13:00→20:27)
--- NOTE | 2016-04-16 13:51 | IPN ---
DATE: 04/16/2016 CARDIOLOGY PROGRESS NOTE, COVERING FOR DR. CONTRERAS SUBJECTIVE: The patient claims to have slept well and appears to be tolerating our medication adjustments. On his low level of activity in his room up to the bathroom has been free of any chest discomfort, shortness of breath or lightheadedness. Remains free of any awareness of his heart action. OBJECTIVE: Pleasant, slightly barrel-chested, elderly male lying comfortably with the head of the bed elevated 30 degrees. Heart rate varying from 86 beats per minute and regular to 130 beats per minute and irregular. Blood pressure 120/70, respiratory rate 18 with oxygen saturation 96% on room air. Afebrile. His weight was not recorded today. Intake and output balance is inaccurate. No pallor or central cyanosis. Normal oral moisture. Trachea midline. Neck veins remain significantly elevated, even with the patient sitting upright, visible, at least 3-4 cm, above his clavicles. Fairly good air entry over both lung sampson with continued inspiratory crepitations at least one half of the way up posteriorly. Sacral pitting and lower leg pitting as before. clinical research monitor: In my presence, the patient is flipping from atrial fibrillation into sinus rhythm, at least briefly, with rate going from 130 down to 86 and then back up to more rapid rate with irregular atrial fibrillation. Certainly, a positive response to increased amiodarone therapy. LABORATORY DATA: Hemoglobin 12.8 with normal white blood cell count and platelet count. His electrolytes were in balance with potassium has decreased to 3.6 from 4.4 yesterday. His renal function has improved with low-dose dobutamine with BUN dropping to 47 and creatinine to 1.4. Fasting glucose 186. IMPRESSION AND PLAN: 1. Paroxysmal atrial fibrillation: Appears to be responding to increased amiodarone and low-dose carvedilol. Intermittent bouts of sinus rhythm were documented. Would plan on continuing his present dose of amiodarone 200 mg four times a day for at least the next week. Recognizing his low-dose on admission was ineffective, I would plan on keeping him on 200 mg twice a day (recognizing his long-term prognosis is extremely guarded). Remains on Xarelto with slight drop in his hemoglobin but no manifest bleeding. 2. Heart failure (systolic and diastolic/acute on chronic): As mentioned, while he has been in hospital has developed more signs of congestion and the reduction in renal perfusion. Overnight, his renal function has improved with low-dose dobutamine. This morning, I have ordered parenteral diuretic 40 mg every 4 hours aiming for a negative fluid balance of a liter daily until he reaches his effective dry weight. I am hoping he will tolerate at least a low-dose of carvedilol with his isosorbide mononitrate. If this is tolerated with adequate blood pressure, I had planned on resuming his hydralazine gradually using the dobutamine as a safety net. 3. Coronary artery disease ([place] vessel)/post coronary bypass surgery: Remains free of symptomatic myocardial ischemia. As mentioned, he is currently on carvedilol, oral nitrate and Xarelto with low-dose aspirin. 4. Abnormal EKG / left bundle branch block: Conduction disturbance has been present for at least the past year with impaired LV systolic function present for at least the past 2 years and has had obvious signs of congestion. Curiously, discussion regarding advanced measures and possible biventricular ICD implant have never previously been made. The patient this morning wishes to be DO NOT RESUSCITATE. Medical Orders for Life Sustaining Treatment (MOLST) forms were prepared. In this circumstance, thoughts of ICD implant are inappropriate. Dr. Contreras will be resuming primary cardiology care tomorrow morning.
[2016-04-16 16:00] VITALS: BP 102/56
[2016-04-16] MEDS: RIVAROXABAN 20 MG TAB (XARELTO) PO SCH (17:31)
[2016-04-16] MEDS: DOBUTamine HCL 250,000 MCG in APPROPRIATE DILUENT 1 EA IV SCH (19:38)
[2016-04-16 20:00] VITALS: BP 111/58
[2016-04-16] MEDS: LEVALBUTEROL 1.25 MG/0.5 ML CONCENTRATE NEB INH PRN (20:08)
--- NOTE | 2016-04-16 23:53 | ECHO ---
DATE OF SERVICE: 04/14/2016 REFERRING PROVIDER: Dionicio Everett MD PATIENT LOCATION: Room 3208. REASON FOR THE ECHOCARDIOGRAM: Atrial fibrillation, history of recent aortic valve replacement, coronary artery disease, and history of coronary artery bypass graft (CABG). Congestive heart failure. 2D MEASUREMENTS: IVS: 1.1 cm LV: 5.8 cm LVPW: 1.1 cm LA: 4.4 cm Aorta: 3.2 cm IVC: 1.9 cm DOPPLER MEASUREMENTS: Peak velocity across the aortic valve: 0.94 m/s Peak velocity across the LVOT: 0.49 m/s Mitral E: 1.0 Maximum tricuspid valve velocity: 2.7 m/s 2D COMMENTS: 1. Mildly increased left ventricular size with normal left ventricular wall thickness but a severely depressed global left ventricular systolic function. There was severe diffuse hypokinesis with an estimated left ventricular systolic ejection fraction of 10-15%. 2. Mildly enlarged left atrium and right atrium. The right ventricle may be mildly enlarged in limited views. The right ventricular free wall was not well visualized. The atrial septum appeared to be normal without evidence of defect or shunt. 3. Normal aortic root. 4. No pericardial effusion seen. 5. A bioprosthetic aortic valve was noted; leaflet excursion appeared to be normal. Mildly calcified mitral annulus with normal anterior mitral valve leaflet motion. Normal tricuspid valve. The pulmonic valve and proximal pulmonary artery branches were not well visualized. 6. The inferior vena cava appeared to be normal in size. Central venous pressure might be normal. DOPPLER: It detects mild aortic regurgitation, mild to moderate mitral regurgitation, and moderate tricuspid regurgitation. The calculated pulmonary artery systolic pressure varies between 30 to 40 mmHg. A restrictive mitral E flow pattern was noted across the mitral valve, a manifestation of severe left ventricular systolic dysfunction and poor cardiac prognostic indicator. IMPRESSION: 1. Severe left ventricular systolic dysfunction with a mildly enlarged left ventricle and severe global hypokinesis. There were features of left ventricular diastolic dysfunction noted in limited study, restrictive. 2. Bioprosthetic aortic valve with mild aortic regurgitation but no aortic stenosis. 3. Mitral annulus calcification with mildly enlarged left atrium and mild to moderate mitral regurgitation. 4. Moderate tricuspid regurgitation with mild pulmonary hypertension. Cannot rule out more severe pulmonary hypertension. The right atrium was mildly enlarged. 5. No prior study for comparison.
[2016-04-17] VITALS: BP 113/65
[2016-04-17] MEDS: CARVedilol 3.125 MG TAB PO SCH ×4 (01:13→17:30)
[2016-04-17] MEDS: FUROSEMIDE 40 MG/4 ML VIAL (J1940) IV SCH ×6 (01:16→21:20)
[2016-04-17] MEDS: LEVALBUTEROL 1.25 MG/0.5 ML CONCENTRATE NEB INH PRN ×2 (03:33→22:14)
[2016-04-17 04:00] VITALS: BP 110/66
[2016-04-17 05:04] LABS: CALCIUM LEVEL 8.3 MG/DL (8.8-10.2); CREATININE FOR GFR 1.54 MG/DL (0.70-1.30); GLOMERULAR FILTRATION RATE 47.2 (>42); POTASSIUM SERUM 3.9 MEQ/L (3.5-5.1)
[2016-04-17 05:05] LABS: BASO % 0.5 % (0.0-1.0); EOS # 0.2 K/mm3 (0.0-0.50); EOS % 2.9 % (0.0-3.0); LARGE UNSTAINED CELL # 0.2 K/mm3 (0.0-0.4); LYMPH # 1.2 K/mm3 (1.5-4.5); LYMPH % 13.2 % (24.0-44.0); MEAN CORPUSCULAR HEMOGLOBIN 28.5 pg (27.0-33.0); MEAN CORPUSCULAR HGB CONC 32.6 g/dl (32.0-36.5); MEAN CORPUSCULAR VOLUME 87.5 fl (80.0-96.0); MONO # 0.6 K/mm3 (0.0-0.8); MONO % 6.8 % (0.0-5.0); NEUTROPHILS # 6.6 K/mm3 (1.8-7.7); NEUTROPHILS % 74.7 % (36.0-66.0); PLATELET COUNT, AUTOMATED 210 k/mm3 (150-450); RED CELL DISTRIBUTION WIDTH 14.3 % (11.5-14.5); WHITE BLOOD COUNT 8.8 K/mm3 (4.0-10.0)
--- NOTE | 2016-04-17 07:25 | IPNPDOC ---
Assessment/Plan Date Seen The patient was seen on 04/17/16. Problems Problems: (1) CHF (congestive heart failure) Status: Chronic Response to Treatment: Compensated Discussed With: Mechanical Design Drafter, Patient Problem Specific Plan: Consult Specialist, Monitor Clinically, Repeat Labs Problem Text: Transition back to IV lasix. I/O's , daily weights. cardiology consultation appreciated. Echo reveals severe systolic dysfunction reported at 15%. Hydralazine and Imdur added. BB adjusted to carvedilol. Currently on dobutamine drip. Patient opted for DNR/DNI. (2) Atrial fibrillation, rapid Status: Resolved Response to Treatment: Controlled Discussed With: Mechanical Design Drafter, Patient Problem Specific Plan: Consult Specialist Problem Text: Amiodarone increased (recently decreased outpatient) to 200 QID. Beta blockade adjusted to carvedilol. Anticoagulated with NOAC. Cardiology consultation appreciated. (3) Abdominal pain Status: Resolved Discussed With: Patient Problem Specific Plan: Monitor Clinically Problem Text: Appears to have been secondary to constipation. Responded well to fleet enema. (4) Pulmonary nodule Status: Acute Discussed With: Patient Problem Text: CT chest showed 7 mm pulmonary nodule within the right lower lobe. Follow up CT scan in 3 months. (5) Aortic valve replaced Status: Acute Discussed With: Patient Problem Specific Plan: Consult Specialist, Monitor Clinically Problem Text: Recent TAVR roughly 6 weeks ago, Dr. Landry/De[place]. (6) CAD (coronary artery disease) Status: Chronic Discussed With: Patient Problem Specific Plan: Consult Specialist, Monitor Clinically Problem Text: s/p IN, CABG, PCI Plan / VTE VTE Prophylaxis Ordered?: Yes (Xarelto) Plan Diet: Continue Current Activity: Continue Current Therapy: PT Medications: Change to PO Diagnostics: Repeat Labs in AM Anticipated Discharge: Home, Home With Services Subjective Review of Systems CC/HPI The patient is a 75-year-old male admitted with a reason for visit of Abdominal Pain; Atrial Fibrillation, Rapid. Events since last encounter Sitting comfortably in chair eating breakfast. No new medical complaints. General: Denies: Chills, Fatigue, Malaise, Night Sweats, Normal Appetite, Other Symptoms, ROS Unobtainable Constitutional: Denies: Chills, Fatigue, Fever, Lethargy, Malaise, Night Sweats , Other, Weakness, Weight Loss Eyes: Denies: Conjunctivae inflammation, Eyelid inflammation, Other, Pain, Redness, Vision change ENT: Denies: Dysphagia, Ear Pain, Epistaxis, Head Aches, Other Symptoms, Post Nasal Drip, Sinus Congestion, Sore Throat Skin: Denies: Breakdown, Bruising, Dry, Itching, Jaundice, Lesions, Nail Changes, Other, Rash Pulmonary: Denies: Cough, Dyspnea, Other Symptoms, Pleuritic Chest Pain Cardiovascular: Denies: Chest Pain, Edema, Lt Headedness, Orthopnea, Other Symptoms, Palpitations, Paroxysmal Noc. Dyspnea Gastrointestinal: Denies: Abdominal Pain, Constipation, Diarrhea, Hematochezia , Melena, Nausea, Other Symptoms, Vomiting Genitourinary: Denies: Dysuria, Frequency, Hematuria, Incontinence, Other Symptoms, Retention Objective Physical Examination General Exam: Positive: Alert, Cooperative, No Acute Distress Eye Exam: Positive: PERRLA ENT Exam: Positive: Atraumatic, Mucous membr. moist/pink, Other ENT (edentulous ) Neck Exam: Positive: Supple Chest Exam: Positive: Clear to auscultation, Normal air movement Heart Exam: Positive: Irregular Rhythm, Normal S1, Normal S2, Rate Normal, Negative: Murmurs Telemetry: Positive: Atrial fibrillation, Sinus Abdomen Exam: Positive: Normal bowel sounds, Negative: Mass, Soft, Tenderness Extremity Exam: Negative: Edema Neuro Exam: Positive: Cranial Nerves 3-12 NL Psych Exam: Positive: Mental status NL, Mood NL, Oriented x 3 Vital Signs/I&O Vital Signs Date Time Temp Pulse Resp B/P Pulse Ox O2 Delivery O2 Flow Rate FiO2 04/17/16 06:11 83 04/17/16 04:00 97.5 20 110/66 96 Room Air I&O- Last 24 Hours up to 6 AM 04/17/16 06:00 Intake Total 1429 ml Output Total 1280 ml Balance 149 ml Laboratory Data Labs 24H Laboratory Tests 2 04/17/16 04:22: Anion Gap 8, White Blood Count 8.8, Red Blood Count 4.56, Hemoglobin 13.0L, Hematocrit 39.9L, Mean Corpuscular Volume 87.5, Mean Corpuscular Hemoglobin 28.5 , Mean Corpuscular Hemoglobin Concent 32.6, Red Cell Distribution Width 14.3, Platelet Count 210, Neutrophils (%) (Auto) 74.7H, Lymphocytes (%) (Auto) 13.2L, Monocytes (%) (Auto) 6.8H, Eosinophils (%) (Auto) 2.9, Basophils (%) (Auto) 0.5 , Neutrophils # (Auto) 6.6, Lymphocytes # (Auto) 1.2L, Monocytes # (Auto) 0.6, Eosinophils # (Auto) 0.2, Basophils # (Auto) 0.0, Blood Urea Nitrogen 39H, Creatinine 1.54H, Sodium Level 137, Potassium Level 3.9, Chloride Level 102, Carbon Dioxide Level 27, Calcium Level 8.3L, Glomerular Filtration Rate 47.2, Large Unclassified Cells # 0.2, Large Unclassified Cells % 2.0 CBC/BMP Laboratory Tests 04/17/16 04:22 Calcium Level 8.3 L, Red Blood Count 4.56, Mean Corpuscular Volume 87.5, Mean Corpuscular Hemoglobin 28.5, Mean Corpuscular Hemoglobin Concent 32.6, Red Cell Distribution Width 14.3, Neutrophils (%) (Auto) 74.7 H, Lymphocytes (%) (Auto) 13.2 L, Monocytes (%) (Auto) 6.8 H, Eosinophils (%) (Auto) 2.9, Basophils (%) ( Auto) 0.5, Neutrophils # (Auto) 6.6, Lymphocytes # (Auto) 1.2 L, Monocytes # ( Auto) 0.6, Eosinophils # (Auto) 0.2, Basophils # (Auto) 0.0 Microbiology Microbiology 04/12/16 MRSA Screen - Final, Complete Staph.aureus Methicillin Resis 04/14/16 Urine Culture - Final, Complete Staphylococcus Capitis MERCEDES GUADARRAMA MD Apr 17, 2016 07:25
[2016-04-17 07:30] VITALS: BP 93/51
[2016-04-17] MEDS: SPIRONOLACTONE 12.5MG PER 1/2 TABLET PO SCH (08:19)
[2016-04-17] MEDS: ISOSORBIDE MON. (IMDUR) 30 MG XR TAB PO SCH (08:20)
[2016-04-17] MEDS: ASPIRIN 81 MG ENTERIC TAB PO SCH (08:20)
[2016-04-17] MEDS: POTASSIUM CHLORIDE 10 MEQ SR TABLET PO SCH ×4 (08:20→21:20)
[2016-04-17] MEDS: AMIODARONE 200 MG TAB (PACERONE) PO SCH ×4 (08:20→21:19)
[2016-04-17] MEDS: NICOTINE 21MG/24HR 1 EA TRANSDERMAL TD SCH (08:20)
[2016-04-17] MEDS: SENOKOT S TAB PO SCH ×2 (08:20→21:19)
[2016-04-17 12:00] VITALS: BP 97/63
[2016-04-17 15:30] VITALS: BP 105/60
[2016-04-17] MEDS: RIVAROXABAN 20 MG TAB (XARELTO) PO SCH (17:30)
--- NOTE | 2016-04-17 19:53 | ECGEPIP ---
Stationary ECG Study [facility] Test Date: 2016-04-17 Pat Name: PATRICIA VELASQUEZ Department: Room: [place] [address] Gender: M Chargeback Specialist: YULI : 1940 Requested By: Bret Mcfadden Order Number: [id number] Reading MD: Milad Cordero Measurements Intervals [place] Rate: 77 P: NM: 0 QRS: 130 QRSD: 185 T: 0 QT: 486 QTc: 551 Interpretive Statements Atrial fibrillation with controlled ventricular response Left bundle branch block No significant change when compared to prior tracing of 04/13/2016 Electronically Signed On 04-17-2016 19:53:39 EST by Milad Cordero
[2016-04-17 20:23] VITALS: BP 116/76
--- NOTE | 2016-04-18 00:08 | IPN ---
DATE OF SERVICE: 04/17/2016 I saw Mr. Matute this morning on rounds. He tells me that his breathing is much improved. He feels that he has a little more energy. He denies any chest discomfort or sensation of palpitations. Vital signs: This morning, blood pressure was 93/51, heart rate from 60s to 80s. He was afebrile. Saturation was 95% on room air. Fluid balance yesterday was about 150 mL negative. Weight was documented at 87.5 kg. His JVP is still high, at least 4 or 5 cm. Lungs are relatively clear to auscultation, though I do not appreciate any wheezing or crackles or rhonchi. Heart exam reveals somewhat muffled heart sound, but irregularly irregular rhythm with a murmur best heard at the apex, 2/6 intensity. Abdomen is soft, nontender. There is only mild peripheral edema. Neurologically, he appears intact. LABORATORY: His CBC is essentially normal with hemoglobin 13, hematocrit 29.9 and platelet count 210,000. Basic metabolic panel: Potassium 3.9, BUN 39, creatinine 1.44, GFR 47, and glucose 180. ASSESSMENT AND PLAN: Mr. Matute is a 75-year-old male who has known ischemic cardiomyopathy and probably paroxysmal atrial fibrillation, together with the recent transcatheter aortic valve replacement (TAVR). He is known to have severe left ventricular systolic dysfunction, which is not new but probably worse compared to past. He initially presented with atrial fibrillation with rapid ventricular response (RVR) with poorly controlled rate in the setting of being on low-dose amiodarone treatment as an outpatient. His condition has improved. His atrial fibrillation is now better rate controlled on combination of amiodarone and Coreg. Unfortunately, he is still on dobutamine. I will discontinue the medication as it has been associated with deteriorating prognosis. As far as congestive heart failure is concerned, he seems to the progressing quite nicely. His creatinine remains approximately stable and we did accomplish some diuresis. I am hoping that the same will continue while the dobutamine is discontinued. Finally, I had a discussion with the patient about his code status and potential plans for external or internal defibrillator. Based on Dr. Albert's note, there was a plan for LifeVest, but then Dr. Mcfadden had a discussion with the patient about his prognosis and wishes and the patient has decided to change his code status to DO NOT RESUSCITATE. Based on my discussion with him today, it is my impression that the patient has extremely poor understanding of what these terms mean and what effect they might or might not have on his long-term quality of life and survival. I spent at least 15 minutes discussing the principles and expected benefits of defibrillator placement. Finally, I was leaving the bedside with the impression that I did not make much progress. I spoke with Dr. Everett and he will contact Dr. Mayes, who is his principal mounted police, to discuss his opinion. Hopefully, we will have some coordinated recommendation to the patient. My personal impression at this point is that he still might be considered actually probably a decent candidate, but I do not have a good feel for his long-term situation leading to this point. I will continue following the patient with you. NOLAN
[2016-04-18] MEDS: CARVedilol 3.125 MG TAB PO SCH ×2 (00:44→04:51)
[2016-04-18 00:45] VITALS: BP 149/75
[2016-04-18] MEDS: FUROSEMIDE 40 MG/4 ML VIAL (J1940) IV SCH ×3 (00:45→08:59)
[2016-04-18 04:00] VITALS: BP 111/65
[2016-04-18 05:34] LABS: BASO % 0.4 % (0.0-1.0); EOS # 0.2 K/mm3 (0.0-0.50); EOS % 2.1 % (0.0-3.0); LARGE UNSTAINED CELL # 0.2 K/mm3 (0.0-0.4); LYMPH # 1.2 K/mm3 (1.5-4.5); LYMPH % 15.2 % (24.0-44.0); MEAN CORPUSCULAR HEMOGLOBIN 28.5 pg (27.0-33.0); MEAN CORPUSCULAR HGB CONC 32.3 g/dl (32.0-36.5); MEAN CORPUSCULAR VOLUME 88.2 fl (80.0-96.0); MONO # 0.5 K/mm3 (0.0-0.8); MONO % 6.3 % (0.0-5.0); NEUTROPHILS # 5.8 K/mm3 (1.8-7.7); PLATELET COUNT, AUTOMATED 196 k/mm3 (150-450); RED CELL DISTRIBUTION WIDTH 14.2 % (11.5-14.5); WHITE BLOOD COUNT 7.9 K/mm3 (4.0-10.0)
[2016-04-18 05:54] LABS: CALCIUM LEVEL 8.6 MG/DL (8.8-10.2); CREATININE FOR GFR 1.73 MG/DL (0.70-1.30); GLOMERULAR FILTRATION RATE 41.3 (>42); POTASSIUM SERUM 3.6 MEQ/L (3.5-5.1)
[2016-04-18 07:30] VITALS: BP 120/69
[2016-04-18] MEDS: ASPIRIN 81 MG ENTERIC TAB PO SCH (09:00)
[2016-04-18] MEDS: POTASSIUM CHLORIDE 10 MEQ SR TABLET PO SCH (09:00)
[2016-04-18] MEDS ORDERED: TORS20TA2 PO (09:00)
[2016-04-18] MEDS: SENOKOT S TAB PO SCH (09:00)
[2016-04-18] MEDS ORDERED: AMIO400T PO (09:00)
[2016-04-18] MEDS: AMIODARONE 200 MG TAB (PACERONE) PO SCH (09:00)
[2016-04-18 09:01] VITALS: BP 120/69
[2016-04-18] MEDS: ISOSORBIDE MON. (IMDUR) 30 MG XR TAB PO SCH (09:01)
[2016-04-18] MEDS: NICOTINE 21MG/24HR 1 EA TRANSDERMAL TD SCH (09:02)
[2016-04-18] MEDS: SPIRONOLACTONE 12.5MG PER 1/2 TABLET PO SCH (09:10)
--- NOTE | 2016-04-18 09:41 | IPNPDOC ---
[facility] Cardiology Progress Note Date of Service/Time The patient was seen on 04/18/16 at 09:20. Cardiology Progress Note SUBJECTIVE: Mr. Matute is a 75 y/o male who was admitted for "racing heart rate and abdominal pain" who was found to be in atrial fibrillation RVR with poorly controlled ventricular response. Today at bedside, the patient is laying down at a slight 30 incline and admits that he feels better but still does seem a bit labored with his breathing although he denies this. He denies any chest pain, or palpitations and states that his SOB only really bothers him after he walks a great distance ( half a mile). The patient wishes to go home today. We had another discussion about his DNR status and it seems he still is not mentally grasping the full implementation of what this means, despite our best efforts to explain it to the patient. OBJECTIVE: PHYSICAL EXAMINATION: VITAL SIGNS: Please see below. GENERAL APPEARANCE: laying in bed, easily arousable, comfortable, bit labored breathing and SOB, appears in no acute distress, conversant, expressing desire to go home today HEENT: NCAT, nares patent b/l, moist mucus membranes, EOMI LUNGS: no rales or rhonchi appreciated, slight crackle in RLB, otherwise CTA, a bit diminished bibasilar breath sounds HEART: cannot appreciate a murmur, rubs or clicks, normal s1 and s2, normal sinus ABDOMEN: soft, non-distended, no pain SKIN: intact but dry EXTREMITIES: some +1-+2 swelling b/l LE, otherwise not clubbing or cyanosis appreciated NEUROLOGICAL: no focal deficit appreciated although pt does not seem to fully understand the terms of his DNR or his defibrillator/life vest future plans PSYCHIATRIC: normal affect, appropriate LABORATORY WORK: Please see below. ASSESSMENT AND PLAN: Mr. Matute's blood pressure seems to be stable, his creatine has also bumped a bit today to 1.73 from 1.54 potentially from his Lasix use. His output over the past 24 hours has been net negative of 631 mL. He denied experiencing palpitations, chest pain and states that he is not SOB although he does seem a bit labored when speaking with us this morning, he admits he has been walking with PT and has been doing well with this, denies SOB or dizzyness with walking. Although he could benefit from at least another day in the hospital as there is always a concern when heart failure patients ( Mr Juju's last echo Apr 2016 demonstrated EF 10-15%) are discharged back home and their nutritional diet changes and mistakes in medications are possibly made, we have scheduled a close follow up apt with Dr. Mayes's office in [place] for this coming April 20 at 3 pm and the patient understands that this is a very important appointment for him to make this encounter. The patient understood and stated he would definitely be there. He will need to discuss the need for defibrillator and life vest with Dr. Mayes, as well as have Dr. Mayes review his medications and make proper adjustments based on the patients status at that time. We will discharge him on Amiodarone 400 mg BID, Metoprolol 25 mg q 12h, Torsemide 40-60 QD and Hydralazine 10 mg BID. Addendum MD Brianna: Patient is not optimized but he insisted on discharge. He refused Life Vest - I explained the risk of SCD. He will discuss long-term management with in 2 days. Otherwise recommendation as per note above by . Vital Signs/I&O VS/I&O Vital Signs Date Time Temp Pulse Resp B/P Pulse Ox O2 Delivery O2 Flow Rate FiO2 04/18/16 07:30 96.0 101 22 120/69 97 Room Air I&O- Last 24 Hours up to 6 AM 04/18/16 06:00 Intake Total 865.8 ml Output Total 1775 ml Balance -909.2 ml Laboratory Data 24H LABS Laboratory Tests 2 04/18/16 05:09: Anion Gap 10, White Blood Count 7.9, Red Blood Count 4.69, Hemoglobin 13.4L, Hematocrit 41.4L, Mean Corpuscular Volume 88.2, Mean Corpuscular Hemoglobin 28.5 , Mean Corpuscular Hemoglobin Concent 32.3, Red Cell Distribution Width 14.2, Platelet Count 196, Neutrophils (%) (Auto) 74.0H, Lymphocytes (%) (Auto) 15.2L, Monocytes (%) (Auto) 6.3H, Eosinophils (%) (Auto) 2.1, Basophils (%) (Auto) 0.4 , Neutrophils # (Auto) 5.8, Lymphocytes # (Auto) 1.2L, Monocytes # (Auto) 0.5, Eosinophils # (Auto) 0.2, Basophils # (Auto) 0.0, Blood Urea Nitrogen 38H, Creatinine 1.73H, Sodium Level 135L, Potassium Level 3.6, Chloride Level 98, Carbon Dioxide Level 27, Calcium Level 8.6L, Glomerular Filtration Rate 41.3L, Large Unclassified Cells # 0.2, Large Unclassified Cells % 2.0 CBC/BMP Laboratory Tests 04/18/16 05:09 Calcium Level 8.6 L, Red Blood Count 4.69, Mean Corpuscular Volume 88.2, Mean Corpuscular Hemoglobin 28.5, Mean Corpuscular Hemoglobin Concent 32.3, Red Cell Distribution Width 14.2, Neutrophils (%) (Auto) 74.0 H, Lymphocytes (%) (Auto) 15.2 L, Monocytes (%) (Auto) 6.3 H, Eosinophils (%) (Auto) 2.1, Basophils (%) ( Auto) 0.4, Neutrophils # (Auto) 5.8, Lymphocytes # (Auto) 1.2 L, Monocytes # ( Auto) 0.5, Eosinophils # (Auto) 0.2, Basophils # (Auto) 0.0 Microbiology Microbiology 04/12/16 MRSA Screen - Final, Complete Staph.aureus Methicillin Resis 04/14/16 Urine Culture - Final, Complete Staphylococcus Capitis GME ATTESTATION GME ATTESTATION My preceptor for this patient encounter was physically present in the building during the encounter and was fully available. As needed, all aspects of the patient interview, examination, medical decision making process, and medical care plan development were reviewed and approved by the preceptor. Preceptor is aware and concurs with the plan as stated in the body of this note and will attest to such by his/her cosignature. DORIS PINK DO Apr 18, 2016 09:41 Henry Mendez MD Apr 19, 2016 19:27
--- NOTE | 2016-04-18 19:01 | DSES ---
DATE OF ADMISSION: 04/12/2016 DATE OF DISCHARGE: 04/18/2016 PRIMARY CARE PROVIDER: Dr. Mayes ART THERAPY SPECIALIST: Dr. Mendez, Dr. Albert, Dr. Mcfadden PROCEDURES: None. COMPLICATIONS: None. ADMISSION/DISCHARGE DIAGNOSES: 1. Decompensated systolic congestive heart failure. 2. Atrial fibrillation. 3. Constipation. 4. History of pulmonary nodules. 5. History of aortic valve replacement. 6. History of coronary artery disease. HOSPITALIZATION COURSE: The patient is a 75-year-old male presented to [facility] on April 12, 2016 for palpitation, abdominal pain. In the emergency room the patient was found to have atrial fibrillation with a rate approximately ___cut off . The patient was admitted to PCU. The technical aid was consulted and the patient's amiodarone dose has been adjusted. CT of the abdomen and pelvis was performed to evaluate the patient's abdominal pain. The patient's was given diuretics for his congestive heart failure. The patient's breathing started to improve with diuresis. The patient's heart rate also showed gradual improvement. Cardiac echogram was performed on April 14, 2016, which showed the patient has systolic ejection fraction of 10 to 15%. The idea about Automatic implantable cardioverter-defibrillator (AICD) was being discussed with the patient. On April 15, 2016, the patient was briefly started on the low dose of dobutamine by Dr. Mcfadden and beta tiana is being adjusted. On April 17, 2016, the dobutamine drip was discontinued. In the next few days of the hospitalization stay the life vest and outpatient AICD recommendation is being discussed with the patient multiple times, however, the patient does not demonstrate understanding of the significance of recommendations. On April 18, 2016 the patient's heart rate is being controlled and the patient is able to maintain normal breathing on room air and the patient is medically stable for discharge. The patient is recommended to discuss the medical order of life-sustaining treatment (MOLST) form with the patient's technical aid, Dr. Mayes. It is also recommended the patient to discuss AICD placement with Dr. Mayes in the outpatient followup. OBJECTIVE: VITAL SIGNS: Temperature is 96, pulse 101, respirations 22, blood pressure is 120/69, pulse oximetry is 97% on room air. WBC 7.9, hemoglobin 13.4, hematocrit 41.4, platelet count is 196. Sodium 135, potassium 3.6, chloride 98, carbon dioxide 27, BUN 38, creatinine is 1.73. GFR is 41.3, fasting glucose 312. Calcium 8.6. MRSA screening is positive. Urine culture showed positive for staphylococcus capitis. IMAGING STUDIES: Chest x-ray showed mild cardiomegaly, mild generalized interstitial prominence contributed to by portable technique and likely some underlying interstitial fibrotic scarring. CT of the chest without contrast showed previous median sternotomy. Interstitial changes bilaterally may be secondary to interstitial scarring. Noncalcified 5 cm pulmonary nodules within the left lower lobe. Mural thickening within the gallbladder and intraluminal sludge. Lobular contour lateral midpole left kidney. Trace abdominal ascites. CT abdomen and pelvis without contrast showed small amount of ascites in the perihepatic and pelvic distribution of uncertain etiology. Evidence to suggest prior granulomatous disease. Abdominal ultrasound showed granulomatous calcification in the liver and the spleen. Contracted appearing slightly thick walled gallbladder without stone. No hydronephrosis seen. Renal cortical scarring upper and lower pole left kidney. DISCHARGE MEDICATION: - amiodarone 400 mg by mouth twice a day - hydralazine 10 mg by mouth twice a day - isosorbide mononitrate 30 mg by mouth daily - metoprolol tartrate 25 mg by mouth every 12 hours - nicotine patch transdermal every day - torsemide 40 mg by mouth every day - ProAir two puffs inhalation as needed for shortness of breath - aspirin 81 mg by mouth every day - potassium chloride 10 mg by mouth twice a day - Xarelto 20 mg by mouth every evening DISCHARGE INSTRUCTIONS: Discontinue lines. Discharge home. Activity as tolerated. The patient should followup with Dr. Mayes in two days. Schedule is already made. The patient should discuss with Dr. Mayes regarding to the MOLST form. The patient also to discuss with Dr. Mayes regarding AICD placement. DISCHARGE CONDITION: Fair. Time spent on discharge: Greater than 30 minutes.
== END 2016-04-18 12:39 | disposition home or self-care (01) | DRG 308 ==
LOC: M ED 06:26 → EEVIPCON 12:29 → M ED INP 12:29 → M ICU 23:31 → M PCU 04-17 09:30
PROVIDERS: ADMIT Internal Medicine; ATTEND Internal Medicine
DX: I48.0 Paroxysmal atrial fibrillation (principal); I50.43 Acute on chronic combined systolic (congestive) and diastolic (congestive) heart failure; I13.0 Hypertensive heart and chronic kidney disease with heart failure and stage 1 through stage 4 chronic kidney disease, or unspecified chronic kidney disease; I25.10 Atherosclerotic heart disease of native coronary artery without angina pectoris; J44.9 Chronic obstructive pulmonary disease, unspecified; R14.0 Abdominal distension (gaseous); R91.1 Solitary pulmonary nodule; I73.9 Peripheral vascular disease, unspecified; E78.5 Hyperlipidemia, unspecified; I44.7 Left bundle-branch block, unspecified; I48.92 Unspecified atrial flutter; F17.210 Nicotine dependence, cigarettes, uncomplicated; N18.9 Chronic kidney disease, unspecified; E11.9 Type 2 diabetes mellitus without complications; Z79.01 Long term (current) use of anticoagulants; Z95.5 Presence of coronary angioplasty implant and graft; Z95.2 Presence of prosthetic heart valve; Z79.82 Long term (current) use of aspirin; Z79.899 Other long term (current) drug therapy

== ENCOUNTER 2016-04-27 15:10 | Emergency (ER) | payer MEDICARE, MEDICAID ==
[~2016-04-27 15:10] MED LIST changes: +AMIO0.1T PO; +AMIO20TA PO; +AMIO400T PO; +FURO40TA2 PO; +HYDR10TAB PO; +ISOS30TA4 PO; +METO25TAB PO; +NICO21PAT TD; +TORS20TA2 PO; +XARE20TA PO
[2016-04-27 16:10] LABS: BASO # 0.2 K/mm3 (0.0-0.2); BASO % 1.8 % (0.0-1.0); EOS # 0.2 K/mm3 (0.0-0.50); EOS % 1.8 % (0.0-3.0); LARGE UNSTAINED CELL # 0.2 K/mm3 (0.0-0.4); LARGE UNSTAINED CELL % 1.8 % (0.0-4.0); LYMPH # 1.5 K/mm3 (1.5-4.5); LYMPH % 13.9 % (24.0-44.0); MEAN CORPUSCULAR HEMOGLOBIN 27.2 pg (27.0-33.0); MEAN CORPUSCULAR VOLUME 87.6 fl (80.0-96.0); MONO # 0.5 K/mm3 (0.0-0.8); MONO % 4.7 % (0.0-5.0); NEUTROPHILS # 7.6 K/mm3 (1.8-7.7); NEUTROPHILS % 76.1 % (36.0-66.0); PLATELET COUNT, AUTOMATED 196 k/mm3 (150-450); RED CELL DISTRIBUTION WIDTH 15.4 % (11.5-14.5)
[2016-04-27 16:15] LABS: INR 2.35
[2016-04-27 16:34] LABS: ALBUMIN 3.6 GM/DL (3.2-5.2); ALBUMIN/GLOBULIN RATIO 0.95 (1.00-1.93); BILIRUBIN,DIRECT 0.6 MG/DL (0.0-0.2); BILIRUBIN,TOTAL 1.2 MG/DL (0.2-1.0); CALCIUM LEVEL 8.6 MG/DL (8.8-10.2); CREATININE FOR GFR 1.79 MG/DL (0.70-1.30); GLOMERULAR FILTRATION RATE 39.7 (>42); POTASSIUM SERUM 3.5 MEQ/L (3.5-5.1); TOTAL PROTEIN 7.4 GM/DL (6.4-8.2)
--- NOTE | 2016-04-28 00:34 | EDDOCDS ---
Nurse's Notes [facility] Name: Say Matute Age: 75 yrs Sex: Male : 1940 Arrival Date: 04/27/2016 Time: 15:10 Bed I8 / 16 Private MD: Cornel Mayes Diagnosis: Acute on chronic combined systolic (congestive) and diastolic (congestive) heart failure Presentation: 04/27 15:17 Presenting complaint: Patient states: had lab work done yesterday for pre op going to [facility] have a pacemaker defibrillator implanted next week, called by the cardiology office in [place] told to come to the ED because of abnormal lab results. Adult Sepsis Screening: The patient does not have new or worsening altered mentation. Patient's respiratory rate is less than 22. Systolic blood pressure is greater than 100. Patient has a qSOFA score of 0- Negative Sepsis Screen. Suicide/Homicide risk assessment- the patient denies having any suicidal and/or homicidal ideations and does not present with any other emotional, behavioral or mental health complaints. 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 Transition of care: patient was not received from another setting of care. 15:17 Acuity: BAMBI Level 3 [facility] 15:17 Method Of Arrival: Walkin/Carried/Asstd [facility] Triage Assessment: 15:25 General: Appears in no apparent distress, Behavior is appropriate for age, pleasant. [facility] Pain: Denies pain. Neurological: Level of Consciousness is awake, alert, Oriented to person, place, time. Respiratory: Airway is patent Respiratory effort is even, unlabored. Derm: Skin is pink, warm & dry. Musculoskeletal: No deficits noted. Historical: - Allergies: Qsixxrm-Mhi-Cip Reductase Inhibitors (muscle aches); - Home Meds: 1. Xarelto 20 mg oral tab 1 tab nightly (Last dose: 04/26/2016) 2. amiodarone 100 mg Oral tab 1 tab 2 times per day (Last dose: 04/27/2016 06:00) 3. Potassium Chloride 30 meq Oral 1 cap 2 times per day (Last dose: 04/27/2016 06:00) 4. aspirin 81 mg Oral tab 1 tab once daily (Last dose: 04/27/2016 06:00) 5. senna oral Unknown oral twice a day (Last dose: 04/27/2016 06:00) 6. torsemide 20 mg oral tab 2 tabs once daily (Last dose: 04/27/2016 06:00) 7. Imdur 30 mg Oral Tb24 1 tab once daily (Last dose: 04/27/2016 06:00) 8. Lopressor 25 mg Oral 1 tab 2 times per day (Last dose: 04/27/2016 06:00) 9. hydralazine 10 mg Oral tab 1 tab 2 times per day (Last dose: 04/27/2016 06:00) - PMHx: CAD; COPD; - PSHx: CABG (2003); Stents, Coronary; AAA Repair; heart valve replacement; - Social history: Smoking status: Patient uses tobacco products, heavy tobacco smoker. No barriers to communication noted, The patient speaks fluent Filipino. - Family history: Not pertinent. - : The pt / caregiver states he / she is on anticoagulants: Xarelto Home medication list is obtained from the patient. - Exposure Risk Screening:: None identified. Screenin:14 Infection Control. elp 16:09 Screening information is obtained from the patient. Fall risk: No risks identified. srm Assistance ADL's: requires no assistance with activities of daily living. Abuse/DV Screen: The patient / caregiver reports he/she is: not in a situation that causes fear, pain or injury. Nutritional screenin fluid l;imit. home support is adequate. 18:05 Advance Directives: Currently, there is no health care proxy. There is no active DNR srm order. Assessment: 16:09 General: Appears in no apparent distress, Behavior is appropriate for age, cooperative. srm Neurological: No deficits noted. Cardiovascular: Capillary refill < 3 seconds in bilateral fingers Heart tones present. Respiratory: Airway is patent Respiratory effort is even, unlabored, Breath sounds are clear bilaterally. Derm: No deficits noted. 17:12 Reassessment: Patient appears in no apparent distress at this time. awaiting info srm regarding transfer to [facility]. attempted to call report and was told pt lost his bed and are now going thru transfer center. pt denies being told by MD from [facility] to call ambulance and go directly to [facility] as direct admitt. 17:53 General: sitting in chair. voice no c/o. states he feels fine/ vs stable. awaiting [place] requesting food- will ask MD.. 18:53 General: Appears in no apparent distress, Behavior is appropriate for age, cooperative. dsf Neurological: No deficits noted. Cardiovascular: No deficits noted. Respiratory: No deficits noted. Derm: No deficits noted. 20:41 General: Appears in no apparent distress, Behavior is appropriate for age, cooperative, af2 Pt seated in chair, watching tv. Offers no complaints. . General: Assumed care of pt at this time.. Neurological: Level of Consciousness is awake, alert, obeys commands. Cardiovascular: Rhythm is regular. Respiratory: Airway is patent Respiratory effort is even, unlabored. Derm: Skin is normal. 22:13 General: Appears in no apparent distress, Behavior is appropriate for age, cooperative, af2 seated upright in chair, offers no complaints.. Neurological: Level of Consciousness is awake, alert, obeys commands. Cardiovascular: Rhythm is regular. Respiratory: Airway is patent Respiratory effort is even, unlabored. Derm: Skin is normal. 23:15 General: Appears in no apparent distress, Behavior is appropriate for age, cooperative. af2 Neurological: Level of Consciousness is awake, alert, obeys commands. Respiratory: Airway is patent Respiratory effort is even, unlabored. Derm: Skin is normal. 04/28 00:30 General: Appears in no apparent distress, Behavior is appropriate for age, cooperative. af2 Neurological: Level of Consciousness is awake, alert, obeys commands, Oriented to person, place, time. Cardiovascular: Rhythm is regular. Respiratory: Airway is patent Respiratory effort is even, unlabored. Derm: Skin is normal. Vital Signs: 04/27 15:11 BP 113 / 76; Pulse 96; Resp 16; Pulse Ox 99% ; Weight 85.28 kg; Height 5 ft. 7 in. elp (170.18 cm); 15:54 Temp 97.3(O); dem1 17:53 BP 103 / 64; Pulse 64; Resp 18; Temp 97.4; Pulse Ox 98% ; Pain 0/10; srm 19:17 BP 116 / 58 (auto/); af2 19:19 Pulse 68 MON; Pulse Ox 98% ; af2 19:47 BP 106 / 58 (auto/); af2 19:47 Pulse 68 MON; Pulse Ox 97% ; af2 20:17 BP 102 / 59 (auto/); af2 20:17 Pulse 74 MON; Pulse Ox 97% ; af2 20:47 BP 108 / 63 (auto/); af2 20:47 Pulse 72 MON; Pulse Ox 98% ; af2 21:17 BP 110 / 72 (auto/); af2 21:17 Pulse 68 MON; Pulse Ox 97% ; af2 21:47 BP 105 / 61 (auto/); af2 21:47 Pulse 78 MON; Resp 18; Pulse Ox 97% on R/A; af2 04/28 00:31 BP 124 / 75; Pulse 61; Resp 18 S; Temp 96.6(O); Pulse Ox 97% on R/A; af2 04/27 15:11 Body Mass Index 29.44 (85.28 kg, 170.18 cm) elp Vitals: 04/27 15:11 Log In Time: April 27, 2016 at 15:09. elp ED Course: 15:11 Patient visited by Tatiana Barry PCA. elp 15:11 Cornel Mayes MD is Private Physician. elp 15:11 Patient moved to Waiting elp 15:12 Patient visited by Tatiana Barry PCA. elp 15:12 Patient moved to Pre RCE elp 15:20 Triage Initiated kpj 15:34 Patient moved to I8 / 16 kpj 15:39 Anel Kinsey MD is Attending Physician. sd1 15:39 Patient visited by Anel Kinesy MD. sd1 15:53 EKG done. (by ED staff). Reviewed by Anel Kinsey MD. dem1 15:54 Patient visited by Zully Tatum. dem1 16:09 The patient / caregiver is instructed regarding the plan of care and ED course. Patient srm has correct armband on for positive identification. Placed in gown. Bed in low position. Call light in reach. 16:09 Inserted saline lock: 20 gauge in left antecubital area and blood collected. srm 16:11 Patient visited by Drea Vanegas RN. srm 17:01 [facility] Payment Agreement was scanned into [employer] and attached to record. gjb 17:04 Patient name changed from Say\S\\S\Juju\S\ to Say\S\ \S\Juju. EDMS 17:14 Patient visited by Drea Vanegas RN. srm 17:55 Patient visited by Drea Vanegas RN. srm 18:05 Patient visited by Drea Vanegas RN. srm 18:57 Patient visited by Drea Vanegas RN. srm 18:57 Diet: Patient given regular meal. srm 19:19 Patient visited by Drea Vanegas RN. srm 19:19 lunchroom monitor on. Pulse ox on. NIBP on. srm 19:40 Patient visited by Doreen John RN. dsf 20:42 Patient visited by Nata Nichole RN. af2 22:14 Patient visited by Nata Nichole RN. af2 22:18 Patient visited by Nata Nichole RN. af2 23:06 Patient visited by Nata Nichole RN. af2 23:06 No procedures done that require assistance. af2 Order Results: Lab Order: Amylase; SPEC'M 04/27/16 16:00 Test: AMYLASE; Value: 74; Range: 25-115; Units: U/L; Status: F Lab Order: Basic Metabolic Profile; SPEC'M 04/27/16 16:00 Test: GLUCOSE, FASTING; Value: 191; Range: 83-110; Abnormal: Above high normal; Units: MG/DL; Status: F Test: BLOOD UREA NITROGEN; Value: 31; Range: 7-18; Abnormal: Above high normal; Units: MG/DL; Status: F Test: CREATININE FOR GFR; Value: 1.79; Range: 0.70-1.30; Abnormal: Above high normal; Units: MG/DL; Status: F Test: GLOMERULAR FILTRATION RATE; Value: 39.7; Range: >42; Abnormal: Below low normal; Status: F Test: SODIUM LEVEL; Value: 141; Range: 136-145; Units: MEQ/L; Status: F Test: POTASSIUM SERUM; Value: 3.5; Range: 3.5-5.1; Units: MEQ/L; Status: F Test: CHLORIDE LEVEL; Value: 103; Range: 98-107; Units: MEQ/L; Status: F Test: CARBON DIOXIDE LEVEL; Value: 30; Range: 21-32; Units: MEQ/L; Status: F Test: ANION GAP; Value: 8; Range: 8-16; Units: MEQ/L; Status: F Test: CALCIUM LEVEL; Value: 8.6; Range: 8.8-10.2; Abnormal: Below low normal; Units: MG/DL; Status: F Test Note: ; Units are mL/min/1.73 m2 Chronic Kidney Disease Staging per NKF: Stage I & II GFR >=60 Normal to Mildly Decreased Stage III GFR 30-59 Moderately Decreased Stage IV GFR 15-29 Severely Decreased Stage V GFR <15 Very Little GFR Left ESRD GFR <15 on LEAD TANK MECHANIC Lab Order: CBC with Diff; SPEC'M 04/27/16 16:00 Test: WHITE BLOOD COUNT; Value: 10.0; Range: 4.0-10.0; Units: K/mm3; Status: F Test: RED BLOOD COUNT; Value: 4.67; Range: 4.30-6.10; Units: M/mm3; Status: F Test: HEMOGLOBIN; Value: 12.7; Range: 14.0-18.0; Abnormal: Below low normal; Units: g/dl; Status: F Test: HEMATOCRIT; Value: 40.9; Range: 42.0-52.0; Abnormal: Below low normal; Units: %; Status: F Test: MEAN CORPUSCULAR VOLUME; Value: 87.6; Range: 80.0-96.0; Units: fl; Status: F Test: MEAN CORPUSCULAR HEMOGLOBIN; Value: 27.2; Range: 27.0-33.0; Units: pg; Status: F Test: MEAN CORPUSCULAR HGB CONC; Value: 31.0; Range: 32.0-36.5; Abnormal: Below low normal; Units: g/dl; Status: F Test: RED CELL DISTRIBUTION WIDTH; Value: 15.4; Range: 11.5-14.5; Abnormal: Above high normal; Units: %; Status: F Test: PLATELET COUNT, AUTOMATED; Value: 196; Range: 150-450; Units: k/mm3; Status: F Test: NEUTROPHILS %; Value: 76.1; Range: 36.0-66.0; Abnormal: Above high normal; Units: %; Status: F Test: LYMPH %; Value: 13.9; Range: 24.0-44.0; Abnormal: Below low normal; Units: %; Status: F Test: MONO %; Value: 4.7; Range: 0.0-5.0; Units: %; Status: F Test: EOS %; Value: 1.8; Range: 0.0-3.0; Units: %; Status: F Test: BASO %; Value: 1.8; Range: 0.0-1.0; Abnormal: Above high normal; Units: %; Status: F Test: LARGE UNSTAINED CELL %; Value: 1.8; Range: 0.0-4.0; Units: %; Status: F Test: NEUTROPHILS #; Value: 7.6; Range: 1.8-7.7; Units: K/mm3; Status: F Test: LYMPH #; Value: 1.5; Range: 1.5-4.5; Units: K/mm3; Status: F Test: MONO #; Value: 0.5; Range: 0.0-0.8; Units: K/mm3; Status: F Test: EOS #; Value: 0.2; Range: 0.0-0.50; Units: K/mm3; Status: F Test: BASO #; Value: 0.2; Range: 0.0-0.2; Units: K/mm3; Status: F Test: LARGE UNSTAINED CELL #; Value: 0.2; Range: 0.0-0.4; Units: K/mm3; Status: F Lab Order: Lipase; SPEC' 04/27/16 16:00 Test: LIPASE; Value: 247; Range: 73-393; Units: U/L; Status: F Lab Order: Liver Profile; SPEC' 04/27/16 16:00 Test: AST/SGOT; Value: 25; Range: 15-37; Units: U/L; Status: F Test: ALT/SGPT; Value: 25; Range: 12-78; Units: U/L; Status: F Test: ALKALINE PHOSPHATASE; Value: 114; Range: 45-117; Units: U/L; Status: F Test: BILIRUBIN,TOTAL; Value: 1.2; Range: 0.2-1.0; Abnormal: Above high normal; Units: MG/DL; Status: F Test: BILIRUBIN,DIRECT; Value: 0.6; Range: 0.0-0.2; Abnormal: Above high normal; Units: MG/DL; Status: F Test: TOTAL PROTEIN; Value: 7.4; Range: 6.4-8.2; Units: GM/DL; Status: F Test: ALBUMIN; Value: 3.6; Range: 3.2-5.2; Units: GM/DL; Status: F Test: ALBUMIN/GLOBULIN RATIO; Value: 0.95; Range: 1.00-1.93; Abnormal: Below low normal; Status: F Lab Order: Prothrombin Time Profile\E\INR; SPEC'M 04/27/16 16:00 Test: PROTHROMBIN TIME; Value: 25.8; Range: 12.3-14.5; Abnormal: Above high normal; Units: SECONDS; Status: F Test: INR; Value: 2.35; Status: F Test Note: ; THERAPUTIC HUMAN INR VALUES INDICATIONS NORMAL RANGES PROPHYLAXIS/TREATMENT OF: VENOUS THROMBOSIS 2.0-3.0 PULMONARY EMBOLISM 2.0-3.0 PREVENTION OF SYSTEMIC EMBOLISM FROM: TISSUE HEART VALVES 2.0-3.0 ACUTE MYOCARDIAL INFARCTION 2.0-3.0 VALVULAR HEART DISEASE 2.0-3.0 ATRIAL FIBRILLATION 2.0-3.0 MECHANICAL VALVES(HIGH RISK) 2.5-3.5 RECURRENT MYOCARDIAL INFARCTION 2.5-3.5 Outcome: 16:46 ER care complete, transfer ordered by Provider. sd1 23:05 Admission hand-off: Other: Héctor Rubin RN Cardio Pumonary ICU. . af2 23:06 Discharge Assessment: Patient awake, alert and oriented x 3. No cognitive and/or af2 functional deficits noted. Patient verbalized understanding of disposition instructions. patient administered narcotics - no. The following High Risk Discharge criteria are identified: None. Transferred to [facility]. Condition: stable. No special radiology studies were completed. Property :Personal belongings accompany Pt. 04/28 00:31 [facility] to accompanying personnel Amor Ruiz and Dante Guerrero. 00:33 Patient left the ED. af2 Signatures: Dispatcher [employer] EDMS Anel Kinsey MD MD sd1 Mayte Guillory RN RN kpj Michelson, Staci, RN RN srm Fuller, Desiree, RN RN dsf Mack, Demeishia dem1 Tatiana Barry, BLASTING CONTRACT MAN BLASTING CONTRACT MAN domingop Nata Nichole,RN RN af2 Mimi Harris Corrections: (The following items were deleted from the chart) 04/27 15:32 15:25 Home Meds: Lasix 40 mg Oral tab 1 tab 2 times per day (Last Dose: 04/27/2016 [facility] 06:00); [facility] 18:05 16:09 Nutritional screening: No deficits noted. srm srm MTDD
--- NOTE | 2016-04-28 00:34 | EDDOCDS ---
Physician Documentation [facility] Name: Say Matute Age: 75 yrs Sex: Male : 1940 Arrival Date: 04/27/2016 Time: 15:10 Bed I8 / 16 Private MD: Cornel Mayes Disposition: 04/27/16 16:46 Transfer ordered to [facility]. Diagnosis is Acute on chronic combined systolic (congestive) and diastolic (congestive) heart failure. - Reason for transfer: Higher level of care. - Accepting physician is Dr. Christensen. - Condition is Stable. - Problem is chronic. - Symptoms are unchanged. Historical: - Allergies: Ugykjqw-Dpr-Mvc Reductase Inhibitors (muscle aches); - Home Meds: 1. Xarelto 20 mg oral tab 1 tab nightly (Last dose: 04/26/2016) 2. amiodarone 100 mg Oral tab 1 tab 2 times per day (Last dose: 04/27/2016 06:00) 3. Potassium Chloride 30 meq Oral 1 cap 2 times per day (Last dose: 04/27/2016 06:00) 4. aspirin 81 mg Oral tab 1 tab once daily (Last dose: 04/27/2016 06:00) 5. senna oral Unknown oral twice a day (Last dose: 04/27/2016 06:00) 6. torsemide 20 mg oral tab 2 tabs once daily (Last dose: 04/27/2016 06:00) 7. Imdur 30 mg Oral Tb24 1 tab once daily (Last dose: 04/27/2016 06:00) 8. Lopressor 25 mg Oral 1 tab 2 times per day (Last dose: 04/27/2016 06:00) 9. hydralazine 10 mg Oral tab 1 tab 2 times per day (Last dose: 04/27/2016 06:00) - PMHx: CAD; COPD; - PSHx: CABG (2003); Stents, Coronary; AAA Repair; heart valve replacement; - Social history: Smoking status: Patient uses tobacco products, heavy tobacco smoker. No barriers to communication noted, The patient speaks fluent Sri Lankan. - Family history: Not pertinent. - : The pt / caregiver states he / she is on anticoagulants: Xarelto Home medication list is obtained from the patient. - Exposure Risk Screening:: None identified. Vital Signs: 04/27 15:11 BP 113 / 76; Pulse 96; Resp 16; Pulse Ox 99% ; Weight 85.28 kg / 188.01 lbs; Height 5 elp ft. 7 in. (170.18 cm); 15:54 Temp 97.3(O); dem1 17:53 BP 103 / 64; Pulse 64; Resp 18; Temp 97.4; Pulse Ox 98% ; Pain 0/10; srm 19:17 BP 116 / 58 (auto/); af2 19:19 Pulse 68 MON; Pulse Ox 98% ; af2 19:47 BP 106 / 58 (auto/); af2 19:47 Pulse 68 MON; Pulse Ox 97% ; af2 20:17 BP 102 / 59 (auto/); af2 20:17 Pulse 74 MON; Pulse Ox 97% ; af2 20:47 BP 108 / 63 (auto/); af2 20:47 Pulse 72 MON; Pulse Ox 98% ; af2 21:17 BP 110 / 72 (auto/); af2 21:17 Pulse 68 MON; Pulse Ox 97% ; af2 21:47 BP 105 / 61 (auto/); af2 21:47 Pulse 78 MON; Resp 18; Pulse Ox 97% on R/A; af2 04/28 00:31 BP 124 / 75; Pulse 61; Resp 18 S; Temp 96.6(O); Pulse Ox 97% on R/A; af2 04/27 15:11 Body Mass Index 29.44 (85.28 kg, 170.18 cm) elp MDM: 04/27 15:43 IV Saline Lock ordered. sd1 15:45 Amylase Ordered. EDMS 15:45 Basic Metabolic Profile Ordered. EDMS 15:45 CBC with Diff Ordered. EDMS 15:45 Lipase Ordered. EDMS 15:45 Liver Profile Ordered. EDMS 15:45 Prothrombin Time Profile\E\INR Ordered. EDMS 15:45 ECG WITH READING ER PHYS+CARDIAG ordered. EDMS 16:39 Basic Metabolic Profile Reviewed. sd1 16:39 CBC with Diff Reviewed. sd1 16:39 Liver Profile Reviewed. sd1 16:39 Prothrombin Time Profile\E\INR Reviewed. sd1 16:39 Amylase Reviewed. sd1 16:39 Lipase Reviewed. sd1 17:01 [facility] Payment Agreement was scanned into [employer] and attached to record. gjb 17:01 Financial registration complete. gjb 18:02 REGULAR+DIET ordered. EDMS 19:01 Corporate Fitness Program Coordinator/Pulse Ox/q 30 min VS ordered. sd1 19:01 Misc. Nursing Order ordered. sd1 Signatures: Dispatcher [employer] EDAnel Pringle MD MD sd1 Mayte Guillory RN RN kpj Drea Vanegas RN RN [facility] Nata Nichole RN RN af2 Mimi Harris The chart was reviewed and I authenticate all verbal orders and agree with the evaluation and treatment provided.Corrections: (The following items were deleted from the chart) 15:32 15:25 Home Meds: Lasix 40 mg Oral tab 1 tab 2 times per day (Last Dose: 04/27/2016 [facility] 06:00); [facility] Attachments: 17:01 [facility] Payment Agreement harpreet MTDD
--- NOTE | 2016-04-28 07:27 | ECGEPIP ---
Stationary ECG Study [facility] - ED Test Date: 2016-04-27 Pat Name: PATRICIA VELASQUEZ Department: Room: - Gender: M Retail Manager: caroline : 1940 Requested By: Anel Kinsey Order Number: [id number] Reading MD: Anel Kinsey Measurements Intervals [place] Rate: 76 P: [place]: 0 QRS: 142 QRSD: 191 T: -38 QT: 484 QTc: 547 Interpretive Statements ATRIAL FIBRILLATION WITH ABERRANT CONDUCTION OR VENTRICULAR PREMATURE COMPLEXES MARKED RIGHT AXIS DEVIATION INTRAVENTRICULAR CONDUCTION DELAY Electronically Signed On 04-28-2016 7:26:46 EST by Anel Kinsey
--- NOTE | 2016-04-30 01:34 | EDDOCDS ---
Physician Documentation [facility] Name: Say Matute Age: 75 yrs Sex: Male : 1940 Arrival Date: 04/27/2016 Time: 15:10 Bed I8 / 16 Private MD: Cornel Mayes Disposition: 04/27/16 16:46 Transfer ordered to [facility]. Diagnosis is Acute on chronic combined systolic (congestive) and diastolic (congestive) heart failure. - Reason for transfer: Higher level of care. - Accepting physician is Dr. Christensen. - Condition is Stable. - Problem is chronic. - Symptoms are unchanged. Historical: - Allergies: Efivpdu-Khk-Byo Reductase Inhibitors (muscle aches); - Home Meds: 1. Xarelto 20 mg oral tab 1 tab nightly (Last dose: 04/26/2016) 2. amiodarone 100 mg Oral tab 1 tab 2 times per day (Last dose: 04/27/2016 06:00) 3. Potassium Chloride 30 meq Oral 1 cap 2 times per day (Last dose: 04/27/2016 06:00) 4. aspirin 81 mg Oral tab 1 tab once daily (Last dose: 04/27/2016 06:00) 5. senna oral Unknown oral twice a day (Last dose: 04/27/2016 06:00) 6. torsemide 20 mg oral tab 2 tabs once daily (Last dose: 04/27/2016 06:00) 7. Imdur 30 mg Oral Tb24 1 tab once daily (Last dose: 04/27/2016 06:00) 8. Lopressor 25 mg Oral 1 tab 2 times per day (Last dose: 04/27/2016 06:00) 9. hydralazine 10 mg Oral tab 1 tab 2 times per day (Last dose: 04/27/2016 06:00) - PMHx: CAD; COPD; - PSHx: CABG (2003); Stents, Coronary; AAA Repair; heart valve replacement; - Social history: Smoking status: Patient uses tobacco products, heavy tobacco smoker. No barriers to communication noted, The patient speaks fluent Barbadian. - Family history: Not pertinent. - : The pt / caregiver states he / she is on anticoagulants: Xarelto Home medication list is obtained from the patient. - Exposure Risk Screening:: None identified. Vital Signs: 04/27 15:11 BP 113 / 76; Pulse 96; Resp 16; Pulse Ox 99% ; Weight 85.28 kg / 188.01 lbs; Height 5 elp ft. 7 in. (170.18 cm); 15:54 Temp 97.3(O); dem1 17:53 BP 103 / 64; Pulse 64; Resp 18; Temp 97.4; Pulse Ox 98% ; Pain 0/10; srm 19:17 BP 116 / 58 (auto/); af2 19:19 Pulse 68 MON; Pulse Ox 98% ; af2 19:47 BP 106 / 58 (auto/); af2 19:47 Pulse 68 MON; Pulse Ox 97% ; af2 20:17 BP 102 / 59 (auto/); af2 20:17 Pulse 74 MON; Pulse Ox 97% ; af2 20:47 BP 108 / 63 (auto/); af2 20:47 Pulse 72 MON; Pulse Ox 98% ; af2 21:17 BP 110 / 72 (auto/); af2 21:17 Pulse 68 MON; Pulse Ox 97% ; af2 21:47 BP 105 / 61 (auto/); af2 21:47 Pulse 78 MON; Resp 18; Pulse Ox 97% on R/A; af2 04/28 00:31 BP 124 / 75; Pulse 61; Resp 18 S; Temp 96.6(O); Pulse Ox 97% on R/A; af2 04/27 15:11 Body Mass Index 29.44 (85.28 kg, 170.18 cm) elp MDM: 04/27 15:43 IV Saline Lock ordered. sd1 15:45 Amylase Ordered. EDMS 15:45 Basic Metabolic Profile Ordered. EDMS 15:45 CBC with Diff Ordered. EDMS 15:45 Lipase Ordered. EDMS 15:45 Liver Profile Ordered. EDMS 15:45 Prothrombin Time Profile\E\INR Ordered. EDMS 15:45 ECG WITH READING ER PHYS+CARDIAG ordered. EDMS 16:39 Basic Metabolic Profile Reviewed. sd1 16:39 CBC with Diff Reviewed. sd1 16:39 Liver Profile Reviewed. sd1 16:39 Prothrombin Time Profile\E\INR Reviewed. sd1 16:39 Amylase Reviewed. sd1 16:39 Lipase Reviewed. sd1 17:01 [facility] Payment Agreement was scanned into [employer] and attached to record. gjb 17:01 Financial registration complete. gjb 18:02 REGULAR+DIET ordered. EDMS 19:01 Agricultural Education Teacher/Pulse Ox/q 30 min VS ordered. sd1 19:01 Misc. Nursing Order ordered. sd1 04/28 09:31 T-Sheet-- Draft Copy was scanned into [employer] and attached to record. gb 09:31 ECG/EKG was scanned into [employer] and attached to record. gb Signatures: Dispatcher [employer] EDAnel Pringle MD MD sd1 Mayte Guillory RN RN [facility] Drea Vanegas RN RN srm [place], Annalisa, Reg Reg gb Nata NicholeRN RN af2 Mimi Harris The chart was reviewed and I authenticate all verbal orders and agree with the evaluation and treatment provided.Corrections: (The following items were deleted from the chart) 04/27 15:32 15:25 Home Meds: Lasix 40 mg Oral tab 1 tab 2 times per day (Last Dose: 04/27/2016 [facility] 06:00); [facility] Attachments: 17:01 [facility] Payment Agreement gj 04/28 09:31 T-Sheet-- Draft Copy gb 09:31 ECG/EKG gb Chart Complete MTDD
--- NOTE | 2016-04-30 01:34 | EDDOCDS ---
Nurse's Notes [facility] Name: Patricia Velasquez Age: 75 yrs Sex: Male : 1940 Arrival Date: 04/27/2016 Time: 15:10 Bed I8 / 16 Private MD: Cornel Mayes Diagnosis: Acute on chronic combined systolic (congestive) and diastolic (congestive) heart failure Presentation: 04/27 15:17 Presenting complaint: Patient states: had lab work done yesterday for pre op going to [facility] have a pacemaker defibrillator implanted next week, called by the cardiology office in [place] told to come to the ED because of abnormal lab results. Adult Sepsis Screening: The patient does not have new or worsening altered mentation. Patient's respiratory rate is less than 22. Systolic blood pressure is greater than 100. Patient has a qSOFA score of 0- Negative Sepsis Screen. Suicide/Homicide risk assessment- the patient denies having any suicidal and/or homicidal ideations and does not present with any other emotional, behavioral or mental health complaints. Status: Patient is not a financial services manager or dependent. Transition of care: patient was not received from another setting of care. 15:17 Acuity: BAMBI Level 3 [facility] 15:17 Method Of Arrival: Walkin/Carried/Asstd [facility] Triage Assessment: 15:25 General: Appears in no apparent distress, Behavior is appropriate for age, pleasant. [facility] Pain: Denies pain. Neurological: Level of Consciousness is awake, alert, Oriented to person, place, time. Respiratory: Airway is patent Respiratory effort is even, unlabored. Derm: Skin is pink, warm & dry. Musculoskeletal: No deficits noted. Historical: - Allergies: Qptywmi-Huo-Vrp Reductase Inhibitors (muscle aches); - Home Meds: 1. Xarelto 20 mg oral tab 1 tab nightly (Last dose: 04/26/2016) 2. amiodarone 100 mg Oral tab 1 tab 2 times per day (Last dose: 04/27/2016 06:00) 3. Potassium Chloride 30 meq Oral 1 cap 2 times per day (Last dose: 04/27/2016 06:00) 4. aspirin 81 mg Oral tab 1 tab once daily (Last dose: 04/27/2016 06:00) 5. senna oral Unknown oral twice a day (Last dose: 04/27/2016 06:00) 6. torsemide 20 mg oral tab 2 tabs once daily (Last dose: 04/27/2016 06:00) 7. Imdur 30 mg Oral Tb24 1 tab once daily (Last dose: 04/27/2016 06:00) 8. Lopressor 25 mg Oral 1 tab 2 times per day (Last dose: 04/27/2016 06:00) 9. hydralazine 10 mg Oral tab 1 tab 2 times per day (Last dose: 04/27/2016 06:00) - PMHx: CAD; COPD; - PSHx: CABG (2003); Stents, Coronary; AAA Repair; heart valve replacement; - Social history: Smoking status: Patient uses tobacco products, heavy tobacco smoker. No barriers to communication noted, The patient speaks fluent Belizean. - Family history: Not pertinent. - : The pt / caregiver states he / she is on anticoagulants: Xarelto Home medication list is obtained from the patient. - Exposure Risk Screening:: None identified. Screenin:14 Infection Control. elp 16:09 Screening information is obtained from the patient. Fall risk: No risks identified. srm Assistance ADL's: requires no assistance with activities of daily living. Abuse/DV Screen: The patient / caregiver reports he/she is: not in a situation that causes fear, pain or injury. Nutritional screenin fluid l;imit. home support is adequate. 18:05 Advance Directives: Currently, there is no health care proxy. There is no active DNR srm order. Assessment: 16:09 General: Appears in no apparent distress, Behavior is appropriate for age, cooperative. srm Neurological: No deficits noted. Cardiovascular: Capillary refill < 3 seconds in bilateral fingers Heart tones present. Respiratory: Airway is patent Respiratory effort is even, unlabored, Breath sounds are clear bilaterally. Derm: No deficits noted. 17:12 Reassessment: Patient appears in no apparent distress at this time. awaiting info srm regarding transfer to [facility]. attempted to call report and was told pt lost his bed and are now going thru transfer center. pt denies being told by MD from [facility] to call ambulance and go directly to [facility] as direct admitt. 17:53 General: sitting in chair. voice no c/o. states he feels fine/ vs stable. awaiting [place] [facility] requesting food- will ask MD.. 18:53 General: Appears in no apparent distress, Behavior is appropriate for age, cooperative. dsf Neurological: No deficits noted. Cardiovascular: No deficits noted. Respiratory: No deficits noted. Derm: No deficits noted. 20:41 General: Appears in no apparent distress, Behavior is appropriate for age, cooperative, af2 Pt seated in chair, watching tv. Offers no complaints. . General: Assumed care of pt at this time.. Neurological: Level of Consciousness is awake, alert, obeys commands. Cardiovascular: Rhythm is regular. Respiratory: Airway is patent Respiratory effort is even, unlabored. Derm: Skin is normal. 22:13 General: Appears in no apparent distress, Behavior is appropriate for age, cooperative, af2 seated upright in chair, offers no complaints.. Neurological: Level of Consciousness is awake, alert, obeys commands. Cardiovascular: Rhythm is regular. Respiratory: Airway is patent Respiratory effort is even, unlabored. Derm: Skin is normal. 23:15 General: Appears in no apparent distress, Behavior is appropriate for age, cooperative. af2 Neurological: Level of Consciousness is awake, alert, obeys commands. Respiratory: Airway is patent Respiratory effort is even, unlabored. Derm: Skin is normal. 04/28 00:30 General: Appears in no apparent distress, Behavior is appropriate for age, cooperative. af2 Neurological: Level of Consciousness is awake, alert, obeys commands, Oriented to person, place, time. Cardiovascular: Rhythm is regular. Respiratory: Airway is patent Respiratory effort is even, unlabored. Derm: Skin is normal. Vital Signs: 04/27 15:11 BP 113 / 76; Pulse 96; Resp 16; Pulse Ox 99% ; Weight 85.28 kg; Height 5 ft. 7 in. elp (170.18 cm); 15:54 Temp 97.3(O); dem1 17:53 BP 103 / 64; Pulse 64; Resp 18; Temp 97.4; Pulse Ox 98% ; Pain 0/10; srm 19:17 BP 116 / 58 (auto/); af2 19:19 Pulse 68 MON; Pulse Ox 98% ; af2 19:47 BP 106 / 58 (auto/); af2 19:47 Pulse 68 MON; Pulse Ox 97% ; af2 20:17 BP 102 / 59 (auto/); af2 20:17 Pulse 74 MON; Pulse Ox 97% ; af2 20:47 BP 108 / 63 (auto/); af2 20:47 Pulse 72 MON; Pulse Ox 98% ; af2 21:17 BP 110 / 72 (auto/); af2 21:17 Pulse 68 MON; Pulse Ox 97% ; af2 21:47 BP 105 / 61 (auto/); af2 21:47 Pulse 78 MON; Resp 18; Pulse Ox 97% on R/A; af2 04/28 00:31 BP 124 / 75; Pulse 61; Resp 18 S; Temp 96.6(O); Pulse Ox 97% on R/A; af2 04/27 15:11 Body Mass Index 29.44 (85.28 kg, 170.18 cm) elp Vitals: 04/27 15:11 Log In Time: April 27, 2016 at 15:09. elp ED Course: 15:11 Patient visited by Tatiana Barry PCA. elp 15:11 Cornel Mayes MD is Private Physician. elp 15:11 Patient moved to Waiting elp 15:12 Patient visited by Tatiana Barry PCA. elp 15:12 Patient moved to Pre RCE elp 15:20 Triage Initiated kpj 15:34 Patient moved to I8 / 16 kpj 15:39 Anel Kinsey MD is Attending Physician. sd1 15:39 Patient visited by Anel Kinsey MD. sd1 15:53 EKG done. (by ED staff). Reviewed by Anel Kinsey MD. dem1 15:54 Patient visited by Zully Tatum. dem1 16:09 The patient / caregiver is instructed regarding the plan of care and ED course. Patient srm has correct armband on for positive identification. Placed in gown. Bed in low position. Call light in reach. 16:09 Inserted saline lock: 20 gauge in left antecubital area and blood collected. srm 16:11 Patient visited by Drea Vanegas RN. srm 17:01 [facility] Payment Agreement was scanned into [employer] and attached to record. gjb 17:04 Patient name changed from Patricia\S\\S\Juju\S\ to Patricia\S\ \S\Juju. EDMS 17:14 Patient visited by Drea Vanegas RN. srm 17:55 Patient visited by Drea Vanegas RN. srm 18:05 Patient visited by Drea Vanegas RN. srm 18:57 Patient visited by Drea Vanegas RN. srm 18:57 Diet: Patient given regular meal. srm 19:19 Patient visited by Drea Vanegas RN. 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 Pulse ox on. NIBP on. srm 19:40 Patient visited by Doreen John RN. dsf 20:42 Patient visited by Nata Nichole RN. af2 22:14 Patient visited by Nata Nichole RN. af2 22:18 Patient visited by Nata Nichole RN. af2 23:06 Patient visited by Nata Nichole RN. af2 23:06 No procedures done that require assistance. af2 04/28 07:52 EKG-ADULT Returned. EDMS 09:31 T-Sheet-- Draft Copy was scanned into [employer] and attached to record. gb 09:31 ECG/EKG was scanned into [employer] and attached to record. gb Order Results: Lab Order: Amylase; SPEC'M 04/27/16 16:00 Test: AMYLASE; Value: 74; Range: 25-115; Units: U/L; Status: F Lab Order: Basic Metabolic Profile; SPEC'M 04/27/16 16:00 Test: GLUCOSE, FASTING; Value: 191; Range: 83-110; Abnormal: Above high normal; Units: MG/DL; Status: F Test: BLOOD UREA NITROGEN; Value: 31; Range: 7-18; Abnormal: Above high normal; Units: MG/DL; Status: F Test: CREATININE FOR GFR; Value: 1.79; Range: 0.70-1.30; Abnormal: Above high normal; Units: MG/DL; Status: F Test: GLOMERULAR FILTRATION RATE; Value: 39.7; Range: >42; Abnormal: Below low normal; Status: F Test: SODIUM LEVEL; Value: 141; Range: 136-145; Units: MEQ/L; Status: F Test: POTASSIUM SERUM; Value: 3.5; Range: 3.5-5.1; Units: MEQ/L; Status: F Test: CHLORIDE LEVEL; Value: 103; Range: 98-107; Units: MEQ/L; Status: F Test: CARBON DIOXIDE LEVEL; Value: 30; Range: 21-32; Units: MEQ/L; Status: F Test: ANION GAP; Value: 8; Range: 8-16; Units: MEQ/L; Status: F Test: CALCIUM LEVEL; Value: 8.6; Range: 8.8-10.2; Abnormal: Below low normal; Units: MG/DL; Status: F Test Note: ; Units are mL/min/1.73 m2 Chronic Kidney Disease Staging per NKF: Stage I & II GFR >=60 Normal to Mildly Decreased Stage III GFR 30-59 Moderately Decreased Stage IV GFR 15-29 Severely Decreased Stage V GFR <15 Very Little GFR Left ESRD GFR <15 on INTERACTIVE PROJECT MANAGER Lab Order: CBC with Diff; SPEC'M 04/27/16 16:00 Test: WHITE BLOOD COUNT; Value: 10.0; Range: 4.0-10.0; Units: K/mm3; Status: F Test: RED BLOOD COUNT; Value: 4.67; Range: 4.30-6.10; Units: M/mm3; Status: F Test: HEMOGLOBIN; Value: 12.7; Range: 14.0-18.0; Abnormal: Below low normal; Units: g/dl; Status: F Test: HEMATOCRIT; Value: 40.9; Range: 42.0-52.0; Abnormal: Below low normal; Units: %; Status: F Test: MEAN CORPUSCULAR VOLUME; Value: 87.6; Range: 80.0-96.0; Units: fl; Status: F Test: MEAN CORPUSCULAR HEMOGLOBIN; Value: 27.2; Range: 27.0-33.0; Units: pg; Status: F Test: MEAN CORPUSCULAR HGB CONC; Value: 31.0; Range: 32.0-36.5; Abnormal: Below low normal; Units: g/dl; Status: F Test: RED CELL DISTRIBUTION WIDTH; Value: 15.4; Range: 11.5-14.5; Abnormal: Above high normal; Units: %; Status: F Test: PLATELET COUNT, AUTOMATED; Value: 196; Range: 150-450; Units: k/mm3; Status: F Test: NEUTROPHILS %; Value: 76.1; Range: 36.0-66.0; Abnormal: Above high normal; Units: %; Status: F Test: LYMPH %; Value: 13.9; Range: 24.0-44.0; Abnormal: Below low normal; Units: %; Status: F Test: MONO %; Value: 4.7; Range: 0.0-5.0; Units: %; Status: F Test: EOS %; Value: 1.8; Range: 0.0-3.0; Units: %; Status: F Test: BASO %; Value: 1.8; Range: 0.0-1.0; Abnormal: Above high normal; Units: %; Status: F Test: LARGE UNSTAINED CELL %; Value: 1.8; Range: 0.0-4.0; Units: %; Status: F Test: NEUTROPHILS #; Value: 7.6; Range: 1.8-7.7; Units: K/mm3; Status: F Test: LYMPH #; Value: 1.5; Range: 1.5-4.5; Units: K/mm3; Status: F Test: MONO #; Value: 0.5; Range: 0.0-0.8; Units: K/mm3; Status: F Test: EOS #; Value: 0.2; Range: 0.0-0.50; Units: K/mm3; Status: F Test: BASO #; Value: 0.2; Range: 0.0-0.2; Units: K/mm3; Status: F Test: LARGE UNSTAINED CELL #; Value: 0.2; Range: 0.0-0.4; Units: K/mm3; Status: F Lab Order: Lipase; SPEC'M 04/27/16 16:00 Test: LIPASE; Value: 247; Range: 73-393; Units: U/L; Status: F Lab Order: Liver Profile; SPEC'M 04/27/16 16:00 Test: AST/SGOT; Value: 25; Range: 15-37; Units: U/L; Status: F Test: ALT/SGPT; Value: 25; Range: 12-78; Units: U/L; Status: F Test: ALKALINE PHOSPHATASE; Value: 114; Range: 45-117; Units: U/L; Status: F Test: BILIRUBIN,TOTAL; Value: 1.2; Range: 0.2-1.0; Abnormal: Above high normal; Units: MG/DL; Status: F Test: BILIRUBIN,DIRECT; Value: 0.6; Range: 0.0-0.2; Abnormal: Above high normal; Units: MG/DL; Status: F Test: TOTAL PROTEIN; Value: 7.4; Range: 6.4-8.2; Units: GM/DL; Status: F Test: ALBUMIN; Value: 3.6; Range: 3.2-5.2; Units: GM/DL; Status: F Test: ALBUMIN/GLOBULIN RATIO; Value: 0.95; Range: 1.00-1.93; Abnormal: Below low normal; Status: F Lab Order: Prothrombin Time Profile\E\INR; SPEC'M 04/27/16 16:00 Test: PROTHROMBIN TIME; Value: 25.8; Range: 12.3-14.5; Abnormal: Above high normal; Units: SECONDS; Status: F Test: INR; Value: 2.35; Status: F Test Note: ; THERAPUTIC HUMAN INR VALUES INDICATIONS NORMAL RANGES PROPHYLAXIS/TREATMENT OF: VENOUS THROMBOSIS 2.0-3.0 PULMONARY EMBOLISM 2.0-3.0 PREVENTION OF SYSTEMIC EMBOLISM FROM: TISSUE HEART VALVES 2.0-3.0 ACUTE MYOCARDIAL INFARCTION 2.0-3.0 VALVULAR HEART DISEASE 2.0-3.0 ATRIAL FIBRILLATION 2.0-3.0 MECHANICAL VALVES(HIGH RISK) 2.5-3.5 RECURRENT MYOCARDIAL INFARCTION 2.5-3.5 Radiology Order: EKG-ADULT Test: EKG-ADULT REASON FOR EXAMINATION: weakness; Stationary ECG Study; [facility] - ED; ; Test Date: 2016-04-27; Pat Name: PATRICIA VELASQUEZ Department:; Room: -; 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 sd1 23:05 Admission hand-off: Other: Héctor Rubin, LETY Cardio Pumonary ICU. . af2 23:06 Discharge Assessment: Patient awake, alert and oriented x 3. No cognitive and/or af2 functional deficits noted. Patient verbalized understanding of disposition instructions. patient administered narcotics - no. The following High Risk Discharge criteria are identified: None. Transferred to [facility]. Condition: stable. No special radiology studies were completed. Property :Personal belongings accompany Pt. 04/28 00:31 [address] EMS ground [facility] ambulance report to accompanying personnel Amor Ruiz and Dante Guerrero. 00:33 Patient left the ED. af2 Signatures: Dispatcher [employer] EDMS Anel Kinsey MD MD sd1 Mayte Guillory RN RN [facility] Drea Vanegas RN RN srm Annalisa Haynes, Reg Reg Doreen Urias,RN RN isabellaf Zully Tatum dem1 Tatiana Barry, RADIOLOGY TRANSCRIPTIONIST RADIOLOGY TRANSCRIPTIONIST Nata CarvajalRN RN af2 Mimi Harris Corrections: (The following items were deleted from the chart) 04/27 15:32 15:25 Home Meds: Lasix 40 mg Oral tab 1 tab 2 times per day (Last Dose: 04/27/2016 [facility] 06:00); [facility] 18:05 16:09 Nutritional screening: No deficits noted. srm srm Chart Complete MTDD
--- NOTE | 2016-04-30 01:34 | EDDOCDS ---
Physician Documentation [facility] Name: Say Matute Age: 75 yrs Sex: Male : 1940 Arrival Date: 04/27/2016 Time: 15:10 Bed I8 / 16 Private MD: Cornel Mayes Disposition: 04/27/16 16:46 Transfer ordered to [facility]. Diagnosis is Acute on chronic combined systolic (congestive) and diastolic (congestive) heart failure. - Reason for transfer: Higher level of care. - Accepting physician is Dr. Christensen. - Condition is Stable. - Problem is chronic. - Symptoms are unchanged. Historical: - Allergies: Xkoaeyl-Kst-Pwz Reductase Inhibitors (muscle aches); - Home Meds: 1. Xarelto 20 mg oral tab 1 tab nightly (Last dose: 04/26/2016) 2. amiodarone 100 mg Oral tab 1 tab 2 times per day (Last dose: 04/27/2016 06:00) 3. Potassium Chloride 30 meq Oral 1 cap 2 times per day (Last dose: 04/27/2016 06:00) 4. aspirin 81 mg Oral tab 1 tab once daily (Last dose: 04/27/2016 06:00) 5. senna oral Unknown oral twice a day (Last dose: 04/27/2016 06:00) 6. torsemide 20 mg oral tab 2 tabs once daily (Last dose: 04/27/2016 06:00) 7. Imdur 30 mg Oral Tb24 1 tab once daily (Last dose: 04/27/2016 06:00) 8. Lopressor 25 mg Oral 1 tab 2 times per day (Last dose: 04/27/2016 06:00) 9. hydralazine 10 mg Oral tab 1 tab 2 times per day (Last dose: 04/27/2016 06:00) - PMHx: CAD; COPD; - PSHx: CABG (2003); Stents, Coronary; AAA Repair; heart valve replacement; - Social history: Smoking status: Patient uses tobacco products, heavy tobacco smoker. No barriers to communication noted, The patient speaks fluent Slovak. - Family history: Not pertinent. - : The pt / caregiver states he / she is on anticoagulants: Xarelto Home medication list is obtained from the patient. - Exposure Risk Screening:: None identified. Vital Signs: 04/27 15:11 BP 113 / 76; Pulse 96; Resp 16; Pulse Ox 99% ; Weight 85.28 kg / 188.01 lbs; Height 5 elp ft. 7 in. (170.18 cm); 15:54 Temp 97.3(O); dem1 17:53 BP 103 / 64; Pulse 64; Resp 18; Temp 97.4; Pulse Ox 98% ; Pain 0/10; srm 19:17 BP 116 / 58 (auto/); af2 19:19 Pulse 68 MON; Pulse Ox 98% ; af2 19:47 BP 106 / 58 (auto/); af2 19:47 Pulse 68 MON; Pulse Ox 97% ; af2 20:17 BP 102 / 59 (auto/); af2 20:17 Pulse 74 MON; Pulse Ox 97% ; af2 20:47 BP 108 / 63 (auto/); af2 20:47 Pulse 72 MON; Pulse Ox 98% ; af2 21:17 BP 110 / 72 (auto/); af2 21:17 Pulse 68 MON; Pulse Ox 97% ; af2 21:47 BP 105 / 61 (auto/); af2 21:47 Pulse 78 MON; Resp 18; Pulse Ox 97% on R/A; af2 04/28 00:31 BP 124 / 75; Pulse 61; Resp 18 S; Temp 96.6(O); Pulse Ox 97% on R/A; af2 04/27 15:11 Body Mass Index 29.44 (85.28 kg, 170.18 cm) elp MDM: 04/27 15:43 IV Saline Lock ordered. sd1 15:45 Amylase Ordered. EDMS 15:45 Basic Metabolic Profile Ordered. EDMS 15:45 CBC with Diff Ordered. EDMS 15:45 Lipase Ordered. EDMS 15:45 Liver Profile Ordered. EDMS 15:45 Prothrombin Time Profile\E\INR Ordered. EDMS 15:45 ECG WITH READING ER PHYS+CARDIAG ordered. EDMS 16:39 Basic Metabolic Profile Reviewed. sd1 16:39 CBC with Diff Reviewed. sd1 16:39 Liver Profile Reviewed. sd1 16:39 Prothrombin Time Profile\E\INR Reviewed. sd1 16:39 Amylase Reviewed. sd1 16:39 Lipase Reviewed. sd1 17:01 [facility] Payment Agreement was scanned into [email or web address] and attached to record. gjb 17:01 Financial registration complete. gjb 18:02 REGULAR+DIET ordered. EDMS 19:01 Tacker Off/Pulse Ox/q 30 min VS ordered. sd1 19:01 Misc. Nursing Order ordered. sd1 04/28 09:31 T-Sheet-- Draft Copy was scanned into [employer] and attached to record. gb 09:31 ECG/EKG was scanned into [employer] and attached to record. gb Signatures: Dispatcher [employer] EDAnel Pringle MD MD sd1 Mayte Guillory RN RN [facility] Drea Vanegas RN RN srm [place], Annalisa, Reg Reg gb Nata NicholeRN RN af2 Mimi Harris The chart was reviewed and I authenticate all verbal orders and agree with the evaluation and treatment provided.Corrections: (The following items were deleted from the chart) 04/27 15:32 15:25 Home Meds: Lasix 40 mg Oral tab 1 tab 2 times per day (Last Dose: 04/27/2016 [facility] 06:00); [facility] Attachments: 17:01 [facility] Payment Agreement gj 04/28 09:31 T-Sheet-- Draft Copy gb 09:31 ECG/EKG gb Chart Complete MTDD
== END 2016-04-28 00:33 | disposition short-term general hospital (02) ==
LOC: M ED 15:10
DX: I50.43 Acute on chronic combined systolic (congestive) and diastolic (congestive) heart failure (principal); I25.10 Atherosclerotic heart disease of native coronary artery without angina pectoris; J44.9 Chronic obstructive pulmonary disease, unspecified; Z95.1 Presence of aortocoronary bypass graft; Z95.5 Presence of coronary angioplasty implant and graft; Z95.2 Presence of prosthetic heart valve; Z79.899 Other long term (current) drug therapy; Z79.01 Long term (current) use of anticoagulants; Z79.82 Long term (current) use of aspirin; Z88.8 Allergy status to other drugs, medicaments and biological substances

== ENCOUNTER → 2016-05-10 | Outpatient (REF) | payer MEDICARE, MEDICAID ==
[2016-05-10 13:03] LABS: CALCIUM LEVEL 8.3 MG/DL (8.8-10.2); CREATININE FOR GFR 1.41 MG/DL (0.70-1.30); GLOMERULAR FILTRATION RATE 52.3 (>42); POTASSIUM SERUM 3.7 MEQ/L (3.5-5.1)
== END ==
LOC: M LABDRAW1 12:44
PROVIDERS: ATTEND Internal Medicine Cardiovascular Disease
DX: I50.9 Heart failure, unspecified (principal); I48.91 Unspecified atrial fibrillation

== ENCOUNTER 2016-09-22 08:15 | Emergency (ER) | payer MEDICARE, MEDICAID ==
[~2016-09-22] VITALS: Ht 170.2 cm; Wt 84.0 kg
[2016-09-22] MEDS ORDERED: CARV3.12 PO (08:42)
[2016-09-22] MEDS ORDERED: CART180C PO (08:42)
[2016-09-22] MEDS ORDERED: PANT40TA2 PO (08:43)
[2016-09-22] MEDS ORDERED: MECL-86 PO (08:43)
[2016-09-22] MEDS ORDERED: PRAD150C PO (08:45)
[2016-09-22] MEDS ORDERED: FURO40TA2 PO (08:45)
[2016-09-22] MEDS ORDERED: K-TA10TA2 PO (08:46)
[2016-09-22] MEDS ORDERED: ASPI1TAB PO (08:46)
[2016-09-22] MEDS ORDERED: AMLO5TAB2 PO (08:47)
[2016-09-22] MEDS ORDERED: ZOFR4TAB3 PO (08:50)
[2016-09-22 09:22] LABS: BASO # 0.1 K/mm3 (0.0-0.2); EOS # 0.2 K/mm3 (0.0-0.50); EOS % 2.6 % (0.0-3.0); LARGE UNSTAINED CELL # 0.2 K/mm3 (0.0-0.4); LARGE UNSTAINED CELL % 2.1 % (0.0-4.0); LYMPH # 1.6 K/mm3 (1.5-4.5); LYMPH % 16.5 % (24.0-44.0); MEAN CORPUSCULAR HEMOGLOBIN 24.2 pg (27.0-33.0); MEAN CORPUSCULAR HGB CONC 31.3 g/dl (32.0-36.5); MEAN CORPUSCULAR VOLUME 77.2 fl (80.0-96.0); MONO # 0.6 K/mm3 (0.0-0.8); MONO % 5.7 % (0.0-5.0); NEUTROPHILS # 6.9 K/mm3 (1.8-7.7); NEUTROPHILS % 72.1 % (36.0-66.0); PLATELET COUNT, AUTOMATED 258 k/mm3 (150-450); RED CELL DISTRIBUTION WIDTH 18.7 % (11.5-14.5); WHITE BLOOD COUNT 9.6 K/mm3 (4.0-10.0)
[2016-09-22 09:31] LABS: CALCIUM LEVEL 9.5 MG/DL (8.8-10.2); CREATININE FOR GFR 1.3 MG/DL (0.70-1.30); GLOMERULAR FILTRATION RATE 57.4 (>42); POTASSIUM SERUM 3.8 MEQ/L (3.5-5.1)
--- NOTE | 2016-09-22 09:42 | REP ---
PORTABLE CHEST: AP portable view of the chest is performed and compared to prior study of 04/12/2016. Once again, there is cardiomegaly with chronic interstitial prominence. No new infiltrates are seen. Mediastinal silhouette is unchanged. Multiple sternal wires are present as well as left pacemaker. IMPRESSION: Cardiomegaly. No acute infiltrate. Signed by Nicolas Andujar MD 09/22/2016 03:12 P
[2016-09-22 10:38] LABS: PERCENT SATURATION 10.3 % (19.7-37.4)
[2016-09-22] MEDS ORDERED: FERR325T3 PO (11:02)
[2016-09-22 11:23] VITALS: BP 133/65
--- NOTE | 2016-09-22 12:20 | ECGEPIP ---
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
== END 2016-09-22 11:24 | disposition home or self-care (01) ==
LOC: M ED 09:26
DX: I48.2 Chronic atrial fibrillation (principal); D50.9 Iron deficiency anemia, unspecified; I25.10 Atherosclerotic heart disease of native coronary artery without angina pectoris; I50.9 Heart failure, unspecified; J44.9 Chronic obstructive pulmonary disease, unspecified; Z72.0 Tobacco use; Z95.0 Presence of cardiac pacemaker; Z98.61 Coronary angioplasty status

== ENCOUNTER 2018-09-28 15:55 | Emergency (ER) | payer MEDICARE, MEDICAID ==
[~2018-09-28] VITALS: Ht 170.2 cm; Wt 80.9 kg
[~2018-09-28 15:55] MED LIST changes: +AMIO200T PO; -AMIO20TA PO; -AMIO400T PO; +AMIO400T7 PO; +AMLO5TAB6 PO; +ASPI81TA26 PO; -ASPI81TA4 PO; +ASPI81TA52 PO; +CART180C3 PO; +FERR325T3 PO; +K-TA10TA2 PO; +KLOR10TA76 PO; -LASI40TA PO; +LASI40TA9 PO; +LEVO750T13 PO; -LEVO750T33 PO; +MECL-86 PO; +METO25TA4 PO; -METO25TAB PO; +PANT40TA3 PO; -POTA10CA PO; +PRAD150C6 PO; -PROA1AER INH; +PROAAER10 INH; +ZOFR4TAB14 PO
[2018-09-28 16:30] LABS: BASO # 0.1 10^3/uL (0.0-0.2); EOS # 0.3 10^3/uL (0.0-0.50); EOS % 4.1 % (0.0-3.0); HEMATOCRIT 46.2 % (42.0-52.0); HEMOGLOBIN 15.2 g/dl (13.5-17.5); LYMPH % 27.5 % (24.0-44.0); MEAN CORPUSCULAR HEMOGLOBIN 29.1 pg (27.0-33.0); MEAN CORPUSCULAR HGB CONC 32.9 g/dl (32.0-36.5); MEAN CORPUSCULAR VOLUME 88.3 fl (80.0-96.0); MONO # 0.6 10^3/uL (0.0-0.8); MONO % 8.3 % (0.0-5.0); NEUTROPHILS # 4.3 10^3/uL (1.8-7.7); NEUTROPHILS % 58.6 % (36.0-66.0); PLATELET COUNT, AUTOMATED 211 10^3/uL (150-450); RED BLOOD COUNT 5.23 10^6/uL (4.30-6.10); WHITE BLOOD COUNT 7.4 10^3/uL (4.0-10.0)
--- NOTE | 2018-09-28 16:34 | REP ---
Clinical: Acute chest pain . Comparison: 09/22/2016, 04/12/2016 . Findings: The mediastinum and cardiac silhouette are stable and within normal limits for portable technique. Evidence of prior sternotomy, CABG and pacemaker remain stable. The lung sampson demonstrate chronic-appearing changes without acute consolidation, effusion, or pneumothorax. Skeletal structures are intact. Impression: No acute cardiopulmonary process appreciated. Electronically Signed by Denzel Del Real MD 09/28/2018 04:27 P
[2018-09-28 16:47] LABS: INR 3.16; PROTHROMBIN TIME 32.4 SECONDS (11.8-14.0)
--- NOTE | 2018-09-28 16:51 | ECGEPIP ---
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
[2018-09-28 17:09] LABS: ALBUMIN 3.6 GM/DL (3.2-5.2); ALT/SGPT 16 U/L (12-78); BILIRUBIN,DIRECT 0.3 MG/DL (0.0-0.2); BLOOD UREA NITROGEN 21 MG/DL (7-18); CALCIUM LEVEL 8.4 MG/DL (8.8-10.2); CARBON DIOXIDE LEVEL 27 MEQ/L (21-32); CHLORIDE LEVEL 103 MEQ/L (98-107); CK-MB VALUE MASS 1.6 NG/ML (<3.6); CPK CREATINE PHOSPHOKINASE 77 U/L (39-308); CREATININE FOR GFR 1.37 MG/DL (0.70-1.30); GLOMERULAR FILTRATION RATE 53.8 (>42); GLUCOSE, FASTING 287 MG/DL (70-100); LIPASE 220 U/L (73-393); MAGNESIUM LEVEL 2.2 MG/DL (1.8-2.4); MB/CK RELATIVE INDEX 2.08 (< OR =4); NT-PRO BNP 2012 PG/ML (<450); POTASSIUM SERUM 4.4 MEQ/L (3.5-5.1); SODIUM LEVEL 137 MEQ/L (136-145); TOTAL PROTEIN 7.4 GM/DL (6.4-8.2); TROPONIN I < 0.02 NG/ML (< 0.10)
[2018-09-28 17:46] VITALS: BP 145/63
== END 2018-09-28 17:58 | disposition home or self-care (01) ==
LOC: M ED 15:55
DX: R00.2 Palpitations (principal); I48.91 Unspecified atrial fibrillation; I25.10 Atherosclerotic heart disease of native coronary artery without angina pectoris; J44.9 Chronic obstructive pulmonary disease, unspecified; Z95.1 Presence of aortocoronary bypass graft; Z95.5 Presence of coronary angioplasty implant and graft; Z95.0 Presence of cardiac pacemaker; Z95.2 Presence of prosthetic heart valve; F17.200 Nicotine dependence, unspecified, uncomplicated; Z88.8 Allergy status to other drugs, medicaments and biological substances; Z88.6 Allergy status to analgesic agent; Z79.899 Other long term (current) drug therapy; Z79.82 Long term (current) use of aspirin; Z79.01 Long term (current) use of anticoagulants

== ENCOUNTER → 2021-05-24 | Outpatient (CLI) | payer MEDICARE, MEDICAID ==
[~2021-05-24] MED LIST changes: -AMIO200T PO; +AMIO200T49 PO; +AMLO1TAB24 PO; -AMLO5TAB6 PO; -DOXY100T16 PO; +DOXY100T27 PO; +ISOS1TAB35 PO; -ISOS30TA4 PO; +ISOVUE-370 76% 100ML VIAL As Ordered ONE; -KLOR10TA76 PO; +PANT40TA29 PO; -PANT40TA3 PO; +POTA-136 PO
== END ==
LOC: M RAD 16:19
PROVIDERS: ATTEND Physician Assistant
DX: Z01.818 Encounter for other preprocedural examination (principal); I70.262 Atherosclerosis of native arteries of extremities with gangrene, left leg; D69.8 Other specified hemorrhagic conditions; I71.4 Abdominal aortic aneurysm, without rupture
CPT/HCPCS: 36415; 75635; 82565; 84520; Q9967

== ENCOUNTER → 2021-05-24 | Outpatient (CLI) | payer MEDICARE, MEDICAID ==
[~2021-05-24] MED LIST changes: -ISOVUE-370 76% 100ML VIAL As Ordered ONE
[2021-05-24 14:52] LABS: CREATININE FOR GFR 1.35 MG/DL (0.70-1.30); GLOMERULAR FILTRATION RATE 54.3 (>42)
== END ==
LOC: M PLALAB 09:46
PROVIDERS: ATTEND Surgery Vascular Surgery
DX: Z01.818 Encounter for other preprocedural examination (principal); D69.8 Other specified hemorrhagic conditions; I71.4 Abdominal aortic aneurysm, without rupture

== ENCOUNTER → 2021-09-08 | Outpatient (CLI) | payer MEDICARE, MEDICAID ==
[~2021-09-08] MED LIST changes: +ISOVUE-370 76% 100ML VIAL As Ordered ONE
== END ==
LOC: M RAD 15:29
PROVIDERS: ATTEND Surgery Vascular Surgery
DX: I73.9 Peripheral vascular disease, unspecified (principal)
CPT/HCPCS: 75635; Q9967

== ENCOUNTER 2021-09-14 20:51 | Emergency (ER) | payer MEDICARE, MEDICAID ==
[~2021-09-14] VITALS: Ht 170.2 cm; Wt 84.0 kg
[~2021-09-14 20:51] MED LIST changes: -ISOVUE-370 76% 100ML VIAL As Ordered ONE
[2021-09-14 21:38] VITALS: BP 130/61
[2021-09-14 21:46] LABS: BASO % 0.2 % (0.0-1.0); EOS % 0.2 % (0.0-3.0); HEMOGLOBIN 8.8 g/dl (13.5-17.5); LYMPH # 1.2 10^3/uL (1.5-5.0); LYMPH % 11.6 % (24.0-44.0); MEAN CORPUSCULAR HEMOGLOBIN 25.9 pg (27.0-33.0); MEAN CORPUSCULAR HGB CONC 31.4 g/dl (32.0-36.5); MEAN CORPUSCULAR VOLUME 82.4 fl (80.0-96.0); MONO # 0.8 10^3/uL (0.0-0.8); MONO % 7.6 % (2.0-8.0); NEUTROPHILS # 8.2 10^3/uL (1.5-8.5); NEUTROPHILS % 79.8 % (36.0-66.0); PLATELET COUNT, AUTOMATED 195 10^3/uL (150-450); WHITE BLOOD COUNT 10.3 10^3/uL (4.0-10.0)
[2021-09-14 21:50] LABS: INR 1.66; PARTIAL THROMBOPLASTIN TIME 38.3 SECONDS (25.9-37.0)
[2021-09-14 22:04] LABS: CK-MB VALUE MASS 1.5 NG/ML (<3.6); MB/CK RELATIVE INDEX 0.8 (< OR =4)
[2021-09-14 22:05] LABS: CREATININE FOR GFR 1.39 MG/DL (0.70-1.30); FREE T4 0.99 NG/DL (0.76-1.46); GLOMERULAR FILTRATION RATE 52.5 (>42); THYROID STIMULATING HORMONE 2.23 uIU/ML (0.358-3.740)
== END 2021-09-14 23:02 | disposition left against medical advice (07) ==
LOC: M ED 20:51
DX: Z04.89 Encounter for examination and observation for other specified reasons (principal); R77.8 Other specified abnormalities of plasma proteins; I11.0 Hypertensive heart disease with heart failure; I50.9 Heart failure, unspecified; J44.9 Chronic obstructive pulmonary disease, unspecified; I25.2 Old myocardial infarction; E78.5 Hyperlipidemia, unspecified; M54.50 Low back pain, unspecified; Z95.5 Presence of coronary angioplasty implant and graft; Z79.899 Other long term (current) drug therapy; Z79.82 Long term (current) use of aspirin; Z79.01 Long term (current) use of anticoagulants; Z88.8 Allergy status to other drugs, medicaments and biological substances

== ENCOUNTER 2021-10-06 14:56 | Inpatient (IN) | payer MEDICARE, MEDICAID ==
[~2021-10-06] VITALS: Ht 182.9 cm; Wt 69.2 kg
[2021-10-06] MEDS ORDERED: dexameTHASONE 20MG/5ML VIAL (J1100 PER 1MG) IV ONE (15:00)
[2021-10-06] MEDS ORDERED: ACETAMINOPHEN TAB 650MG DOSE (2X325MG) PO ONE (15:30)
[2021-10-06 15:36] LABS: BASO # 0.1 10^3/uL (0.0-0.2); BASO % 0.3 % (0.0-1.0); EOS % 0.2 % (0.0-3.0); HEMATOCRIT 37.1 % (42.0-52.0); LYMPH # 1.1 10^3/uL (1.5-5.0); LYMPH % 6.2 % (24.0-44.0); MEAN CORPUSCULAR HEMOGLOBIN 24.9 pg (27.0-33.0); MEAN CORPUSCULAR HGB CONC 29.6 g/dl (32.0-36.5); MEAN CORPUSCULAR VOLUME 83.9 fl (80.0-96.0); MONO # 0.7 10^3/uL (0.0-0.8); MONO % 4.4 % (2.0-8.0); NEUTROPHILS # 14.9 10^3/uL (1.5-8.5); NEUTROPHILS % 88.1 % (36.0-66.0); PLATELET COUNT, AUTOMATED 185 10^3/uL (150-450); RED BLOOD COUNT 4.42 10^6/uL (4.30-6.10); WHITE BLOOD COUNT 16.9 10^3/uL (4.0-10.0)
[2021-10-06 16:00] LABS: ALBUMIN 3.4 GM/DL (3.2-5.2); ALT/SGPT 7 U/L (12-78); BILIRUBIN,DIRECT 0.8 MG/DL (0.0-0.2); BILIRUBIN,TOTAL 1.7 MG/DL (0.2-1.0); BLOOD UREA NITROGEN 16 MG/DL (7-18); CALCIUM LEVEL 8.8 MG/DL (8.8-10.2); CARBON DIOXIDE LEVEL 25 MEQ/L (21-32); CHLORIDE LEVEL 106 MEQ/L (98-107); CREATININE FOR GFR 1.16 MG/DL (0.70-1.30); GLOMERULAR FILTRATION RATE > 60.0 (>42); GLUCOSE, FASTING 114 MG/DL (70-100); NT-PRO BNP 27493 PG/ML (<450); POTASSIUM SERUM 4.5 MEQ/L (3.5-5.1); SODIUM LEVEL 139 MEQ/L (136-145)
[2021-10-06 16:01] LABS: CK-MB VALUE MASS < 1.0 NG/ML (<3.6); CPK CREATINE PHOSPHOKINASE 49 U/L (39-308); MB/CK RELATIVE INDEX 2.04 (< OR =4)
[2021-10-06] MEDS ORDERED: NS 1,840 ML in IV 1 EA IV ONE (18:00)
[2021-10-06] MEDS ORDERED: patient comment (18:24)
[2021-10-06] MEDS ORDERED: CARV12.5 PO (18:27)
[2021-10-06] MEDS ORDERED: FERR1TAB8 PO (18:27)
[2021-10-06] MEDS ORDERED: ISOS1TAB35 PO (18:29)
[2021-10-06] MEDS ORDERED: XARE15TA PO (18:29)
[2021-10-06] MEDS ORDERED: GABA-1171 PO (18:29)
[2021-10-06] MEDS ORDERED: ALBU8.5H INH (18:29)
[2021-10-06] MEDS ORDERED: HOME MED LIST COMPLETE! XX SCH (18:35)
[2021-10-06] MEDS ORDERED: MECLIZINE 25 MG TABLET PO PRN (18:45)
[2021-10-06] MEDS ORDERED: ALBUTEROL 90 MCG/ACT 8GM HFA INHALER INH PRN (18:45)
[2021-10-06 18:50] LABS: C REACTIVE PROTEIN QUANTITATIV 2.77 MG/DL (0.00-0.30)
[2021-10-06] MEDS ORDERED: D5W/0.45% SODIUM CHLORIDE 1,000 ML IV SCH (18:50)
[2021-10-06 19:07] LABS: ERYTHROCYTE SEDIMENTATION RATE 25 mm/hr (0-20)
[2021-10-06] MEDS ORDERED: UNRESOLVED CLARIFICATION ENTRY XX STA (19:35)
[2021-10-06] MEDS ORDERED: VANCOMYCIN HCL 750 MG, VIAL MATE ADAPTER 1 EACH in NS 250 ML IV ONE ×2 (20:00→21:00)
[2021-10-06] MEDS: CARVedilol 12.5 MG TAB PO SCH (22:43)
[2021-10-06] MEDS: PIPERACILLIN/TAZOBACTAM SOD 4.5 GM in D5W MINI-BAG PLUS 50 ML IV SCH (22:43)
[2021-10-06] MEDS: GABAPENTIN 100 MG CAP PO SCH (22:43)
[2021-10-07 03:06] VITALS: BP 117/53
[2021-10-07] MEDS: PIPERACILLIN/TAZOBACTAM SOD 4.5 GM in D5W MINI-BAG PLUS 50 ML IV SCH ×4 (05:14→22:21)
[2021-10-07] MEDS: VANCOMYCIN HCL 1,000 MG, VIAL MATE ADAPTER 1 EACH in NS 250 ML IV SCH ×2 (07:19→18:54)
[2021-10-07] MEDS: ACETAMINOPHEN TAB 650MG DOSE (2X325MG) PO PRN ×2 (07:19→20:18)
[2021-10-07 07:22] VITALS: BP 102/52
[2021-10-07 07:36] LABS: HEMATOCRIT 32.5 % (42.0-52.0); HEMOGLOBIN 9.8 g/dl (13.5-17.5); MEAN CORPUSCULAR HEMOGLOBIN 25.5 pg (27.0-33.0); MEAN CORPUSCULAR HGB CONC 30.2 g/dl (32.0-36.5); MEAN CORPUSCULAR VOLUME 84.4 fl (80.0-96.0); PLATELET COUNT, AUTOMATED 130 10^3/uL (150-450); RED BLOOD COUNT 3.85 10^6/uL (4.30-6.10); WHITE BLOOD COUNT 15.1 10^3/uL (4.0-10.0)
[2021-10-07 08:04] LABS: BLOOD UREA NITROGEN 17 MG/DL (7-18); CALCIUM LEVEL 8.3 MG/DL (8.8-10.2); CARBON DIOXIDE LEVEL 23 MEQ/L (21-32); CHLORIDE LEVEL 107 MEQ/L (98-107); CREATININE FOR GFR 1.04 MG/DL (0.70-1.30); GLOMERULAR FILTRATION RATE > 60.0 (>42); GLUCOSE, FASTING 202 MG/DL (70-100); SODIUM LEVEL 138 MEQ/L (136-145)
[2021-10-07] MEDS: diltiaZEM **CD** 180 MG CAP PO SCH (08:50)
[2021-10-07] MEDS: CARVedilol 12.5 MG TAB PO SCH ×2 (08:51→20:19)
[2021-10-07] MEDS: ISOSORBIDE MON. (IMDUR) 30MG XR TAB PO SCH (08:51)
[2021-10-07] MEDS: RIVAROXABAN 15MG TAB (XARELTO) PO SCH (09:07)
[2021-10-07] MEDS: ASPIRIN 81MG ENTERIC TABLET PO SCH (09:07)
[2021-10-07] MEDS: PANTOPRAZOLE 40MG TAB (PROTONIX) PO SCH (09:07)
[2021-10-07] MEDS: GABAPENTIN 100 MG CAP PO SCH ×2 (09:08→20:19)
[2021-10-07 11:44] VITALS: BP 117/54
[2021-10-07 16:00] VITALS: BP 124/72
[2021-10-07] MEDS ORDERED: FUROSEMIDE 40MG/4ML VIAL (J1940) IV ONE (16:45)
[2021-10-07 17:09] LABS: ABG BASE EXCESS -4.3 (-2.0-2.0); ABG HCO3 18.5 MEQ/L (22.0-26.0); ABG PARTIAL PRESSURE CO2 27.5 mmHg (35.0-45.0); ABG PARTIAL PRESSURE O2 128.5 mmHg (75.0-100.0); ABG STANDARD HCO3 20.9 MEQ/L (22.0-26.0); ABG TOTAL CO2 19.3 MEQ/L (23.0-31.0); ABG pH (ARTERIAL) 7.445 UNITS (7.350-7.450)
[2021-10-07 20:00] VITALS: BP 116/57
[2021-10-08] VITALS: BP 100/54
[2021-10-08 04:00] VITALS: BP 103/56
[2021-10-08] MEDS: PIPERACILLIN/TAZOBACTAM SOD 4.5 GM in D5W MINI-BAG PLUS 50 ML IV SCH ×4 (04:22→22:17)
[2021-10-08] MEDS: VANCOMYCIN HCL 1,000 MG, VIAL MATE ADAPTER 1 EACH in NS 250 ML IV SCH (06:01)
[2021-10-08 07:23] VITALS: BP 105/56
[2021-10-08 07:46] LABS: HEMATOCRIT 30.3 % (42.0-52.0); HEMOGLOBIN 9.2 g/dl (13.5-17.5); MEAN CORPUSCULAR HEMOGLOBIN 25.8 pg (27.0-33.0); MEAN CORPUSCULAR HGB CONC 30.4 g/dl (32.0-36.5); MEAN CORPUSCULAR VOLUME 84.9 fl (80.0-96.0); PLATELET COUNT, AUTOMATED 122 10^3/uL (150-450); RED BLOOD COUNT 3.57 10^6/uL (4.30-6.10); WHITE BLOOD COUNT 12.7 10^3/uL (4.0-10.0)
[2021-10-08 08:16] LABS: BLOOD UREA NITROGEN 27 MG/DL (7-18); CALCIUM LEVEL 8.1 MG/DL (8.8-10.2); CARBON DIOXIDE LEVEL 24 MEQ/L (21-32); CHLORIDE LEVEL 107 MEQ/L (98-107); CREATININE FOR GFR 1.16 MG/DL (0.70-1.30); GLOMERULAR FILTRATION RATE > 60.0 (>42); GLUCOSE, FASTING 107 MG/DL (70-100); POTASSIUM SERUM 3.9 MEQ/L (3.5-5.1); SODIUM LEVEL 140 MEQ/L (136-145)
[2021-10-08] MEDS: diltiaZEM **CD** 180 MG CAP PO SCH (09:42)
[2021-10-08] MEDS: ASPIRIN 81MG ENTERIC TABLET PO SCH (09:42)
[2021-10-08] MEDS: GABAPENTIN 300 MG CAP PO SCH ×2 (09:43→20:53)
[2021-10-08] MEDS: ISOSORBIDE MON. (IMDUR) 30MG XR TAB PO SCH (09:44)
[2021-10-08] MEDS: PANTOPRAZOLE 40MG TAB (PROTONIX) PO SCH (09:44)
[2021-10-08] MEDS: RIVAROXABAN 15MG TAB (XARELTO) PO SCH (09:44)
[2021-10-08] MEDS: CARVedilol 12.5 MG TAB PO SCH ×2 (09:45→20:53)
[2021-10-08 12:00] VITALS: BP 103/56
[2021-10-08] MEDS: ACETAMINOPHEN TAB 650MG DOSE (2X325MG) PO PRN (12:44)
[2021-10-08 14:54] LABS: NT-PRO BNP 55198 PG/ML (<450)
[2021-10-08 15:53] VITALS: BP 101/52
[2021-10-08] MEDS: FUROSEMIDE 40MG/4ML VIAL (J1940) IV SCH (16:12)
[2021-10-08] MEDS ORDERED: FUROSEMIDE 40 MG TAB PO SCH (17:00)
[2021-10-08 20:00] VITALS: BP 122/60
[2021-10-09] VITALS (7 sets, daily range): BP systolic 91–120; BP diastolic 50–59
[2021-10-09] MEDS ORDERED: VANCOMYCIN HCL 1,000 MG, VIAL MATE ADAPTER 1 EACH in NS 250 ML IV SCH ×3
[2021-10-09] MEDS: PIPERACILLIN/TAZOBACTAM SOD 4.5 GM in D5W MINI-BAG PLUS 50 ML IV SCH ×3 (04:49→21:04)
[2021-10-09 06:43] LABS: HEMATOCRIT 30.4 % (42.0-52.0); HEMOGLOBIN 9.3 g/dl (13.5-17.5); MEAN CORPUSCULAR HEMOGLOBIN 25.3 pg (27.0-33.0); MEAN CORPUSCULAR HGB CONC 30.6 g/dl (32.0-36.5); MEAN CORPUSCULAR VOLUME 82.8 fl (80.0-96.0); PLATELET COUNT, AUTOMATED 143 10^3/uL (150-450); RED BLOOD COUNT 3.67 10^6/uL (4.30-6.10); WHITE BLOOD COUNT 11.9 10^3/uL (4.0-10.0)
[2021-10-09 07:11] LABS: CALCIUM LEVEL 8.1 MG/DL (8.8-10.2); CREATININE FOR GFR 1.41 MG/DL (0.70-1.30); GLOMERULAR FILTRATION RATE 51.6 (>42); POTASSIUM SERUM 3.4 MEQ/L (3.5-5.1)
[2021-10-09 08:18] LABS: MAGNESIUM LEVEL 1.8 MG/DL (1.8-2.4)
[2021-10-09] MEDS: POTASSIUM CHLORIDE 10MEQ SR TABLET PO SCH ×2 (09:00→20:40)
[2021-10-09] MEDS: FUROSEMIDE 40MG/4ML VIAL (J1940) IV SCH ×2 (09:05→17:39)
[2021-10-09] MEDS: ASPIRIN 81MG ENTERIC TABLET PO SCH (09:05)
[2021-10-09] MEDS: RIVAROXABAN 15MG TAB (XARELTO) PO SCH (09:05)
[2021-10-09] MEDS: diltiaZEM **CD** 180 MG CAP PO SCH (09:06)
[2021-10-09] MEDS: PANTOPRAZOLE 40MG TAB (PROTONIX) PO SCH (09:06)
[2021-10-09] MEDS: ISOSORBIDE MON. (IMDUR) 30MG XR TAB PO SCH (09:06)
[2021-10-09] MEDS: GABAPENTIN 300 MG CAP PO SCH ×2 (09:06→20:40)
[2021-10-09] MEDS: CARVedilol 12.5 MG TAB PO SCH ×2 (09:06→20:38)
[2021-10-09] MEDS: ACETAMINOPHEN TAB 650MG DOSE (2X325MG) PO PRN (17:39)
[2021-10-09] MEDS ORDERED: NS 500 ML IV ONE (23:55)
[2021-10-10] VITALS (9 sets, daily range): BP systolic 89–124; BP diastolic 50–68
[2021-10-10] MEDS ORDERED: MIDODRINE 5 MG TAB PO ONE (00:10)
[2021-10-10] MEDS: PIPERACILLIN/TAZOBACTAM SOD 4.5 GM in D5W MINI-BAG PLUS 50 ML IV SCH ×3 (05:09→21:36)
[2021-10-10 07:52] LABS: HEMATOCRIT 23.8 % (42.0-52.0); MEAN CORPUSCULAR HEMOGLOBIN 25.7 pg (27.0-33.0); MEAN CORPUSCULAR HGB CONC 30.7 g/dl (32.0-36.5); MEAN CORPUSCULAR VOLUME 83.8 fl (80.0-96.0); PLATELET COUNT, AUTOMATED 135 10^3/uL (150-450); RED BLOOD COUNT 2.84 10^6/uL (4.30-6.10); WHITE BLOOD COUNT 11.1 10^3/uL (4.0-10.0)
[2021-10-10] MEDS ORDERED: VANCOMYCIN HCL 1,000 MG, VIAL MATE ADAPTER 1 EACH in NS 250 ML IV SCH (08:00)
[2021-10-10 08:05] LABS: HEMOGLOBIN 7.3 g/dl (13.5-17.5)
[2021-10-10 08:15] LABS: C REACTIVE PROTEIN QUANTITATIV 7.83 MG/DL (0.00-0.30); CALCIUM LEVEL 8.1 MG/DL (8.8-10.2); CREATININE FOR GFR 1.33 MG/DL (0.70-1.30); GLOMERULAR FILTRATION RATE 55.2 (>42); VANCOMYCIN LEVEL TROUGH 18.7 UG/ML (10.0-20.0)
[2021-10-10] MEDS: POTASSIUM CHLORIDE 10MEQ SR TABLET PO SCH ×2 (08:57→21:35)
[2021-10-10] MEDS: ACETAMINOPHEN TAB 650MG DOSE (2X325MG) PO PRN (08:57)
[2021-10-10] MEDS: ASPIRIN 81MG ENTERIC TABLET PO SCH (08:57)
[2021-10-10] MEDS: ISOSORBIDE MON. (IMDUR) 30MG XR TAB PO SCH (08:58)
[2021-10-10] MEDS: GABAPENTIN 300 MG CAP PO SCH ×2 (08:58→21:35)
[2021-10-10] MEDS: diltiaZEM **CD** 180 MG CAP PO SCH (08:58)
[2021-10-10] MEDS: RIVAROXABAN 15MG TAB (XARELTO) PO SCH (08:58)
[2021-10-10] MEDS: CARVedilol 12.5 MG TAB PO SCH ×2 (08:58→21:00)
[2021-10-10] MEDS: FUROSEMIDE 40MG/4ML VIAL (J1940) IV SCH ×2 (08:58→16:30)
[2021-10-10] MEDS: PANTOPRAZOLE 40MG TAB (PROTONIX) PO SCH (08:58)
[2021-10-11] VITALS (9 sets, daily range): BP systolic 93–118; BP diastolic 49–58
[2021-10-11 05:45] LABS: HEMATOCRIT 23.1 % (42.0-52.0); HEMOGLOBIN 7.2 g/dl (13.5-17.5); MEAN CORPUSCULAR HEMOGLOBIN 25.8 pg (27.0-33.0); MEAN CORPUSCULAR HGB CONC 31.2 g/dl (32.0-36.5); MEAN CORPUSCULAR VOLUME 82.8 fl (80.0-96.0); PLATELET COUNT, AUTOMATED 153 10^3/uL (150-450); RED BLOOD COUNT 2.79 10^6/uL (4.30-6.10)
[2021-10-11 06:10] LABS: CALCIUM LEVEL 8.3 MG/DL (8.8-10.2); CREATININE FOR GFR 1.28 MG/DL (0.70-1.30); GLOMERULAR FILTRATION RATE 57.7 (>42); POTASSIUM SERUM 4.3 MEQ/L (3.5-5.1)
[2021-10-11] MEDS: PIPERACILLIN/TAZOBACTAM SOD 4.5 GM in D5W MINI-BAG PLUS 50 ML IV SCH ×3 (06:31→21:00)
[2021-10-11] MEDS: POTASSIUM CHLORIDE 10MEQ SR TABLET PO SCH ×2 (09:30→20:53)
[2021-10-11] MEDS: GABAPENTIN 300 MG CAP PO SCH ×2 (09:30→20:53)
[2021-10-11] MEDS: ISOSORBIDE MON. (IMDUR) 30MG XR TAB PO SCH (09:30)
[2021-10-11] MEDS: RIVAROXABAN 15MG TAB (XARELTO) PO SCH (09:30)
[2021-10-11] MEDS: CARVedilol 12.5 MG TAB PO SCH ×2 (09:30→20:52)
[2021-10-11] MEDS: ASPIRIN 81MG ENTERIC TABLET PO SCH (09:30)
[2021-10-11] MEDS: PANTOPRAZOLE 40MG TAB (PROTONIX) PO SCH (09:30)
[2021-10-11] MEDS: FUROSEMIDE 40MG/4ML VIAL (J1940) IV SCH ×2 (09:31→17:00)
[2021-10-11] MEDS: diltiaZEM **CD** 180 MG CAP PO SCH (09:31)
[2021-10-11 14:18] LABS: INR 2.92; PROTHROMBIN TIME 30.8 SECONDS (12.7-14.5)
[2021-10-11 14:19] LABS: PARTIAL THROMBOPLASTIN TIME 51.1 SECONDS (25.9-37.0)
[2021-10-11 15:21] LABS: PERCENT SATURATION 24.3 % (19.7-50.0)
[2021-10-12 04:00] VITALS: BP 113/56
[2021-10-12] MEDS: PIPERACILLIN/TAZOBACTAM SOD 4.5 GM in D5W MINI-BAG PLUS 50 ML IV SCH ×4 (05:14→23:53)
[2021-10-12 05:57] LABS: HEMATOCRIT 29.3 % (42.0-52.0); MEAN CORPUSCULAR HEMOGLOBIN 26.2 pg (27.0-33.0); MEAN CORPUSCULAR HGB CONC 32.4 g/dl (32.0-36.5); MEAN CORPUSCULAR VOLUME 80.7 fl (80.0-96.0); PLATELET COUNT, AUTOMATED 157 10^3/uL (150-450); RED BLOOD COUNT 3.63 10^6/uL (4.30-6.10); WHITE BLOOD COUNT 10.6 10^3/uL (4.0-10.0)
[2021-10-12 06:10] LABS: HEMOGLOBIN 9.5 g/dl (13.5-17.5)
[2021-10-12 06:21] LABS: BLOOD UREA NITROGEN 31 MG/DL (7-18); C REACTIVE PROTEIN QUANTITATIV 6.22 MG/DL (0.00-0.30); CARBON DIOXIDE LEVEL 25 MEQ/L (21-32); CHLORIDE LEVEL 108 MEQ/L (98-107); CREATININE FOR GFR 1.07 MG/DL (0.70-1.30); GLOMERULAR FILTRATION RATE > 60.0 (>42); GLUCOSE, FASTING 157 MG/DL (70-100); POTASSIUM SERUM 4.3 MEQ/L (3.5-5.1); SODIUM LEVEL 137 MEQ/L (136-145)
[2021-10-12 07:39] VITALS: BP 118/62
[2021-10-12 09:52] VITALS: BP 115/55
[2021-10-12] MEDS: ISOSORBIDE MON. (IMDUR) 30MG XR TAB PO SCH (09:54)
[2021-10-12] MEDS: POTASSIUM CHLORIDE 10MEQ SR TABLET PO SCH ×2 (09:55→21:05)
[2021-10-12] MEDS: ASPIRIN 81MG ENTERIC TABLET PO SCH (09:55)
[2021-10-12] MEDS: GABAPENTIN 300 MG CAP PO SCH ×2 (09:56→21:05)
[2021-10-12] MEDS: CARVedilol 12.5 MG TAB PO SCH ×2 (09:56→21:05)
[2021-10-12] MEDS: PANTOPRAZOLE 40MG TAB (PROTONIX) PO SCH (09:56)
[2021-10-12] MEDS: diltiaZEM **CD** 180 MG CAP PO SCH (09:56)
[2021-10-12] MEDS: RIVAROXABAN 15MG TAB (XARELTO) PO SCH (09:56)
[2021-10-12] MEDS: FUROSEMIDE 40MG/4ML VIAL (J1940) IV SCH ×2 (09:57→16:48)
[2021-10-12] MEDS: ACETAMINOPHEN TAB 650MG DOSE (2X325MG) PO PRN (10:52)
[2021-10-12 12:05] VITALS: BP 110/52
[2021-10-12 16:26] VITALS: BP 110/53
[2021-10-12 19:55] VITALS: BP 123/55
[2021-10-13 02:45] VITALS: BP 98/54
[2021-10-13] MEDS: PIPERACILLIN/TAZOBACTAM SOD 4.5 GM in D5W MINI-BAG PLUS 50 ML IV SCH ×2 (05:38→12:15)
[2021-10-13 06:00] VITALS: BP 96/57
[2021-10-13 06:07] LABS: HEMATOCRIT 27.3 % (42.0-52.0); HEMOGLOBIN 8.8 g/dl (13.5-17.5); MEAN CORPUSCULAR HEMOGLOBIN 26.5 pg (27.0-33.0); MEAN CORPUSCULAR HGB CONC 32.2 g/dl (32.0-36.5); MEAN CORPUSCULAR VOLUME 82.2 fl (80.0-96.0); PLATELET COUNT, AUTOMATED 170 10^3/uL (150-450); RED BLOOD COUNT 3.32 10^6/uL (4.30-6.10); WHITE BLOOD COUNT 10.3 10^3/uL (4.0-10.0)
[2021-10-13 06:36] LABS: CALCIUM LEVEL 8.3 MG/DL (8.8-10.2); CREATININE FOR GFR 1.26 MG/DL (0.70-1.30); GLOMERULAR FILTRATION RATE 58.8 (>42); POTASSIUM SERUM 4.4 MEQ/L (3.5-5.1)
[2021-10-13] MEDS: ACETAMINOPHEN TAB 650MG DOSE (2X325MG) PO PRN ×2 (06:42→10:39)
[2021-10-13 09:00] VITALS: BP 96/57
[2021-10-13] MEDS: ISOSORBIDE MON. (IMDUR) 30MG XR TAB PO SCH (09:00)
[2021-10-13] MEDS: FUROSEMIDE 40MG/4ML VIAL (J1940) IV SCH (09:00)
[2021-10-13] MEDS: diltiaZEM **CD** 180 MG CAP PO SCH (09:00)
[2021-10-13] MEDS: CARVedilol 12.5 MG TAB PO SCH (09:00)
[2021-10-13] MEDS: ASPIRIN 81MG ENTERIC TABLET PO SCH (10:28)
[2021-10-13] MEDS: RIVAROXABAN 15MG TAB (XARELTO) PO SCH (10:29)
[2021-10-13] MEDS: POTASSIUM CHLORIDE 10MEQ SR TABLET PO SCH (10:29)
[2021-10-13] MEDS: PANTOPRAZOLE 40MG TAB (PROTONIX) PO SCH (10:29)
[2021-10-13] MEDS: GABAPENTIN 300 MG CAP PO SCH (10:29)
[2021-10-13 12:13] LABS: HEMATOCRIT 29.1 % (42.0-52.0); HEMOGLOBIN 9.1 g/dl (13.5-17.5); MEAN CORPUSCULAR HEMOGLOBIN 26.1 pg (27.0-33.0); MEAN CORPUSCULAR HGB CONC 31.3 g/dl (32.0-36.5); MEAN CORPUSCULAR VOLUME 83.6 fl (80.0-96.0); PLATELET COUNT, AUTOMATED 204 10^3/uL (150-450); RED BLOOD COUNT 3.48 10^6/uL (4.30-6.10); WHITE BLOOD COUNT 10.8 10^3/uL (4.0-10.0)
[2021-10-13 14:00] VITALS: BP 120/63
[2021-10-13] MEDS ORDERED: LEVO750T13 PO (14:25)
[2021-10-13] MEDS ORDERED: AMOX875T2 PO (14:25)
[2021-10-13] MEDS ORDERED: METO25TA PO (16:02)
== END 2021-10-13 17:00 | disposition home health service (06) | DRG 871 ==
LOC: EDBD 14:56 → M ED 14:56 → M ED INP 17:53 → ENRESERV 10-07 00:22 → M PCU 10-07 02:50 → M MS5PR 10-13 02:45
PROVIDERS: ADMIT Internal Medicine; ATTEND Internal Medicine
PROC: 0HBNXZZ Excision of Left Foot Skin, External Approach (ICD-10-PCS; principal; 2021-10-07)
PROC: 0HBRXZZ Excision of Toe Nail, External Approach (ICD-10-PCS; 2021-10-07)
DX: A41.1 Sepsis due to other specified staphylococcus (principal); I50.23 Acute on chronic systolic (congestive) heart failure; L03.116 Cellulitis of left lower limb; Z95.0 Presence of cardiac pacemaker; Z95.2 Presence of prosthetic heart valve; Z95.5 Presence of coronary angioplasty implant and graft; Z20.822 Contact with and (suspected) exposure to COVID-19; I25.10 Atherosclerotic heart disease of native coronary artery without angina pectoris; J44.9 Chronic obstructive pulmonary disease, unspecified; I11.0 Hypertensive heart disease with heart failure; I73.9 Peripheral vascular disease, unspecified; F17.210 Nicotine dependence, cigarettes, uncomplicated; Z79.82 Long term (current) use of aspirin; Z79.899 Other long term (current) drug therapy; Z79.01 Long term (current) use of anticoagulants; Z88.6 Allergy status to analgesic agent; Z88.8 Allergy status to other drugs, medicaments and biological substances; Z95.828 Presence of other vascular implants and grafts; L97.529 Non-pressure chronic ulcer of other part of left foot with unspecified severity; L60.0 Ingrowing nail; B35.1 Tinea unguium; D50.9 Iron deficiency anemia, unspecified

== ENCOUNTER 2021-10-16 22:30 | Inpatient (IN) | payer MEDICARE, MEDICAID ==
[~2021-10-16] VITALS: Ht 170.2 cm; Wt 64.1 kg
[~2021-10-16 22:30] MED LIST changes: +ALBU8.5H INH; +AMOX875T2 PO; +CARV12.5 PO; +FERR1TAB8 PO; +GABA-1171 PO; +LEVO1TAB40 PO; -LEVO750T13 PO; +METO25TA PO; +XARE15TA PO; +patient comment
[2021-10-17 00:14] LABS: BASO # 0.1 10^3/uL (0.0-0.2); BASO % 1.1 % (0.0-1.0); EOS # 0.6 10^3/uL (0.0-0.5); EOS % 5.9 % (0.0-3.0); HEMATOCRIT 29.5 % (42.0-52.0); HEMOGLOBIN 9.2 g/dl (13.5-17.5); LYMPH % 9.8 % (24.0-44.0); MEAN CORPUSCULAR HEMOGLOBIN 26.4 pg (27.0-33.0); MEAN CORPUSCULAR HGB CONC 31.2 g/dl (32.0-36.5); MEAN CORPUSCULAR VOLUME 84.5 fl (80.0-96.0); MONO # 0.5 10^3/uL (0.0-0.8); MONO % 4.8 % (2.0-8.0); NEUTROPHILS # 8.3 10^3/uL (1.5-8.5); NEUTROPHILS % 77.6 % (36.0-66.0); PLATELET COUNT, AUTOMATED 326 10^3/uL (150-450); RED BLOOD COUNT 3.49 10^6/uL (4.30-6.10); WHITE BLOOD COUNT 10.7 10^3/uL (4.0-10.0)
[2021-10-17 00:42] LABS: ALBUMIN 2.5 GM/DL (3.2-5.2); ALT/SGPT 17 U/L (12-78); BILIRUBIN,TOTAL 1.7 MG/DL (0.2-1.0); BLOOD UREA NITROGEN 19 MG/DL (7-18); C REACTIVE PROTEIN QUANTITATIV 2.79 MG/DL (0.00-0.30); CALCIUM LEVEL 8.3 MG/DL (8.8-10.2); CARBON DIOXIDE LEVEL 25 MEQ/L (21-32); CHLORIDE LEVEL 108 MEQ/L (98-107); CREATININE FOR GFR 1.07 MG/DL (0.70-1.30); GLOMERULAR FILTRATION RATE > 60.0 (>42); GLUCOSE, FASTING 90 MG/DL (70-100); MAGNESIUM LEVEL 2.2 MG/DL (1.8-2.4); POTASSIUM SERUM 5.9 MEQ/L (3.5-5.1); SODIUM LEVEL 137 MEQ/L (136-145); TOTAL PROTEIN 6.2 GM/DL (6.4-8.2)
[2021-10-17] MEDS ORDERED: ISOVUE-370 76% 100ML VIAL As Ordered ONE (00:57)
[2021-10-17] MEDS ORDERED: AMOX875T2 PO (03:33)
[2021-10-17] MEDS ORDERED: LEVO750T14 PO (03:33)
[2021-10-17] MEDS ORDERED: HOME MED LIST COMPLETE! XX SCH (03:40)
[2021-10-17 04:10] LABS: RSV AMPLIFICATION NEGATIVE (NEGATIVE)
[2021-10-17 04:40] LABS: NT-PRO BNP 33716 PG/ML (<450)
[2021-10-17] MEDS ORDERED: HEPARIN SOD (PORCINE) 5000UNITS/ML 1ML VIAL/SYRINGE IV PRN ×2 (04:55→13:30)
[2021-10-17] MEDS ORDERED: HYDROMORPHONE HCL 0.5 MG/ 0.5 ML SYRINGE (J1170 PER 1) IV PRN (05:50)
[2021-10-17] MEDS ORDERED: FUROSEMIDE 40MG/4ML VIAL (J1940) IV ONE (06:00)
[2021-10-17] MEDS ORDERED: HEPARIN SOD (PORCINE) 5000UNITS/ML 1ML VIAL/SYRINGE IV ONE (06:00)
[2021-10-17] MEDS ORDERED: HEPARIN DRIP 25,000 UNITS in IV 1 EA IV SCH ×2 (06:00→13:40)
[2021-10-17] MEDS: PANTOPRAZOLE 40MG VIAL IV SCH ×2 (07:02→20:25)
[2021-10-17 07:21] LABS: HEMATOCRIT 31.3 % (42.0-52.0); HEMOGLOBIN 9.6 g/dl (13.5-17.5); MEAN CORPUSCULAR HEMOGLOBIN 26.4 pg (27.0-33.0); MEAN CORPUSCULAR HGB CONC 30.7 g/dl (32.0-36.5); PLATELET COUNT, AUTOMATED 367 10^3/uL (150-450); RED BLOOD COUNT 3.64 10^6/uL (4.30-6.10); WHITE BLOOD COUNT 12.5 10^3/uL (4.0-10.0)
[2021-10-17] MEDS ORDERED: SOD POLYSTYRENE SULFONATE SUSP 15GM 60ML UD PO ONE (08:00)
[2021-10-17] MEDS: IPRATROPIUM 0.5MG/ALBUTEROL 2.5MG INH SOL UD 3ML (DUONEB) NEB SCH ×4 (09:05→19:48)
[2021-10-17 09:22] VITALS: BP 121/58
[2021-10-17 09:37] LABS: BLOOD UREA NITROGEN 19 MG/DL (7-18); CALCIUM LEVEL 8.3 MG/DL (8.8-10.2); CARBON DIOXIDE LEVEL 24 MEQ/L (21-32); CHLORIDE LEVEL 109 MEQ/L (98-107); CREATININE FOR GFR 0.99 MG/DL (0.70-1.30); GLOMERULAR FILTRATION RATE > 60.0 (>42); GLUCOSE, FASTING 91 MG/DL (70-100); POTASSIUM SERUM 4.1 MEQ/L (3.5-5.1); SODIUM LEVEL 141 MEQ/L (136-145)
[2021-10-17 10:43] LABS: HEMATOCRIT 30.1 % (42.0-52.0); HEMOGLOBIN 9.5 g/dl (13.5-17.5)
[2021-10-17 12:00] VITALS: BP 111/57
[2021-10-17] MEDS ORDERED: FUROSEMIDE 20MG/2ML VIAL (J1940) IV ONE (13:45)
[2021-10-17 16:00] VITALS: BP 127/62
[2021-10-17] MEDS: ASPIRIN 81 MG CHEW TABLET PO SCH (16:34)
[2021-10-17 17:12] LABS: HEMATOCRIT 29.1 % (42.0-52.0); HEMOGLOBIN 8.9 g/dl (13.5-17.5)
[2021-10-17 19:55] VITALS: BP 117/59
[2021-10-17 20:00] VITALS: BP 117/59
[2021-10-17] MEDS: GABAPENTIN 300 MG CAP PO SCH (20:25)
[2021-10-17] MEDS: CARVedilol 12.5 MG TAB PO SCH (20:25)
[2021-10-17] MEDS: HEPARIN SOD (PORCINE) 5000UNITS/ML 1ML VIAL/SYRINGE SQ SCH (20:26)
[2021-10-17] MEDS ORDERED: HEPARIN SOD (PORCINE) 5000UNITS/ML 1ML VIAL/SYRINGE SQ SCH (21:00)
[2021-10-17 22:56] LABS: HEMATOCRIT 27.3 % (42.0-52.0); HEMOGLOBIN 8.5 g/dl (13.5-17.5)
[2021-10-18 04:00] VITALS: BP 117/55
[2021-10-18] MEDS: HEPARIN SOD (PORCINE) 5000UNITS/ML 1ML VIAL/SYRINGE SQ SCH (05:36)
[2021-10-18 06:25] LABS: MEAN CORPUSCULAR HEMOGLOBIN 26.2 pg (27.0-33.0); MEAN CORPUSCULAR VOLUME 84.3 fl (80.0-96.0); PLATELET COUNT, AUTOMATED 324 10^3/uL (150-450); RED BLOOD COUNT 3.44 10^6/uL (4.30-6.10); WHITE BLOOD COUNT 8.7 10^3/uL (4.0-10.0)
[2021-10-18 06:50] LABS: BLOOD UREA NITROGEN 18 MG/DL (7-18); CALCIUM LEVEL 8.7 MG/DL (8.8-10.2); CARBON DIOXIDE LEVEL 26 MEQ/L (21-32); CHLORIDE LEVEL 110 MEQ/L (98-107); CREATININE FOR GFR 1.05 MG/DL (0.70-1.30); GLOMERULAR FILTRATION RATE > 60.0 (>42); GLUCOSE, FASTING 70 MG/DL (70-100); MAGNESIUM LEVEL 2.1 MG/DL (1.8-2.4); POTASSIUM SERUM 3.9 MEQ/L (3.5-5.1); SODIUM LEVEL 144 MEQ/L (136-145)
[2021-10-18] MEDS: IPRATROPIUM 0.5MG/ALBUTEROL 2.5MG INH SOL UD 3ML (DUONEB) NEB SCH ×4 (07:48→19:27)
[2021-10-18 08:14] VITALS: BP 120/58
[2021-10-18] MEDS ORDERED: metOLazone 2.5 MG TAB PO SCH (09:00)
[2021-10-18] MEDS: ASPIRIN 81 MG CHEW TABLET PO SCH (09:14)
[2021-10-18] MEDS: PANTOPRAZOLE 40MG VIAL IV SCH ×2 (09:14→19:55)
[2021-10-18] MEDS: CARVedilol 12.5 MG TAB PO SCH ×2 (09:14→19:56)
[2021-10-18] MEDS: GABAPENTIN 300 MG CAP PO SCH ×2 (09:14→20:39)
[2021-10-18] MEDS: ENOXAPARIN 60MG/0.6ML SYRINGE (J1650 PER 10MG) SC SCH ×2 (11:24→23:00)
[2021-10-18 16:08] VITALS: BP 112/53
[2021-10-18 19:50] VITALS: BP 111/55
[2021-10-18 23:55] VITALS: BP 94/54
[2021-10-19] MEDS ORDERED: ACETAMINOPHEN TAB 650MG DOSE (2X325MG) PO PRN (02:05)
[2021-10-19] MEDS: ALBUTEROL SULFATE 2.5 MG/0.5 ML INH NEB SOLN INH PRN (02:21)
[2021-10-19 03:50] VITALS: BP 106/61
[2021-10-19 06:31] LABS: HEMOGLOBIN 8.5 g/dl (13.5-17.5); MEAN CORPUSCULAR HEMOGLOBIN 26.8 pg (27.0-33.0); MEAN CORPUSCULAR HGB CONC 31.5 g/dl (32.0-36.5); MEAN CORPUSCULAR VOLUME 85.2 fl (80.0-96.0); PLATELET COUNT, AUTOMATED 317 10^3/uL (150-450); RED BLOOD COUNT 3.17 10^6/uL (4.30-6.10); WHITE BLOOD COUNT 8.2 10^3/uL (4.0-10.0)
[2021-10-19 07:00] LABS: BLOOD UREA NITROGEN 19 MG/DL (7-18); CALCIUM LEVEL 8.5 MG/DL (8.8-10.2); CARBON DIOXIDE LEVEL 25 MEQ/L (21-32); CHLORIDE LEVEL 106 MEQ/L (98-107); CREATININE FOR GFR 1.03 MG/DL (0.70-1.30); GLOMERULAR FILTRATION RATE > 60.0 (>42); GLUCOSE, FASTING 112 MG/DL (70-100); PHOSPHORUS LEVEL 2.9 MG/DL (2.5-4.9); POTASSIUM SERUM 3.8 MEQ/L (3.5-5.1); SODIUM LEVEL 139 MEQ/L (136-145)
[2021-10-19] MEDS: IPRATROPIUM 0.5MG/ALBUTEROL 2.5MG INH SOL UD 3ML (DUONEB) NEB SCH ×4 (07:22→19:32)
[2021-10-19 07:26] VITALS: BP 130/58
[2021-10-19] MEDS: CARVedilol 12.5 MG TAB PO SCH ×2 (09:19→20:58)
[2021-10-19] MEDS: ASPIRIN 81 MG CHEW TABLET PO SCH (09:19)
[2021-10-19] MEDS: PANTOPRAZOLE 40MG VIAL IV SCH (09:19)
[2021-10-19] MEDS: SPIRONOLACTONE 6.25 MG PER 1/4 TAB PO SCH (09:19)
[2021-10-19] MEDS: GABAPENTIN 300 MG CAP PO SCH ×2 (09:19→20:57)
[2021-10-19 11:34] VITALS: BP 105/53
[2021-10-19] MEDS: ENOXAPARIN 60MG/0.6ML SYRINGE (J1650 PER 10MG) SC SCH ×2 (12:28→23:07)
[2021-10-19] MEDS: MORPHINE 2 MG/ML 1ML VIAL IV PRN ×2 (13:54→22:46)
[2021-10-19] MEDS: LISINOPRIL *2.5 MG* TAB PO SCH (14:31)
[2021-10-19 15:46] VITALS: BP 100/58
[2021-10-19 16:01] LABS: PERCENT SATURATION 7.4 % (19.7-50.0)
[2021-10-19 16:50] LABS: FOLATE 4.2 NG/ML (>5.4)
[2021-10-19 20:00] VITALS: BP 101/51
[2021-10-19] MEDS: PANTOPRAZOLE 40MG TAB (PROTONIX) PO SCH (20:57)
[2021-10-20] MEDS: ALBUTEROL SULFATE 2.5 MG/0.5 ML INH NEB SOLN INH PRN (03:37)
[2021-10-20 05:56] LABS: HEMATOCRIT 28.1 % (42.0-52.0); HEMOGLOBIN 8.8 g/dl (13.5-17.5); MEAN CORPUSCULAR HEMOGLOBIN 26.8 pg (27.0-33.0); MEAN CORPUSCULAR HGB CONC 31.3 g/dl (32.0-36.5); MEAN CORPUSCULAR VOLUME 85.7 fl (80.0-96.0); PLATELET COUNT, AUTOMATED 324 10^3/uL (150-450); RED BLOOD COUNT 3.28 10^6/uL (4.30-6.10); WHITE BLOOD COUNT 8.4 10^3/uL (4.0-10.0)
[2021-10-20 06:17] LABS: BLOOD UREA NITROGEN 18 MG/DL (7-18); CALCIUM LEVEL 8.5 MG/DL (8.8-10.2); CARBON DIOXIDE LEVEL 26 MEQ/L (21-32); CHLORIDE LEVEL 103 MEQ/L (98-107); CREATININE FOR GFR 0.92 MG/DL (0.70-1.30); GLOMERULAR FILTRATION RATE > 60.0 (>42); GLUCOSE, FASTING 112 MG/DL (70-100); MAGNESIUM LEVEL 1.9 MG/DL (1.8-2.4); PHOSPHORUS LEVEL 2.5 MG/DL (2.5-4.9); POTASSIUM SERUM 4.1 MEQ/L (3.5-5.1); SODIUM LEVEL 137 MEQ/L (136-145)
[2021-10-20 08:00] VITALS: BP 123/58
[2021-10-20] MEDS: IPRATROPIUM 0.5MG/ALBUTEROL 2.5MG INH SOL UD 3ML (DUONEB) NEB SCH ×4 (08:05→19:52)
[2021-10-20] MEDS: ASPIRIN 81 MG CHEW TABLET PO SCH (08:45)
[2021-10-20] MEDS: GABAPENTIN 300 MG CAP PO SCH ×2 (08:46→21:23)
[2021-10-20] MEDS: LISINOPRIL *2.5 MG* TAB PO SCH (08:46)
[2021-10-20] MEDS: CARVedilol 12.5 MG TAB PO SCH ×2 (08:46→21:23)
[2021-10-20] MEDS: FERROUS SULFATE 325MG TAB PO SCH (08:46)
[2021-10-20] MEDS: PANTOPRAZOLE 40MG TAB (PROTONIX) PO SCH ×2 (08:46→21:23)
[2021-10-20] MEDS: SPIRONOLACTONE 6.25 MG PER 1/4 TAB PO SCH (09:00)
[2021-10-20 12:00] VITALS: BP 101/51
[2021-10-20] MEDS: ENOXAPARIN 60MG/0.6ML SYRINGE (J1650 PER 10MG) SC SCH ×2 (12:21→23:00)
[2021-10-20 16:00] VITALS: BP 92/43
[2021-10-20 20:00] VITALS: BP 111/57
[2021-10-21] VITALS: BP 103/50
[2021-10-21 04:00] VITALS: BP 99/49
[2021-10-21] MEDS: ALBUTEROL SULFATE 2.5 MG/0.5 ML INH NEB SOLN INH PRN (04:02)
[2021-10-21] MEDS: MORPHINE 2 MG/ML 1ML VIAL IV PRN (04:03)
[2021-10-21 06:00] LABS: HEMATOCRIT 26.7 % (42.0-52.0); HEMOGLOBIN 8.2 g/dl (13.5-17.5); MEAN CORPUSCULAR HEMOGLOBIN 26.5 pg (27.0-33.0); MEAN CORPUSCULAR HGB CONC 30.7 g/dl (32.0-36.5); MEAN CORPUSCULAR VOLUME 86.1 fl (80.0-96.0); PLATELET COUNT, AUTOMATED 288 10^3/uL (150-450); WHITE BLOOD COUNT 7.8 10^3/uL (4.0-10.0)
[2021-10-21 06:52] LABS: BLOOD UREA NITROGEN 22 MG/DL (7-18); CALCIUM LEVEL 7.9 MG/DL (8.8-10.2); CARBON DIOXIDE LEVEL 28 MEQ/L (21-32); CHLORIDE LEVEL 102 MEQ/L (98-107); CREATININE FOR GFR 1.06 MG/DL (0.70-1.30); GLOMERULAR FILTRATION RATE > 60.0 (>42); GLUCOSE, FASTING 111 MG/DL (70-100); MAGNESIUM LEVEL 1.9 MG/DL (1.8-2.4); PHOSPHORUS LEVEL 2.3 MG/DL (2.5-4.9); POTASSIUM SERUM 3.7 MEQ/L (3.5-5.1); SODIUM LEVEL 136 MEQ/L (136-145)
[2021-10-21 07:28] VITALS: BP 109/53
[2021-10-21] MEDS: IPRATROPIUM 0.5MG/ALBUTEROL 2.5MG INH SOL UD 3ML (DUONEB) NEB SCH ×2 (07:55→11:40)
[2021-10-21] MEDS: CARVedilol 12.5 MG TAB PO SCH ×2 (09:00→21:00)
[2021-10-21] MEDS: FERROUS SULFATE 325MG TAB PO SCH (09:11)
[2021-10-21] MEDS: ATORVASTATIN 20 MG TAB PO SCH (09:11)
[2021-10-21] MEDS: GABAPENTIN 300 MG CAP PO SCH ×2 (09:11→21:31)
[2021-10-21] MEDS: K-PHOS NEUTRAL 250MG TABLET (SOD.PHOSPHATE/POT.PHOSPHATE) PO SCH ×3 (09:11→21:31)
[2021-10-21] MEDS: SPIRONOLACTONE 6.25 MG PER 1/4 TAB PO SCH (09:11)
[2021-10-21] MEDS: LISINOPRIL *2.5 MG* TAB PO SCH (09:11)
[2021-10-21] MEDS: ASPIRIN 81 MG CHEW TABLET PO SCH (09:11)
[2021-10-21] MEDS: PANTOPRAZOLE 40MG TAB (PROTONIX) PO SCH ×2 (09:11→21:31)
[2021-10-21] MEDS: ENOXAPARIN 60MG/0.6ML SYRINGE (J1650 PER 10MG) SC SCH ×2 (11:50→23:09)
[2021-10-21 12:02] VITALS: BP 106/54
[2021-10-21 20:00] VITALS: BP 100/46
[2021-10-21] MEDS: ROSUVASTATIN 10 MG TAB (CRESTOR) PO SCH (21:31)
[2021-10-22 04:00] VITALS: BP 109/55
[2021-10-22 07:10] LABS: ALBUMIN 2.5 GM/DL (3.2-5.2); ALT/SGPT 11 U/L (12-78); BILIRUBIN,TOTAL 1.5 MG/DL (0.2-1.0); BLOOD UREA NITROGEN 25 MG/DL (7-18); CALCIUM LEVEL 8.3 MG/DL (8.8-10.2); CARBON DIOXIDE LEVEL 29 MEQ/L (21-32); CHLORIDE LEVEL 103 MEQ/L (98-107); CREATININE FOR GFR 1.01 MG/DL (0.70-1.30); GLOMERULAR FILTRATION RATE > 60.0 (>42); GLUCOSE, FASTING 96 MG/DL (70-100); MAGNESIUM LEVEL 1.9 MG/DL (1.8-2.4); PHOSPHORUS LEVEL 2.3 MG/DL (2.5-4.9); SODIUM LEVEL 137 MEQ/L (136-145); TOTAL PROTEIN 6.6 GM/DL (6.4-8.2)
[2021-10-22 08:00] VITALS: BP 119/57
[2021-10-22] MEDS: CARVedilol 12.5 MG TAB PO SCH ×2 (09:00→20:34)
[2021-10-22] MEDS: K-PHOS NEUTRAL 250MG TABLET (SOD.PHOSPHATE/POT.PHOSPHATE) PO SCH ×3 (09:31→20:33)
[2021-10-22] MEDS: FERROUS SULFATE 325MG TAB PO SCH (09:31)
[2021-10-22] MEDS: ASPIRIN 81 MG CHEW TABLET PO SCH (09:32)
[2021-10-22] MEDS: SPIRONOLACTONE 6.25 MG PER 1/4 TAB PO SCH (09:32)
[2021-10-22] MEDS: LISINOPRIL *2.5 MG* TAB PO SCH (09:32)
[2021-10-22] MEDS: GABAPENTIN 300 MG CAP PO SCH ×2 (09:32→20:34)
[2021-10-22] MEDS: ATORVASTATIN 20 MG TAB PO SCH (09:33)
[2021-10-22] MEDS: PANTOPRAZOLE 40MG TAB (PROTONIX) PO SCH ×2 (09:33→20:34)
[2021-10-22] MEDS: ENOXAPARIN 60MG/0.6ML SYRINGE (J1650 PER 10MG) SC SCH ×2 (11:20→23:59)
[2021-10-22 20:00] VITALS: BP 109/55
[2021-10-22] MEDS: ROSUVASTATIN 10 MG TAB (CRESTOR) PO SCH (20:33)
[2021-10-23] MEDS: ACETAMINOPHEN TAB 650MG DOSE (2X325MG) PO PRN ×2 (01:28→20:15)
[2021-10-23] MEDS: MORPHINE 2 MG/ML 1ML VIAL IV PRN (02:46)
[2021-10-23 04:00] VITALS: BP 100/49
[2021-10-23 07:22] VITALS: BP 141/65
[2021-10-23] MEDS: PANTOPRAZOLE 40MG TAB (PROTONIX) PO SCH ×2 (08:38→20:06)
[2021-10-23] MEDS: K-PHOS NEUTRAL 250MG TABLET (SOD.PHOSPHATE/POT.PHOSPHATE) PO SCH ×3 (08:38→20:05)
[2021-10-23] MEDS: GABAPENTIN 300 MG CAP PO SCH ×2 (08:38→20:05)
[2021-10-23] MEDS: ATORVASTATIN 20 MG TAB PO SCH (08:38)
[2021-10-23] MEDS: ASPIRIN 81 MG CHEW TABLET PO SCH (08:38)
[2021-10-23] MEDS: FERROUS SULFATE 325MG TAB PO SCH (08:38)
[2021-10-23] MEDS: SPIRONOLACTONE 6.25 MG PER 1/4 TAB PO SCH (08:39)
[2021-10-23] MEDS: LISINOPRIL *2.5 MG* TAB PO SCH (08:39)
[2021-10-23] MEDS: CARVedilol 12.5 MG TAB PO SCH ×2 (08:39→20:06)
[2021-10-23] MEDS: ENOXAPARIN 60MG/0.6ML SYRINGE (J1650 PER 10MG) SC SCH (11:29)
[2021-10-23] MEDS: K-PHOS ORIGINAL (POT.ACID PHOSPHATE) 500MG TAB PO SCH ×2 (13:09→20:05)
[2021-10-23 16:09] VITALS: BP 111/56
[2021-10-23] MEDS: ROSUVASTATIN 10 MG TAB (CRESTOR) PO SCH (20:05)
[2021-10-23 20:07] VITALS: BP 114/55
[2021-10-24] MEDS: ACETAMINOPHEN TAB 650MG DOSE (2X325MG) PO PRN (05:43)
[2021-10-24 05:48] VITALS: BP 115/56
[2021-10-24 07:42] LABS: HEMATOCRIT 27.3 % (42.0-52.0); HEMOGLOBIN 8.2 g/dl (13.5-17.5); MEAN CORPUSCULAR HEMOGLOBIN 25.7 pg (27.0-33.0); MEAN CORPUSCULAR VOLUME 85.6 fl (80.0-96.0); PLATELET COUNT, AUTOMATED 307 10^3/uL (150-450); RED BLOOD COUNT 3.19 10^6/uL (4.30-6.10)
[2021-10-24 08:19] LABS: BLOOD UREA NITROGEN 26 MG/DL (7-18); CALCIUM LEVEL 8.2 MG/DL (8.8-10.2); CARBON DIOXIDE LEVEL 27 MEQ/L (21-32); CHLORIDE LEVEL 103 MEQ/L (98-107); CREATININE FOR GFR 0.92 MG/DL (0.70-1.30); GLOMERULAR FILTRATION RATE > 60.0 (>42); GLUCOSE, FASTING 89 MG/DL (70-100); MAGNESIUM LEVEL 1.8 MG/DL (1.8-2.4); PHOSPHORUS LEVEL 2.7 MG/DL (2.5-4.9); POTASSIUM SERUM 4.4 MEQ/L (3.5-5.1); SODIUM LEVEL 137 MEQ/L (136-145)
[2021-10-24] MEDS: ASPIRIN 81 MG CHEW TABLET PO SCH (09:00)
[2021-10-24] MEDS: GABAPENTIN 300 MG CAP PO SCH ×2 (09:45→20:53)
[2021-10-24] MEDS: PANTOPRAZOLE 40MG TAB (PROTONIX) PO SCH ×2 (09:45→20:53)
[2021-10-24] MEDS: FERROUS SULFATE 325MG TAB PO SCH (09:46)
[2021-10-24] MEDS: CARVedilol 12.5 MG TAB PO SCH ×2 (09:46→20:03)
[2021-10-24] MEDS: ATORVASTATIN 20 MG TAB PO SCH (09:46)
[2021-10-24 11:46] LABS: HEPATITIS B SURFACE ANTIGEN NEGATIVE (NEGATIVE)
[2021-10-24 12:00] VITALS: BP 100/64
[2021-10-24 14:07] LABS: HEPATITIS B CORE ANTIBODY IGM NEGATIVE (NEGATIVE); HEPATITIS C VIRUS ABY INDEX < 0.0 INDEX (<0.8)
[2021-10-24 20:05] VITALS: BP 101/49
[2021-10-25 04:00] VITALS: BP 131/61
[2021-10-25 06:45] LABS: HEMOGLOBIN 8.9 g/dl (13.5-17.5); MEAN CORPUSCULAR HEMOGLOBIN 26.4 pg (27.0-33.0); MEAN CORPUSCULAR HGB CONC 29.7 g/dl (32.0-36.5); PLATELET COUNT, AUTOMATED 330 10^3/uL (150-450); RED BLOOD COUNT 3.37 10^6/uL (4.30-6.10); WHITE BLOOD COUNT 7.3 10^3/uL (4.0-10.0)
[2021-10-25 07:24] LABS: GLUCOSE, FASTING 113 MG/DL (70-100)
[2021-10-25 07:25] LABS: BLOOD UREA NITROGEN 23 MG/DL (7-18); CALCIUM LEVEL 8.7 MG/DL (8.8-10.2); CARBON DIOXIDE LEVEL 28 mmol/L (20-29); CHLORIDE LEVEL 105 MEQ/L (98-107); CREATININE FOR GFR 0.93 MG/DL (0.70-1.30); GLOMERULAR FILTRATION RATE > 60.0 (>42); POTASSIUM SERUM 4.2 MEQ/L (3.5-5.1); SODIUM LEVEL 139 MEQ/L (136-145)
[2021-10-25] MEDS: SPIRONOLACTONE 6.25 MG PER 1/4 TAB PO SCH (09:00)
[2021-10-25] MEDS: LISINOPRIL *2.5 MG* TAB PO SCH (09:00)
[2021-10-25] MEDS: ENOXAPARIN 60MG/0.6ML SYRINGE (J1650 PER 10MG) SC SCH (11:00)
[2021-10-25] MEDS: PANTOPRAZOLE 40MG TAB (PROTONIX) PO SCH ×2 (11:10→19:51)
[2021-10-25] MEDS: GABAPENTIN 300 MG CAP PO SCH ×2 (11:10→19:52)
[2021-10-25] MEDS: PIPERACILLIN/TAZOBACTAM SOD 3.375 GM in D5W MINI-BAG PLUS 50 ML IV SCH ×3 (11:10→19:53)
[2021-10-25] MEDS: ASPIRIN 81 MG CHEW TABLET PO SCH (11:10)
[2021-10-25] MEDS: FERROUS SULFATE 325MG TAB PO SCH (11:10)
[2021-10-25] MEDS: CARVedilol 12.5 MG TAB PO SCH ×2 (11:10→19:52)
[2021-10-25 12:00] VITALS: BP 105/50
[2021-10-25] MEDS: DOXYCYCLINE HYCLATE 100 MG in D5W MINI-BAG PLUS 100 ML IV SCH ×2 (12:29→22:46)
[2021-10-25 19:48] VITALS: BP 115/64
[2021-10-25] MEDS: ROSUVASTATIN 10 MG TAB (CRESTOR) PO SCH (19:52)
[2021-10-25] MEDS: ALBUTEROL SULFATE 2.5 MG/0.5 ML INH NEB SOLN INH PRN (21:36)
[2021-10-26] MEDS: PIPERACILLIN/TAZOBACTAM SOD 3.375 GM in D5W MINI-BAG PLUS 50 ML IV SCH ×4 (03:36→21:57)
[2021-10-26 04:22] VITALS: BP 116/55
[2021-10-26 06:40] LABS: HEMATOCRIT 29.1 % (42.0-52.0); HEMOGLOBIN 8.7 g/dl (13.5-17.5); MEAN CORPUSCULAR HEMOGLOBIN 26.5 pg (27.0-33.0); MEAN CORPUSCULAR HGB CONC 29.9 g/dl (32.0-36.5); MEAN CORPUSCULAR VOLUME 88.7 fl (80.0-96.0); PLATELET COUNT, AUTOMATED 294 10^3/uL (150-450); RED BLOOD COUNT 3.28 10^6/uL (4.30-6.10); WHITE BLOOD COUNT 7.4 10^3/uL (4.0-10.0)
[2021-10-26 06:56] LABS: INR 1.26; PROTHROMBIN TIME 16.2 SECONDS (12.7-14.5)
[2021-10-26 06:57] LABS: PARTIAL THROMBOPLASTIN TIME 37.2 SECONDS (25.9-37.0)
[2021-10-26 07:03] LABS: BLOOD UREA NITROGEN 21 MG/DL (7-18); CALCIUM LEVEL 8.6 MG/DL (8.8-10.2); CARBON DIOXIDE LEVEL 29 MEQ/L (21-32); CHLORIDE LEVEL 103 MEQ/L (98-107); CREATININE FOR GFR 0.91 MG/DL (0.70-1.30); GLOMERULAR FILTRATION RATE > 60.0 (>42); GLUCOSE, FASTING 120 MG/DL (70-100); POTASSIUM SERUM 3.9 MEQ/L (3.5-5.1); SODIUM LEVEL 137 MEQ/L (136-145)
[2021-10-26] MEDS: CARVedilol 12.5 MG TAB PO SCH ×2 (09:00→21:00)
[2021-10-26] MEDS: ASPIRIN 81 MG CHEW TABLET PO SCH (09:07)
[2021-10-26] MEDS: PANTOPRAZOLE 40MG TAB (PROTONIX) PO SCH ×2 (09:07→21:00)
[2021-10-26] MEDS: FERROUS SULFATE 325MG TAB PO SCH (09:07)
[2021-10-26] MEDS: GABAPENTIN 300 MG CAP PO SCH ×2 (09:07→21:00)
[2021-10-26 10:15] VITALS: BP 103/51
[2021-10-26] MEDS ORDERED: DOXYCYCLINE HYCLATE 100MG/10ML VIAL As Ordered ONE (12:19)
[2021-10-26] MEDS ORDERED: fentaNYL 100 MCG/2 ML INJECTION As Ordered ONE ×2 (12:22→15:44)
[2021-10-26] MEDS ORDERED: ETOMIDATE INJ 20MG/10ML VIAL As Ordered ONE (12:22)
[2021-10-26] MEDS ORDERED: VASOPRESSIN INJ 20 UNITS/ML VIAL As Ordered ONE (13:00)
[2021-10-26] MEDS ORDERED: ROCURONIUM BROMIDE 50 MG/5 ML VIAL As Ordered ONE ×2 (13:07→14:04)
[2021-10-26] MEDS ORDERED: HEPARIN SOD (PORCINE) 5000UNITS/ML 1ML VIAL/SYRINGE As Ordered ONE ×2 (13:33→14:04)
[2021-10-26] MEDS ORDERED: ZOSYN 3.375GM VIAL As Ordered ONE (13:56)
[2021-10-26] MEDS ORDERED: THROMBIN SOLN 5,000 UNITS VIAL As Ordered ONE ×2 (14:07→15:32)
[2021-10-26] MEDS ORDERED: dexameTHASONE 4 MG/ML 1ML VIAL (J1100 PER 1MG) As Ordered ONE (15:38)
[2021-10-26] MEDS ORDERED: ONDANSETRON 4MG 2ML VIAL As Ordered ONE (15:38)
[2021-10-26] MEDS ORDERED: SUGAMMADEX SODIUM 500 MG/5 ML VIAL (BRIDION) As Ordered ONE (15:40)
[2021-10-26] MEDS ORDERED: ACETAMINOPHEN 1000MG 100ML IV BTL (OFIRMEV) (J0131 PER 10MG) As Ordered ONE (15:41)
[2021-10-26] MEDS ORDERED: PROTAMINE SULF 50MG/5ML VIAL (J2720 PER 10MG) As Ordered ONE (16:01)
[2021-10-26] MEDS ORDERED: ONDANSETRON 4MG 2ML VIAL IV PRN (16:55)
[2021-10-26] MEDS ORDERED: LR 1,000 ML IV SCH (16:55)
[2021-10-26] MEDS ORDERED: fentaNYL 100 MCG/2 ML INJECTION IV PRN (16:55)
[2021-10-26] MEDS ORDERED: oxyCODONE 5MG TAB PO PRN (16:55)
[2021-10-26] MEDS: HYDROMORPHONE HCL 0.5 MG/ 0.5 ML SYRINGE (J1170 PER 1) IV PRN ×2 (17:14→17:27)
[2021-10-26 17:23] LABS: HEMATOCRIT 33.2 % (42.0-52.0); HEMOGLOBIN 10.4 g/dl (13.5-17.5); MEAN CORPUSCULAR HEMOGLOBIN 28.1 pg (27.0-33.0); MEAN CORPUSCULAR HGB CONC 31.3 g/dl (32.0-36.5); MEAN CORPUSCULAR VOLUME 89.7 fl (80.0-96.0); PLATELET COUNT, AUTOMATED 226 10^3/uL (150-450)
[2021-10-26] MEDS ORDERED: FUROSEMIDE 40MG/4ML VIAL (J1940) IV ONE (17:35)
[2021-10-26] MEDS ORDERED: FUROSEMIDE 20MG/2ML VIAL (J1940) As Ordered ONE (17:37)
[2021-10-26 18:02] LABS: NT-PRO BNP 21166 PG/ML (<450)
[2021-10-26] MEDS: DOXYCYCLINE HYCLATE 100 MG in D5W MINI-BAG PLUS 100 ML IV SCH ×2 (18:08→23:04)
[2021-10-26 18:28] VITALS: BP 117/59
[2021-10-26 18:34] LABS: BLOOD UREA NITROGEN 19 MG/DL (7-18); CALCIUM LEVEL 8.1 MG/DL (8.8-10.2); CARBON DIOXIDE LEVEL 26 MEQ/L (21-32); CHLORIDE LEVEL 108 MEQ/L (98-107); CREATININE FOR GFR 0.85 MG/DL (0.70-1.30); GLOMERULAR FILTRATION RATE > 60.0 (>42); GLUCOSE, FASTING 144 MG/DL (70-100); MAGNESIUM LEVEL 1.7 MG/DL (1.8-2.4); PHOSPHORUS LEVEL 3.6 MG/DL (2.5-4.9); POTASSIUM SERUM 4.7 MEQ/L (3.5-5.1); SODIUM LEVEL 140 MEQ/L (136-145)
[2021-10-26 20:00] VITALS: BP 104/51
[2021-10-26] MEDS: ROSUVASTATIN 10 MG TAB (CRESTOR) PO SCH (21:00)
[2021-10-26 22:00] VITALS: BP 107/51
[2021-10-26 23:01] VITALS: BP 98/47
[2021-10-27] VITALS (17 sets, daily range): BP systolic 88–124; BP diastolic 46–75
[2021-10-27] MEDS: PIPERACILLIN/TAZOBACTAM SOD 3.375 GM in D5W MINI-BAG PLUS 50 ML IV SCH ×4 (04:27→20:45)
[2021-10-27 05:41] LABS: HEMATOCRIT 32.8 % (42.0-52.0); HEMOGLOBIN 10.3 g/dl (13.5-17.5); MEAN CORPUSCULAR HEMOGLOBIN 28.5 pg (27.0-33.0); MEAN CORPUSCULAR HGB CONC 31.4 g/dl (32.0-36.5); MEAN CORPUSCULAR VOLUME 90.6 fl (80.0-96.0); PLATELET COUNT, AUTOMATED 219 10^3/uL (150-450); RED BLOOD COUNT 3.62 10^6/uL (4.30-6.10); WHITE BLOOD COUNT 9.7 10^3/uL (4.0-10.0)
[2021-10-27 06:07] LABS: BLOOD UREA NITROGEN 18 MG/DL (7-18); CALCIUM LEVEL 8.4 MG/DL (8.8-10.2); CARBON DIOXIDE LEVEL 31 MEQ/L (21-32); CHLORIDE LEVEL 103 MEQ/L (98-107); CREATININE FOR GFR 1.05 MG/DL (0.70-1.30); GLOMERULAR FILTRATION RATE > 60.0 (>42); GLUCOSE, FASTING 139 MG/DL (70-100); NT-PRO BNP 13240 PG/ML (<450); POTASSIUM SERUM 4.7 MEQ/L (3.5-5.1); SODIUM LEVEL 138 MEQ/L (136-145)
[2021-10-27] MEDS: CARVedilol 12.5 MG TAB PO SCH ×2 (08:28→20:44)
[2021-10-27] MEDS: ASPIRIN 81 MG CHEW TABLET PO SCH (08:28)
[2021-10-27] MEDS: FERROUS SULFATE 325MG TAB PO SCH (08:28)
[2021-10-27] MEDS: PANTOPRAZOLE 40MG TAB (PROTONIX) PO SCH ×2 (08:29→20:44)
[2021-10-27] MEDS: GABAPENTIN 300 MG CAP PO SCH ×2 (08:29→20:44)
[2021-10-27] MEDS: DOXYCYCLINE HYCLATE 100 MG in D5W MINI-BAG PLUS 100 ML IV SCH ×2 (10:07→22:38)
[2021-10-27] MEDS ORDERED: LIDOCAINE 5% (LIDODERM) PATCH TD ONE (14:00)
[2021-10-27] MEDS: ROSUVASTATIN 10 MG TAB (CRESTOR) PO SCH (20:44)
[2021-10-27] MEDS: guaiFENesin ER 600 MG TAB PO SCH (20:45)
[2021-10-27] MEDS ORDERED: **NOTE PATIENT COMMENT** MISC XX SCH (21:00)
[2021-10-27] MEDS: ENOXAPARIN 60MG/0.6ML SYRINGE (J1650 PER 10MG) SC SCH (22:39)
[2021-10-28] VITALS: BP 105/47
[2021-10-28] MEDS: PIPERACILLIN/TAZOBACTAM SOD 3.375 GM in D5W MINI-BAG PLUS 50 ML IV SCH ×4 (03:30→20:29)
[2021-10-28 04:00] VITALS: BP 109/54
[2021-10-28 07:34] VITALS: BP 122/66
[2021-10-28 07:49] LABS: HEMATOCRIT 30.8 % (42.0-52.0); HEMOGLOBIN 9.5 g/dl (13.5-17.5); MEAN CORPUSCULAR HEMOGLOBIN 27.9 pg (27.0-33.0); MEAN CORPUSCULAR HGB CONC 30.8 g/dl (32.0-36.5); MEAN CORPUSCULAR VOLUME 90.3 fl (80.0-96.0); PLATELET COUNT, AUTOMATED 194 10^3/uL (150-450); RED BLOOD COUNT 3.41 10^6/uL (4.30-6.10); WHITE BLOOD COUNT 10.1 10^3/uL (4.0-10.0)
[2021-10-28] MEDS: ASPIRIN 81 MG CHEW TABLET PO SCH (08:10)
[2021-10-28] MEDS: CARVedilol 12.5 MG TAB PO SCH ×2 (08:11→20:29)
[2021-10-28] MEDS: GABAPENTIN 300 MG CAP PO SCH ×2 (08:11→20:29)
[2021-10-28] MEDS: PANTOPRAZOLE 40MG TAB (PROTONIX) PO SCH ×2 (08:11→20:29)
[2021-10-28] MEDS: FERROUS SULFATE 325MG TAB PO SCH (08:11)
[2021-10-28] MEDS: guaiFENesin ER 600 MG TAB PO SCH ×2 (08:12→20:30)
[2021-10-28 08:18] LABS: BLOOD UREA NITROGEN 24 MG/DL (7-18); CALCIUM LEVEL 8.8 MG/DL (8.8-10.2); CARBON DIOXIDE LEVEL 28 MEQ/L (21-32); CHLORIDE LEVEL 104 MEQ/L (98-107); CREATININE FOR GFR 1.22 MG/DL (0.70-1.30); GLOMERULAR FILTRATION RATE > 60.0 (>42); GLUCOSE, FASTING 136 MG/DL (70-100); POTASSIUM SERUM 4.3 MEQ/L (3.5-5.1); SODIUM LEVEL 140 MEQ/L (136-145)
[2021-10-28] MEDS: DOXYCYCLINE HYCLATE 100 MG in D5W MINI-BAG PLUS 100 ML IV SCH (09:38)
[2021-10-28] MEDS: ENOXAPARIN 60MG/0.6ML SYRINGE (J1650 PER 10MG) SC SCH ×2 (10:36→22:06)
[2021-10-28 12:00] VITALS: BP 126/58
[2021-10-28 20:00] VITALS: BP 128/62
[2021-10-28] MEDS: DOXYCYCLINE HYCLATE 100MG TABLET PO SCH (20:29)
[2021-10-28] MEDS: ROSUVASTATIN 10 MG TAB (CRESTOR) PO SCH (20:29)
[2021-10-29] MEDS: PIPERACILLIN/TAZOBACTAM SOD 3.375 GM in D5W MINI-BAG PLUS 50 ML IV SCH ×4 (02:24→21:56)
[2021-10-29 04:00] VITALS: BP 120/56
[2021-10-29 05:52] LABS: HEMOGLOBIN 9.1 g/dl (13.5-17.5); MEAN CORPUSCULAR HEMOGLOBIN 28.5 pg (27.0-33.0); MEAN CORPUSCULAR HGB CONC 31.4 g/dl (32.0-36.5); MEAN CORPUSCULAR VOLUME 90.9 fl (80.0-96.0); PLATELET COUNT, AUTOMATED 177 10^3/uL (150-450); RED BLOOD COUNT 3.19 10^6/uL (4.30-6.10); WHITE BLOOD COUNT 8.9 10^3/uL (4.0-10.0)
[2021-10-29 06:21] LABS: ALBUMIN 2.4 GM/DL (3.2-5.2); BILIRUBIN,TOTAL 1.3 MG/DL (0.2-1.0); CALCIUM LEVEL 8.6 MG/DL (8.8-10.2); CREATININE FOR GFR 1.31 MG/DL (0.70-1.30); GLOMERULAR FILTRATION RATE 56.2 (>42); TOTAL PROTEIN 5.9 GM/DL (6.4-8.2)
[2021-10-29] MEDS: GABAPENTIN 300 MG CAP PO SCH ×2 (08:43→21:55)
[2021-10-29] MEDS: ASPIRIN 81 MG CHEW TABLET PO SCH (08:43)
[2021-10-29] MEDS: DOXYCYCLINE HYCLATE 100MG TABLET PO SCH ×2 (08:43→21:56)
[2021-10-29] MEDS: guaiFENesin ER 600 MG TAB PO SCH ×2 (08:44→21:54)
[2021-10-29] MEDS: CARVedilol 12.5 MG TAB PO SCH ×2 (08:44→21:55)
[2021-10-29] MEDS: PANTOPRAZOLE 40MG TAB (PROTONIX) PO SCH ×2 (08:44→21:54)
[2021-10-29 08:56] VITALS: BP 164/79
[2021-10-29] MEDS: FERROUS SULFATE 325MG TAB PO SCH (12:00)
[2021-10-29] MEDS: ENOXAPARIN 60MG/0.6ML SYRINGE (J1650 PER 10MG) SC SCH ×2 (13:13→22:18)
[2021-10-29 16:31] VITALS: BP 120/63
[2021-10-29] MEDS: ROSUVASTATIN 10 MG TAB (CRESTOR) PO SCH (21:54)
[2021-10-29 22:00] VITALS: BP 115/56
[2021-10-30] MEDS: PIPERACILLIN/TAZOBACTAM SOD 3.375 GM in D5W MINI-BAG PLUS 50 ML IV SCH ×4 (02:48→21:17)
[2021-10-30 06:00] VITALS: BP 113/48
[2021-10-30 07:38] LABS: HEMATOCRIT 29.3 % (42.0-52.0); HEMOGLOBIN 9.2 g/dl (13.5-17.5); MEAN CORPUSCULAR HEMOGLOBIN 28.4 pg (27.0-33.0); MEAN CORPUSCULAR HGB CONC 31.4 g/dl (32.0-36.5); MEAN CORPUSCULAR VOLUME 90.4 fl (80.0-96.0); PLATELET COUNT, AUTOMATED 174 10^3/uL (150-450); RED BLOOD COUNT 3.24 10^6/uL (4.30-6.10); WHITE BLOOD COUNT 8.6 10^3/uL (4.0-10.0)
[2021-10-30 08:00] LABS: ALBUMIN 2.3 GM/DL (3.2-5.2); BILIRUBIN,TOTAL 1.1 MG/DL (0.2-1.0); CALCIUM LEVEL 8.6 MG/DL (8.8-10.2); CREATININE FOR GFR 1.37 MG/DL (0.70-1.30); GLOMERULAR FILTRATION RATE 53.4 (>42); POTASSIUM SERUM 3.8 MEQ/L (3.5-5.1); TOTAL PROTEIN 5.8 GM/DL (6.4-8.2)
[2021-10-30] MEDS: ENOXAPARIN 60MG/0.6ML SYRINGE (J1650 PER 10MG) SC SCH ×2 (10:02→22:12)
[2021-10-30] MEDS: GABAPENTIN 300 MG CAP PO SCH ×2 (10:02→21:16)
[2021-10-30] MEDS: DOXYCYCLINE HYCLATE 100MG TABLET PO SCH ×2 (10:03→21:16)
[2021-10-30] MEDS: PANTOPRAZOLE 40MG TAB (PROTONIX) PO SCH ×2 (10:03→21:17)
[2021-10-30] MEDS: CARVedilol 12.5 MG TAB PO SCH ×2 (10:08→21:27)
[2021-10-30] MEDS: guaiFENesin ER 600 MG TAB PO SCH ×2 (10:12→21:16)
[2021-10-30] MEDS: ASPIRIN 81 MG CHEW TABLET PO SCH (10:12)
[2021-10-30] MEDS: FERROUS SULFATE 325MG TAB PO SCH (12:24)
[2021-10-30 14:00] VITALS: BP 106/50
[2021-10-30] MEDS: ROSUVASTATIN 10 MG TAB (CRESTOR) PO SCH (21:16)
[2021-10-30 22:00] VITALS: BP 132/76
[2021-10-31] MEDS: PIPERACILLIN/TAZOBACTAM SOD 3.375 GM in D5W MINI-BAG PLUS 50 ML IV SCH ×5 (02:14→22:00)
[2021-10-31 06:00] VITALS: BP 125/70
[2021-10-31 06:29] LABS: HEMATOCRIT 29.4 % (42.0-52.0); HEMOGLOBIN 8.8 g/dl (13.5-17.5); MEAN CORPUSCULAR HEMOGLOBIN 27.4 pg (27.0-33.0); MEAN CORPUSCULAR HGB CONC 29.9 g/dl (32.0-36.5); MEAN CORPUSCULAR VOLUME 91.6 fl (80.0-96.0); PLATELET COUNT, AUTOMATED 188 10^3/uL (150-450); RED BLOOD COUNT 3.21 10^6/uL (4.30-6.10); WHITE BLOOD COUNT 9.2 10^3/uL (4.0-10.0)
[2021-10-31 06:53] LABS: ALBUMIN 2.3 GM/DL (3.2-5.2); CALCIUM LEVEL 8.5 MG/DL (8.8-10.2); CREATININE FOR GFR 1.37 MG/DL (0.70-1.30); GLOMERULAR FILTRATION RATE 53.4 (>42); POTASSIUM SERUM 3.7 MEQ/L (3.5-5.1); TOTAL PROTEIN 5.9 GM/DL (6.4-8.2)
[2021-10-31 07:00] VITALS: BP 100/60
[2021-10-31] MEDS: GABAPENTIN 300 MG CAP PO SCH ×3 (09:00→21:26)
[2021-10-31] MEDS: guaiFENesin ER 600 MG TAB PO SCH ×3 (09:00→21:27)
[2021-10-31] MEDS: DOXYCYCLINE HYCLATE 100MG TABLET PO SCH ×3 (09:00→21:26)
[2021-10-31] MEDS: ASPIRIN 81 MG CHEW TABLET PO SCH (09:00)
[2021-10-31] MEDS: PANTOPRAZOLE 40MG TAB (PROTONIX) PO SCH ×3 (09:00→21:26)
[2021-10-31] MEDS: CARVedilol 12.5 MG TAB PO SCH ×2 (09:01→21:00)
[2021-10-31] MEDS: ENOXAPARIN 60MG/0.6ML SYRINGE (J1650 PER 10MG) SC SCH (10:58)
[2021-10-31] MEDS: FERROUS SULFATE 325MG TAB PO SCH (13:22)
[2021-10-31 14:00] VITALS: BP 123/70
[2021-10-31] MEDS ORDERED: ALBUTEROL 90 MCG/ACT 8GM HFA INHALER INH PRN (15:55)
[2021-10-31] MEDS: FUROSEMIDE 40 MG TAB PO SCH (16:45)
[2021-10-31] MEDS: ROSUVASTATIN 10 MG TAB (CRESTOR) PO SCH ×2 (21:00→21:27)
[2021-11-01] MEDS: PIPERACILLIN/TAZOBACTAM SOD 3.375 GM in D5W MINI-BAG PLUS 50 ML IV SCH ×4 (02:50→20:41)
[2021-11-01 06:21] VITALS: BP 112/57
[2021-11-01 08:43] LABS: BASO # 0.1 10^3/uL (0.0-0.2); BASO % 0.6 % (0.0-1.0); EOS # 0.1 10^3/uL (0.0-0.5); EOS % 0.8 % (0.0-3.0); HEMATOCRIT 30.3 % (42.0-52.0); HEMOGLOBIN 9.3 g/dl (13.5-17.5); LYMPH % 9.2 % (24.0-44.0); MEAN CORPUSCULAR HEMOGLOBIN 27.8 pg (27.0-33.0); MEAN CORPUSCULAR HGB CONC 30.7 g/dl (32.0-36.5); MEAN CORPUSCULAR VOLUME 90.4 fl (80.0-96.0); MONO # 0.9 10^3/uL (0.0-0.8); MONO % 7.8 % (2.0-8.0); NEUTROPHILS # 8.9 10^3/uL (1.5-8.5); NEUTROPHILS % 81.1 % (36.0-66.0); PLATELET COUNT, AUTOMATED 188 10^3/uL (150-450); RED BLOOD COUNT 3.35 10^6/uL (4.30-6.10); WHITE BLOOD COUNT 10.9 10^3/uL (4.0-10.0)
[2021-11-01] MEDS: RIVAROXABAN 15MG TAB (XARELTO) PO SCH (08:56)
[2021-11-01] MEDS: ASPIRIN 81 MG CHEW TABLET PO SCH (08:58)
[2021-11-01] MEDS: PANTOPRAZOLE 40MG TAB (PROTONIX) PO SCH ×2 (08:58→20:41)
[2021-11-01] MEDS: GABAPENTIN 300 MG CAP PO SCH ×2 (08:58→20:41)
[2021-11-01] MEDS: DOXYCYCLINE HYCLATE 100MG TABLET PO SCH (08:59)
[2021-11-01] MEDS: FUROSEMIDE 40 MG TAB PO SCH ×2 (09:01→18:17)
[2021-11-01] MEDS: CARVedilol 12.5 MG TAB PO SCH ×2 (09:02→20:41)
[2021-11-01] MEDS: ISOSORBIDE MON. (IMDUR) 30MG XR TAB PO SCH (09:02)
[2021-11-01] MEDS: guaiFENesin ER 600 MG TAB PO SCH ×2 (09:04→20:40)
[2021-11-01 09:18] LABS: ALBUMIN 2.3 GM/DL (3.2-5.2); BILIRUBIN,TOTAL 1.4 MG/DL (0.2-1.0); CALCIUM LEVEL 9.2 MG/DL (8.8-10.2); CREATININE FOR GFR 1.34 MG/DL (0.70-1.30); GLOMERULAR FILTRATION RATE 54.7 (>42); MAGNESIUM LEVEL 2.1 MG/DL (1.8-2.4); POTASSIUM SERUM 3.4 MEQ/L (3.5-5.1); TOTAL PROTEIN 6.2 GM/DL (6.4-8.2)
[2021-11-01] MEDS: FERROUS SULFATE 325MG TAB PO SCH (12:11)
[2021-11-01] MEDS ORDERED: NS 1,000 ML IV SCH (12:30)
[2021-11-01] MEDS ORDERED: ISOVUE-370 76% 100ML VIAL As Ordered ONE (12:33)
[2021-11-01 14:00] VITALS: BP 132/64
[2021-11-01] MEDS: ROSUVASTATIN 10 MG TAB (CRESTOR) PO SCH (20:40)
[2021-11-01] MEDS: ACETAMINOPHEN TAB 650MG DOSE (2X325MG) PO PRN (20:42)
[2021-11-02] MEDS: PIPERACILLIN/TAZOBACTAM SOD 3.375 GM in D5W MINI-BAG PLUS 50 ML IV SCH ×4 (02:20→20:37)
[2021-11-02 02:26] VITALS: BP 103/48
[2021-11-02] MEDS: CARVedilol 12.5 MG TAB PO SCH ×2 (09:00→20:39)
[2021-11-02] MEDS: FUROSEMIDE 40 MG TAB PO SCH ×2 (09:00→17:44)
[2021-11-02] MEDS: ISOSORBIDE MON. (IMDUR) 30MG XR TAB PO SCH (09:00)
[2021-11-02] MEDS: guaiFENesin ER 600 MG TAB PO SCH ×2 (09:00→21:02)
[2021-11-02 09:03] LABS: BASO # 0.1 10^3/uL (0.0-0.2); BASO % 0.5 % (0.0-1.0); EOS # 0.4 10^3/uL (0.0-0.5); EOS % 4.6 % (0.0-3.0); HEMATOCRIT 29.9 % (42.0-52.0); HEMOGLOBIN 9.1 g/dl (13.5-17.5); LYMPH # 1.1 10^3/uL (1.5-5.0); MEAN CORPUSCULAR HEMOGLOBIN 28.1 pg (27.0-33.0); MEAN CORPUSCULAR HGB CONC 30.4 g/dl (32.0-36.5); MEAN CORPUSCULAR VOLUME 92.3 fl (80.0-96.0); MONO # 0.7 10^3/uL (0.0-0.8); MONO % 7.5 % (2.0-8.0); NEUTROPHILS # 6.9 10^3/uL (1.5-8.5); PLATELET COUNT, AUTOMATED 202 10^3/uL (150-450); RED BLOOD COUNT 3.24 10^6/uL (4.30-6.10); WHITE BLOOD COUNT 9.2 10^3/uL (4.0-10.0)
[2021-11-02 09:27] LABS: ALBUMIN 2.2 GM/DL (3.2-5.2); BILIRUBIN,TOTAL 1.2 MG/DL (0.2-1.0); CALCIUM LEVEL 8.6 MG/DL (8.8-10.2); CREATININE FOR GFR 1.35 MG/DL (0.70-1.30); GLOMERULAR FILTRATION RATE 54.3 (>42); POTASSIUM SERUM 3.3 MEQ/L (3.5-5.1); TOTAL PROTEIN 5.9 GM/DL (6.4-8.2)
[2021-11-02] MEDS: ASPIRIN 81 MG CHEW TABLET PO SCH (09:38)
[2021-11-02] MEDS: PANTOPRAZOLE 40MG TAB (PROTONIX) PO SCH ×2 (09:38→20:58)
[2021-11-02] MEDS: GABAPENTIN 300 MG CAP PO SCH ×2 (09:38→20:58)
[2021-11-02] MEDS: RIVAROXABAN 15MG TAB (XARELTO) PO SCH (09:39)
[2021-11-02] MEDS: FERROUS SULFATE 325MG TAB PO SCH (12:22)
[2021-11-02 14:00] VITALS: BP 134/77
[2021-11-02] MEDS ORDERED: GLYCERIN ADULT SUPP PR ONE (15:00)
[2021-11-02 20:39] VITALS: BP 91/66
[2021-11-02] MEDS: SENNA 8.6 MG TAB (SENOKOT) PO SCH (20:58)
[2021-11-02] MEDS: MIRALAX *UNIT DOSE* 17GM PACKET PO SCH (21:02)
[2021-11-02] MEDS: ROSUVASTATIN 10 MG TAB (CRESTOR) PO SCH (21:02)
[2021-11-03] MEDS: PIPERACILLIN/TAZOBACTAM SOD 3.375 GM in D5W MINI-BAG PLUS 50 ML IV SCH ×4 (02:29→20:42)
[2021-11-03 06:29] VITALS: BP 94/66
[2021-11-03] MEDS: MIRALAX *UNIT DOSE* 17GM PACKET PO SCH ×2 (08:24→20:42)
[2021-11-03] MEDS: ASPIRIN 81 MG CHEW TABLET PO SCH (08:26)
[2021-11-03] MEDS: RIVAROXABAN 15MG TAB (XARELTO) PO SCH (08:26)
[2021-11-03] MEDS: GABAPENTIN 300 MG CAP PO SCH ×2 (08:26→20:43)
[2021-11-03] MEDS: PANTOPRAZOLE 40MG TAB (PROTONIX) PO SCH ×2 (08:26→20:42)
[2021-11-03] MEDS: SENNA 8.6 MG TAB (SENOKOT) PO SCH ×2 (08:26→20:43)
[2021-11-03] MEDS: guaiFENesin ER 600 MG TAB PO SCH ×2 (08:27→20:43)
[2021-11-03] MEDS: FUROSEMIDE 40 MG TAB PO SCH ×2 (08:28→16:53)
[2021-11-03] MEDS: CARVedilol 12.5 MG TAB PO SCH ×2 (09:00→20:41)
[2021-11-03] MEDS: ISOSORBIDE MON. (IMDUR) 30MG XR TAB PO SCH (09:00)
[2021-11-03 09:05] LABS: BASO # 0.1 10^3/uL (0.0-0.2); BASO % 0.5 % (0.0-1.0); EOS # 0.5 10^3/uL (0.0-0.5); EOS % 5.1 % (0.0-3.0); HEMATOCRIT 32.8 % (42.0-52.0); HEMOGLOBIN 10.1 g/dl (13.5-17.5); LYMPH # 1.1 10^3/uL (1.5-5.0); MEAN CORPUSCULAR HEMOGLOBIN 28.1 pg (27.0-33.0); MEAN CORPUSCULAR HGB CONC 30.8 g/dl (32.0-36.5); MEAN CORPUSCULAR VOLUME 91.1 fl (80.0-96.0); MONO # 0.8 10^3/uL (0.0-0.8); MONO % 7.7 % (2.0-8.0); NEUTROPHILS # 7.6 10^3/uL (1.5-8.5); NEUTROPHILS % 75.2 % (36.0-66.0); PLATELET COUNT, AUTOMATED 214 10^3/uL (150-450); WHITE BLOOD COUNT 10.1 10^3/uL (4.0-10.0)
[2021-11-03 09:34] LABS: ALBUMIN 2.3 GM/DL (3.2-5.2); BILIRUBIN,TOTAL 1.2 MG/DL (0.2-1.0); CALCIUM LEVEL 8.7 MG/DL (8.8-10.2); CREATININE FOR GFR 1.49 MG/DL (0.70-1.30); GLOMERULAR FILTRATION RATE 48.4 (>42); MAGNESIUM LEVEL 2.1 MG/DL (1.8-2.4); POTASSIUM SERUM 3.1 MEQ/L (3.5-5.1); TOTAL PROTEIN 6.3 GM/DL (6.4-8.2)
[2021-11-03] MEDS ORDERED: FERROUS SULFATE 300MG/5ML UDC LIQUID PO SCH (12:00)
[2021-11-03 13:50] VITALS: BP 102/63
[2021-11-03] MEDS: POTASSIUM CHLORIDE 10% LIQ 20 MEQ/15 ML UDC PO SCH ×2 (14:21→16:54)
[2021-11-03] MEDS: FERROUS SULFATE 300MG/5ML UDC LIQUID PO SCH (14:21)
[2021-11-03 16:15] LABS: C REACTIVE PROTEIN QUANTITATIV 6.37 MG/DL (0.00-0.30)
[2021-11-03] MEDS: ROSUVASTATIN 10 MG TAB (CRESTOR) PO SCH (20:43)
[2021-11-03 22:00] VITALS: BP 111/61
[2021-11-04] MEDS: LevoFLOXacin 500 MG TABLET PO SCH (05:56)
[2021-11-04 05:57] LABS: BASO # 0.1 10^3/uL (0.0-0.2); BASO % 0.5 % (0.0-1.0); EOS # 0.6 10^3/uL (0.0-0.5); EOS % 6.4 % (0.0-3.0); HEMATOCRIT 34.2 % (42.0-52.0); HEMOGLOBIN 10.5 g/dl (13.5-17.5); LYMPH % 10.8 % (24.0-44.0); MEAN CORPUSCULAR HEMOGLOBIN 27.9 pg (27.0-33.0); MEAN CORPUSCULAR HGB CONC 30.7 g/dl (32.0-36.5); MEAN CORPUSCULAR VOLUME 90.7 fl (80.0-96.0); MONO # 0.8 10^3/uL (0.0-0.8); MONO % 8.1 % (2.0-8.0); NEUTROPHILS # 7.1 10^3/uL (1.5-8.5); NEUTROPHILS % 73.7 % (36.0-66.0); PLATELET COUNT, AUTOMATED 235 10^3/uL (150-450); RED BLOOD COUNT 3.77 10^6/uL (4.30-6.10); WHITE BLOOD COUNT 9.6 10^3/uL (4.0-10.0)
[2021-11-04 06:00] VITALS: BP 129/81
[2021-11-04 06:39] LABS: ALBUMIN 2.2 GM/DL (3.2-5.2); BILIRUBIN,TOTAL 1.2 MG/DL (0.2-1.0); CALCIUM LEVEL 8.7 MG/DL (8.8-10.2); CREATININE FOR GFR 1.78 MG/DL (0.70-1.30); GLOMERULAR FILTRATION RATE 39.4 (>42); MAGNESIUM LEVEL 2.1 MG/DL (1.8-2.4); POTASSIUM SERUM 3.3 MEQ/L (3.5-5.1); TOTAL PROTEIN 6.2 GM/DL (6.4-8.2)
[2021-11-04] MEDS ORDERED: NS 1,000 ML IV SCH (08:35)
[2021-11-04] MEDS: FUROSEMIDE 40 MG TAB PO SCH (09:00)
[2021-11-04] MEDS: guaiFENesin ER 600 MG TAB PO SCH ×2 (09:00→20:06)
[2021-11-04] MEDS: CARVedilol 12.5 MG TAB PO SCH ×2 (09:00→20:14)
[2021-11-04] MEDS: PANTOPRAZOLE 40MG TAB (PROTONIX) PO SCH ×2 (09:00→20:05)
[2021-11-04] MEDS: ISOSORBIDE MON. (IMDUR) 30MG XR TAB PO SCH (09:00)
[2021-11-04] MEDS: GABAPENTIN 300 MG CAP PO SCH ×2 (09:07→20:05)
[2021-11-04] MEDS: MIRALAX *UNIT DOSE* 17GM PACKET PO SCH ×2 (09:07→20:05)
[2021-11-04] MEDS: RIVAROXABAN 15MG TAB (XARELTO) PO SCH (09:07)
[2021-11-04] MEDS: ASPIRIN 81 MG CHEW TABLET PO SCH (09:07)
[2021-11-04] MEDS: SENNA 8.6 MG TAB (SENOKOT) PO SCH ×2 (09:07→20:05)
[2021-11-04 10:00] LABS: APPEARANCE, URINE CLOUDY (CLEAR); BACTERIA, URINE AUTO NEGATIVE (NEGATIVE); BILIRUBIN, URINE AUTO NEGATIVE (NEGATIVE); BLOOD, URINE BLOOD 3+ (NEGATIVE); COLOR, URINE YELLOW (YELLOW); GLUCOSE, URINE (UA) AUTO NEGATIVE (NEGATIVE); KETONE, URINE AUTO NEGATIVE (NEGATIVE); LEUKOCYTE ESTERASE, URINE AUTO 1+ (NEGATIVE); MUCUS, URINE SMALL (NEGATIVE); NITRITE, URINE AUTO NEGATIVE (NEGATIVE); PROTEIN, URINE AUTO 1+ mg/dL (NEGATIVE); RBC, URINE AUTO 132 /HPF (0-3); SPECIFIC GRAVITY URINE AUTO 1.023 (1.002-1.035); SQUAMOUS EPITHELIAL CELL UR AU 0 /HPF (0-6); TRIPLE PHOSPHATE CRYSTALS SMALL; UROBILINOGEN, URINE AUTO 0.2 mg/dL (0.0-2.0); WBC, URINE AUTO 19 /HPF (0-3)
[2021-11-04] MEDS: FERROUS SULFATE 300MG/5ML UDC LIQUID PO SCH (12:02)
[2021-11-04 14:00] VITALS: BP 110/66
[2021-11-04] MEDS: ROSUVASTATIN 10 MG TAB (CRESTOR) PO SCH (20:05)
[2021-11-04 20:15] VITALS: BP 100/55
[2021-11-05] MEDS: LevoFLOXacin 500 MG TABLET PO SCH (05:48)
[2021-11-05 05:58] VITALS: BP 98/64
[2021-11-05 07:24] LABS: BASO # 0.1 10^3/uL (0.0-0.2); BASO % 0.6 % (0.0-1.0); EOS # 0.6 10^3/uL (0.0-0.5); EOS % 6.5 % (0.0-3.0); HEMATOCRIT 33.6 % (42.0-52.0); HEMOGLOBIN 10.1 g/dl (13.5-17.5); LYMPH % 11.3 % (24.0-44.0); MEAN CORPUSCULAR HEMOGLOBIN 27.2 pg (27.0-33.0); MEAN CORPUSCULAR HGB CONC 30.1 g/dl (32.0-36.5); MEAN CORPUSCULAR VOLUME 90.6 fl (80.0-96.0); MONO # 0.7 10^3/uL (0.0-0.8); MONO % 8.7 % (2.0-8.0); NEUTROPHILS # 6.2 10^3/uL (1.5-8.5); NEUTROPHILS % 72.4 % (36.0-66.0); PLATELET COUNT, AUTOMATED 235 10^3/uL (150-450); RED BLOOD COUNT 3.71 10^6/uL (4.30-6.10); WHITE BLOOD COUNT 8.5 10^3/uL (4.0-10.0)
[2021-11-05] MEDS: RIVAROXABAN 15MG TAB (XARELTO) PO SCH (07:42)
[2021-11-05] MEDS: guaiFENesin ER 600 MG TAB PO SCH ×2 (07:42→20:22)
[2021-11-05] MEDS: ASPIRIN 81 MG CHEW TABLET PO SCH (07:42)
[2021-11-05] MEDS: SENNA 8.6 MG TAB (SENOKOT) PO SCH ×2 (07:42→20:22)
[2021-11-05] MEDS: PANTOPRAZOLE 40MG TAB (PROTONIX) PO SCH ×2 (07:42→20:22)
[2021-11-05] MEDS: GABAPENTIN 300 MG CAP PO SCH ×2 (07:43→20:21)
[2021-11-05] MEDS: CARVedilol 12.5 MG TAB PO SCH (07:46)
[2021-11-05] MEDS: ISOSORBIDE MON. (IMDUR) 30MG XR TAB PO SCH (07:48)
[2021-11-05] MEDS: MIRALAX *UNIT DOSE* 17GM PACKET PO SCH ×2 (07:49→20:22)
[2021-11-05 08:00] LABS: ALBUMIN 2.1 GM/DL (3.2-5.2); CALCIUM LEVEL 8.5 MG/DL (8.8-10.2); CREATININE FOR GFR 1.95 MG/DL (0.70-1.30); GLOMERULAR FILTRATION RATE 35.5 (>42); MAGNESIUM LEVEL 2.2 MG/DL (1.8-2.4); POTASSIUM SERUM 3.2 MEQ/L (3.5-5.1)
[2021-11-05] MEDS ORDERED: POTASSIUM CHLORIDE 10MEQ SR TABLET PO ONE (12:20)
[2021-11-05] MEDS: FERROUS SULFATE 300MG/5ML UDC LIQUID PO SCH (13:27)
[2021-11-05 14:00] VITALS: BP 113/66
[2021-11-05 20:16] VITALS: BP 103/61
[2021-11-05] MEDS: METOPROLOL TART 25 MG TABLET PO SCH (20:22)
[2021-11-05] MEDS: ROSUVASTATIN 10 MG TAB (CRESTOR) PO SCH (20:22)
[2021-11-06 05:56] VITALS: BP 102/60
[2021-11-06] MEDS: LevoFLOXacin 500 MG TABLET PO SCH (06:07)
[2021-11-06 06:48] LABS: BASO % 0.3 % (0.0-1.0); EOS # 0.1 10^3/uL (0.0-0.5); EOS % 1.3 % (0.0-3.0); HEMATOCRIT 35.9 % (42.0-52.0); LYMPH # 0.9 10^3/uL (1.5-5.0); LYMPH % 10.5 % (24.0-44.0); MEAN CORPUSCULAR HEMOGLOBIN 27.5 pg (27.0-33.0); MEAN CORPUSCULAR HGB CONC 30.6 g/dl (32.0-36.5); MEAN CORPUSCULAR VOLUME 89.8 fl (80.0-96.0); MONO # 0.7 10^3/uL (0.0-0.8); MONO % 7.9 % (2.0-8.0); NEUTROPHILS # 6.9 10^3/uL (1.5-8.5); NEUTROPHILS % 79.7 % (36.0-66.0); PLATELET COUNT, AUTOMATED 258 10^3/uL (150-450); WHITE BLOOD COUNT 8.7 10^3/uL (4.0-10.0)
[2021-11-06 07:29] LABS: ALBUMIN 2.4 GM/DL (3.2-5.2); BILIRUBIN,TOTAL 1.2 MG/DL (0.2-1.0); CALCIUM LEVEL 8.7 MG/DL (8.8-10.2); CREATININE FOR GFR 2.03 MG/DL (0.70-1.30); GLOMERULAR FILTRATION RATE 33.9 (>42); MAGNESIUM LEVEL 2.3 MG/DL (1.8-2.4); POTASSIUM SERUM 3.7 MEQ/L (3.5-5.1); TOTAL PROTEIN 6.5 GM/DL (6.4-8.2)
[2021-11-06] MEDS: ISOSORBIDE MON. (IMDUR) 30MG XR TAB PO SCH (09:00)
[2021-11-06] MEDS: METOPROLOL TART 25 MG TABLET PO SCH ×2 (09:00→20:57)
[2021-11-06] MEDS: MIRALAX *UNIT DOSE* 17GM PACKET PO SCH ×2 (09:00→20:58)
[2021-11-06] MEDS: PANTOPRAZOLE 40MG TAB (PROTONIX) PO SCH ×2 (09:39→20:57)
[2021-11-06] MEDS: RIVAROXABAN 15MG TAB (XARELTO) PO SCH (09:39)
[2021-11-06] MEDS: ASPIRIN 81 MG CHEW TABLET PO SCH (09:39)
[2021-11-06] MEDS: SENNA 8.6 MG TAB (SENOKOT) PO SCH ×2 (09:39→20:58)
[2021-11-06] MEDS: guaiFENesin ER 600 MG TAB PO SCH ×2 (09:40→20:57)
[2021-11-06] MEDS: GABAPENTIN 300 MG CAP PO SCH ×2 (09:40→20:57)
[2021-11-06] MEDS: FERROUS SULFATE 300MG/5ML UDC LIQUID PO SCH (11:45)
[2021-11-06 14:00] VITALS: BP 101/62
[2021-11-06] MEDS: ACETAMINOPHEN TAB 650MG DOSE (2X325MG) PO PRN (20:56)
[2021-11-06] MEDS: ROSUVASTATIN 10 MG TAB (CRESTOR) PO SCH (20:57)
[2021-11-06 22:00] VITALS: BP 100/68
[2021-11-07] MEDS: LevoFLOXacin 500 MG TABLET PO SCH (05:08)
[2021-11-07 06:00] VITALS: BP 127/100
[2021-11-07 06:43] LABS: BASO # 0.1 10^3/uL (0.0-0.2); BASO % 0.6 % (0.0-1.0); EOS # 0.4 10^3/uL (0.0-0.5); EOS % 4.6 % (0.0-3.0); HEMATOCRIT 36.3 % (42.0-52.0); LYMPH # 0.8 10^3/uL (1.5-5.0); LYMPH % 8.7 % (24.0-44.0); MEAN CORPUSCULAR HEMOGLOBIN 27.4 pg (27.0-33.0); MEAN CORPUSCULAR HGB CONC 30.3 g/dl (32.0-36.5); MEAN CORPUSCULAR VOLUME 90.5 fl (80.0-96.0); MONO # 0.6 10^3/uL (0.0-0.8); MONO % 6.5 % (2.0-8.0); NEUTROPHILS # 7.1 10^3/uL (1.5-8.5); NEUTROPHILS % 79.2 % (36.0-66.0); PLATELET COUNT, AUTOMATED 243 10^3/uL (150-450); RED BLOOD COUNT 4.01 10^6/uL (4.30-6.10)
[2021-11-07 07:19] LABS: ALBUMIN 2.2 GM/DL (3.2-5.2); BILIRUBIN,TOTAL 1.4 MG/DL (0.2-1.0); CALCIUM LEVEL 8.6 MG/DL (8.8-10.2); CREATININE FOR GFR 1.88 MG/DL (0.70-1.30); MAGNESIUM LEVEL 2.3 MG/DL (1.8-2.4); POTASSIUM SERUM 3.4 MEQ/L (3.5-5.1); TOTAL PROTEIN 6.2 GM/DL (6.4-8.2)
[2021-11-07] MEDS ORDERED: POTASSIUM CHLORIDE 10MEQ SR TABLET PO ONE (07:50)
[2021-11-07] MEDS: MIRALAX *UNIT DOSE* 17GM PACKET PO SCH ×2 (09:00→21:20)
[2021-11-07] MEDS: METOPROLOL TART 25 MG TABLET PO SCH ×2 (09:00→21:20)
[2021-11-07] MEDS: ISOSORBIDE MON. (IMDUR) 30MG XR TAB PO SCH (09:00)
[2021-11-07] MEDS: GABAPENTIN 300 MG CAP PO SCH ×2 (09:45→21:19)
[2021-11-07] MEDS: RIVAROXABAN 15MG TAB (XARELTO) PO SCH (09:45)
[2021-11-07] MEDS: SENNA 8.6 MG TAB (SENOKOT) PO SCH ×2 (09:45→21:19)
[2021-11-07] MEDS: PANTOPRAZOLE 40MG TAB (PROTONIX) PO SCH ×2 (09:45→21:17)
[2021-11-07] MEDS: ASPIRIN 81 MG CHEW TABLET PO SCH (09:45)
[2021-11-07] MEDS: guaiFENesin ER 600 MG TAB PO SCH ×2 (09:47→21:19)
[2021-11-07] MEDS: FERROUS SULFATE 300MG/5ML UDC LIQUID PO SCH (12:47)
[2021-11-07 14:00] VITALS: BP 112/56
[2021-11-07] MEDS: ACETAMINOPHEN TAB 650MG DOSE (2X325MG) PO PRN (14:28)
[2021-11-07 17:10] LABS: HEMATOCRIT 34.2 % (42.0-52.0); HEMOGLOBIN 10.3 g/dl (13.5-17.5); MEAN CORPUSCULAR HGB CONC 30.1 g/dl (32.0-36.5); MEAN CORPUSCULAR VOLUME 92.9 fl (80.0-96.0); PLATELET COUNT, AUTOMATED 229 10^3/uL (150-450); RED BLOOD COUNT 3.68 10^6/uL (4.30-6.10); WHITE BLOOD COUNT 8.9 10^3/uL (4.0-10.0)
[2021-11-07 17:28] LABS: INR 3.61; PROTHROMBIN TIME 36.2 SECONDS (12.7-14.5)
[2021-11-07 17:29] LABS: PARTIAL THROMBOPLASTIN TIME 67.8 SECONDS (25.9-37.0)
[2021-11-07 19:08] LABS: HEPATITIS B CORE ANTIBODY IGM NEGATIVE (NEGATIVE); HEPATITIS B SURFACE ANTIGEN NEGATIVE (NEGATIVE); HEPATITIS C VIRUS ABY INDEX < 0.0 INDEX (<0.8)
[2021-11-07 20:03] VITALS: BP 112/73
[2021-11-07] MEDS ORDERED: RAMELTEON 8 MG TAB (ROZEREM) PO PRN (20:35)
[2021-11-07 21:11] LABS: RHEUMATOID FACTOR QUANT 77.2 IU/ML (<15.0)
[2021-11-07] MEDS: ROSUVASTATIN 10 MG TAB (CRESTOR) PO SCH (21:19)
[2021-11-08] MEDS: LevoFLOXacin 500 MG TABLET PO SCH (05:49)
[2021-11-08 05:54] VITALS: BP 110/56
[2021-11-08 06:57] LABS: BASO % 0.3 % (0.0-1.0); EOS # 0.3 10^3/uL (0.0-0.5); EOS % 3.1 % (0.0-3.0); HEMATOCRIT 35.5 % (42.0-52.0); HEMOGLOBIN 10.8 g/dl (13.5-17.5); LYMPH # 0.8 10^3/uL (1.5-5.0); LYMPH % 8.1 % (24.0-44.0); MEAN CORPUSCULAR HEMOGLOBIN 27.3 pg (27.0-33.0); MEAN CORPUSCULAR HGB CONC 30.4 g/dl (32.0-36.5); MEAN CORPUSCULAR VOLUME 89.9 fl (80.0-96.0); MONO # 0.5 10^3/uL (0.0-0.8); MONO % 5.2 % (2.0-8.0); NEUTROPHILS # 8.1 10^3/uL (1.5-8.5); NEUTROPHILS % 82.8 % (36.0-66.0); PLATELET COUNT, AUTOMATED 252 10^3/uL (150-450); RED BLOOD COUNT 3.95 10^6/uL (4.30-6.10); WHITE BLOOD COUNT 9.8 10^3/uL (4.0-10.0)
[2021-11-08 07:28] LABS: ALBUMIN 2.3 GM/DL (3.2-5.2); BILIRUBIN,TOTAL 1.3 MG/DL (0.2-1.0); CALCIUM LEVEL 8.5 MG/DL (8.8-10.2); CREATININE FOR GFR 1.8 MG/DL (0.70-1.30); GLOMERULAR FILTRATION RATE 38.9 (>42); MAGNESIUM LEVEL 2.2 MG/DL (1.8-2.4); TOTAL PROTEIN 6.5 GM/DL (6.4-8.2)
[2021-11-08] MEDS: MIRALAX *UNIT DOSE* 17GM PACKET PO SCH ×2 (09:00→20:14)
[2021-11-08] MEDS: ISOSORBIDE MON. (IMDUR) 30MG XR TAB PO SCH (09:00)
[2021-11-08] MEDS: PANTOPRAZOLE 40MG TAB (PROTONIX) PO SCH (09:00)
[2021-11-08] MEDS: guaiFENesin ER 600 MG TAB PO SCH ×2 (09:00→20:14)
[2021-11-08] MEDS: RIVAROXABAN 15MG TAB (XARELTO) PO SCH (09:34)
[2021-11-08 09:35] VITALS: BP 114/75
[2021-11-08] MEDS: SENNA 8.6 MG TAB (SENOKOT) PO SCH ×2 (09:35→20:14)
[2021-11-08] MEDS: GABAPENTIN 300 MG CAP PO SCH ×2 (09:35→20:14)
[2021-11-08] MEDS: METOPROLOL TART 25 MG TABLET PO SCH (09:35)
[2021-11-08] MEDS: ASPIRIN 81 MG CHEW TABLET PO SCH (09:35)
[2021-11-08] MEDS ORDERED: NS 0.45% 1,000 ML IV SCH (11:30)
[2021-11-08] MEDS: FERROUS SULFATE 300MG/5ML UDC LIQUID PO SCH (11:52)
[2021-11-08 14:00] VITALS: BP 111/58
[2021-11-08] MEDS ORDERED: ACETAMINOPHEN TAB 650MG DOSE (2X325MG) PO PRN (16:00)
[2021-11-08] MEDS ORDERED: LORazepam 2 MG/ML VIAL IV PRN (16:00)
[2021-11-08] MEDS ORDERED: SCOPOLAMINE 1MG TRANSDERMAL PATCH TOP PRN (16:00)
[2021-11-08] MEDS ORDERED: MORPHINE 2 MG/ML 1ML VIAL IV PRN (16:00)
[2021-11-08] MEDS: MORPHINE 10MG/0.5ML ORAL CONCENTRATE SOLUTION U/D SL PRN (23:37)
[2021-11-09] MEDS: MORPHINE 10MG/0.5ML ORAL CONCENTRATE SOLUTION U/D SL PRN ×4 (03:23→17:33)
[2021-11-09] MEDS: LORazepam 1 MG TAB PO PRN ×4 (03:23→17:33)
[2021-11-09 06:18] LABS: BASO % 0.6 % (0.0-1.0); EOS # 0.1 10^3/uL (0.0-0.5); EOS % 1.9 % (0.0-3.0); HEMATOCRIT 32.8 % (42.0-52.0); HEMOGLOBIN 9.9 g/dl (13.5-17.5); LYMPH # 0.9 10^3/uL (1.5-5.0); LYMPH % 13.8 % (24.0-44.0); MEAN CORPUSCULAR HEMOGLOBIN 27.4 pg (27.0-33.0); MEAN CORPUSCULAR HGB CONC 30.2 g/dl (32.0-36.5); MEAN CORPUSCULAR VOLUME 90.9 fl (80.0-96.0); MONO # 0.7 10^3/uL (0.0-0.8); MONO % 10.7 % (2.0-8.0); NEUTROPHILS # 4.9 10^3/uL (1.5-8.5); NEUTROPHILS % 72.6 % (36.0-66.0); PLATELET COUNT, AUTOMATED 207 10^3/uL (150-450); RED BLOOD COUNT 3.61 10^6/uL (4.30-6.10); WHITE BLOOD COUNT 6.7 10^3/uL (4.0-10.0)
[2021-11-09 06:56] LABS: ALBUMIN 2.1 GM/DL (3.2-5.2); BILIRUBIN,TOTAL 1.2 MG/DL (0.2-1.0); CALCIUM LEVEL 8.6 MG/DL (8.8-10.2); CREATININE FOR GFR 1.78 MG/DL (0.70-1.30); GLOMERULAR FILTRATION RATE 39.4 (>42); MAGNESIUM LEVEL 2.2 MG/DL (1.8-2.4); POTASSIUM SERUM 3.8 MEQ/L (3.5-5.1); TOTAL PROTEIN 5.9 GM/DL (6.4-8.2)
[2021-11-09] MEDS: MIRALAX *UNIT DOSE* 17GM PACKET PO SCH (07:28)
[2021-11-09] MEDS: GABAPENTIN 300 MG CAP PO SCH (07:33)
[2021-11-09] MEDS: guaiFENesin ER 600 MG TAB PO SCH (07:33)
[2021-11-09] MEDS: SENNA 8.6 MG TAB (SENOKOT) PO SCH (07:33)
[2021-11-11 17:07] LABS: ANA (HEP2) Negative (.); ANCA-ATYPICAL <1:20 titer (Neg:<1:20); CYTOPLASMIC NEUTROP AB ANCA-C <1:20 titer (Neg:<1:20); PERINUCLEAR AB ANCA-P <1:20 titer (Neg:<1:20)
== END 2021-11-10 04:05 | disposition expired | DRG 252 ==
LOC: M ED 22:30 → EDBD 22:30 → M ED INP 10-17 05:48 → ENRESERVDT 10-17 06:26 → ENRESERV 10-17 06:26 → ENRESERVTM 10-17 06:26 → M PCU 10-17 08:59 → M 4MAIN 10-23 22:51 → M ICU 10-26 17:52 → M PCU 10-27 15:34 → M MS5PR 10-29 18:16
PROVIDERS: ADMIT Internal Medicine; ATTEND Family Medicine
PROC: 30233N1 Transfusion of Nonautologous Red Blood Cells into Peripheral Vein, Percutaneous Approach (ICD-10-PCS; 2021-10-23)
PROC: 04UL0KZ Supplement Left Femoral Artery with Nonautologous Tissue Substitute, Open Approach (ICD-10-PCS; 2021-10-26)
PROC: 04PY0DZ Removal of Intraluminal Device from Lower Artery, Open Approach (ICD-10-PCS; 2021-10-26)
PROC: 04UJ0KZ Supplement Left External Iliac Artery with Nonautologous Tissue Substitute, Open Approach (ICD-10-PCS; 2021-10-26)
PROC: 04CL0ZZ Extirpation of Matter from Left Femoral Artery, Open Approach (ICD-10-PCS; principal; 2021-10-26 10:10)
DX: T82.858A Stenosis of other vascular prosthetic devices, implants and grafts, initial encounter (principal); I50.43 Acute on chronic combined systolic (congestive) and diastolic (congestive) heart failure; J96.01 Acute respiratory failure with hypoxia; I70.262 Atherosclerosis of native arteries of extremities with gangrene, left leg; E46 Unspecified protein-calorie malnutrition; K92.1 Melena; J81.1 Chronic pulmonary edema; I48.20 Chronic atrial fibrillation, unspecified; D62 Acute posthemorrhagic anemia; M86.8X7 Other osteomyelitis, ankle and foot; J90 Pleural effusion, not elsewhere classified; N17.9 Acute kidney failure, unspecified; I97.648 Postprocedural seroma of a circulatory system organ or structure following other circulatory system procedure; L97.928 Non-pressure chronic ulcer of unspecified part of left lower leg with other specified severity; E11.52 Type 2 diabetes mellitus with diabetic peripheral angiopathy with gangrene; I11.0 Hypertensive heart disease with heart failure; Z51.5 Encounter for palliative care; Z66 Do not resuscitate; I25.10 Atherosclerotic heart disease of native coronary artery without angina pectoris; I70.201 Unspecified atherosclerosis of native arteries of extremities, right leg; Y83.1 Surgical operation with implant of artificial internal device as the cause of abnormal reaction of the patient, or of later complication, without mention of misadventure at the time of the procedure; D50.9 Iron deficiency anemia, unspecified; I25.5 Ischemic cardiomyopathy; R13.10 Dysphagia, unspecified; I71.4 Abdominal aortic aneurysm, without rupture; I27.20 Pulmonary hypertension, unspecified; K21.9 Gastro-esophageal reflux disease without esophagitis; I77.6 Arteritis, unspecified; R94.31 Abnormal electrocardiogram [ECG] [EKG]; L95.8 Other vasculitis limited to the skin; T82.7XXA Infection and inflammatory reaction due to other cardiac and vascular devices, implants and grafts, initial encounter; F17.210 Nicotine dependence, cigarettes, uncomplicated; Z95.820 Peripheral vascular angioplasty status with implants and grafts; Z95.1 Presence of aortocoronary bypass graft; Z79.82 Long term (current) use of aspirin; Z79.01 Long term (current) use of anticoagulants; Z79.899 Other long term (current) drug therapy; Z95.810 Presence of automatic (implantable) cardiac defibrillator; Z99.81 Dependence on supplemental oxygen; Z91.19 Patient's noncompliance with other medical treatment and regimen; Z95.2 Presence of prosthetic heart valve